=== PATIENT | male | born 1945 | race Caucasian/White ===

== ENCOUNTER → 2016-12-24 | Outpatient (CLI) | payer MEDICARE, OTHER ==
[2016-12-24 12:42] LABS: Basophils # (auto) 0 uL; Basophils % (auto) 0.6 % (0.0-2.0); Eosinophils # (auto) 0.2 uL; Eosinophils % (auto) 2.4 % (0.0-7.0); Hematocrit 49.4 % (41.0-53.0); Hemoglobin 16.3 g/dL (13.5-17.5); Lymphocytes # (auto) 2.3 uL; Mean Corpuscular Hemoglobin 30.7 pg (28.0-32.0); Mean Corpuscular Hgb Conc. 32.9 g/dL (32.0-36.0); Mean Corpuscular Volume 93.2 fL (80.0-100.0); Mean Platelet Volume 8.9 fL (7.4-10.4); Monocytes # (auto) 0.6 uL; Neutrophils # (auto) 4.9 uL; Platelet Count (auto) 303 10^3/uL (140-450); Red Cell Distribution Width 13.7 % (11.6-16.0)
[2016-12-24 14:15] LABS: Albumin 3.9 g/dL (3.4-5.0); BUN/Creatinine Ratio 18.8; Bilirubin, Direct 0.2 mg/dL (0-0.2); Bilirubin, Total 0.6 mg/dL (0.2-1.0); Potassium 4.1 mmol/L (3.5-5.1); Total Protein 7.8 g/dL (6.4-8.2)
== END | disposition home or self-care (01) ==
LOC: LAB 09:06
PROVIDERS: ATTEND Internal Medicine Cardiovascular Disease
DX: I10 Essential (primary) hypertension (principal); E78.00 Pure hypercholesterolemia, unspecified; K74.1 Hepatic sclerosis; E11.9 Type 2 diabetes mellitus without complications; R97.20 Elevated prostate specific antigen [PSA]; R53.81 Other malaise; E03.9 Hypothyroidism, unspecified; D64.9 Anemia, unspecified
CPT/HCPCS: 36415; 80048; 80061; 80076; 83036; 84153; 84403; 84443; 85025

== ENCOUNTER → 2017-02-01 | Outpatient (CLI) | payer MEDICARE, OTHER | END | disposition home or self-care (01) | LOC: HDHVI->DVH 11:23 | PROVIDERS: ATTEND Internal Medicine Cardiovascular Disease | DX: J44.9 Chronic obstructive pulmonary disease, unspecified (principal) | CPT/HCPCS: 93880 ==

== ENCOUNTER → 2017-02-24 | Outpatient (CLI) | payer MEDICARE, OTHER | END | disposition home or self-care (01) | LOC: Rad HDHVI 13:37 | PROVIDERS: ATTEND Internal Medicine Cardiovascular Disease | DX: Z86.79 Personal history of other diseases of the circulatory system (principal); F17.210 Nicotine dependence, cigarettes, uncomplicated | CPT/HCPCS: 78452; 93017; 96374; A9500 ==

== ENCOUNTER → 2017-08-29 | Outpatient (CLI) | payer MEDICARE, OTHER | END | disposition home or self-care (01) | LOC: LAB 11:10 | DX: Z11.3 Encounter for screening for infections with a predominantly sexual mode of transmission (principal) | CPT/HCPCS: 86592 ==

== ENCOUNTER → 2018-03-15 | Outpatient (CLI) | payer MEDICARE, OTHER ==
[~2018-03-15] VITALS: Ht 177.8 cm; Wt 59.0 kg
[2018-03-15 12:38] LABS: Basophils # (auto) 0.1 uL; Basophils % (auto) 0.8 % (0.0-2.0); Eosinophils # (auto) 0.2 uL; Eosinophils % (auto) 2.4 % (0.0-7.0); Hematocrit 48.4 % (41.0-53.0); Hemoglobin 16.3 g/dL (13.5-17.5); Lymphocytes # (auto) 2.5 uL; Mean Corpuscular Hemoglobin 31.3 pg (28.0-32.0); Mean Corpuscular Hgb Conc. 33.7 g/dL (32.0-36.0); Mean Corpuscular Volume 92.9 fL (80.0-100.0); Monocytes # (auto) 0.8 uL; Monocytes % (auto) 8.9 % (0.0-12.0); Neutrophils # (auto) 5.7 uL; Neutrophils % (auto) 60.9 % (37.0-80.0); Nucleated Red Blood Cells % 0.1 %; Platelet Count (auto) 235 10^3/uL (140-450); Red Blood Cells 5.21 10^6/uL (4.5-5.90); Red Cell Distribution Width 14.6 % (11.8-14.3); White Blood Cell 9.4 10^3/uL (4.4-10.8)
[2018-03-15 13:00] LABS: BUN/Creatinine Ratio 18.3; Free T4 (Free Thyroxine) 1.18 ng/dL (0.89-1.76); Potassium 4.2 mmol/L (3.5-5.1); Prostate Specific Antigen 1.83 ng/mL (0.0-4.0)
[2018-03-15 13:01] LABS: Albumin 3.9 g/dL (3.4-5.0); Bilirubin, Total 0.3 mg/dL (0.2-1.0); Calcium 9.2 mg/dL (8.5-10.1); Total Protein 7.3 g/dL (6.4-8.2)
[2018-03-15 17:30] LABS: Urine Blood Negative /uL (Negative); Urine Specific Gravity 1.023 (1.001-1.035)
== END | disposition home or self-care (01) ==
LOC: Rad HDHVI 10:08
PROVIDERS: ATTEND Internal Medicine Cardiovascular Disease
DX: Z00.01 Encounter for general adult medical examination with abnormal findings (principal); M65.341 Trigger finger, right ring finger; M25.531 Pain in right wrist; E03.9 Hypothyroidism, unspecified; E55.9 Vitamin D deficiency, unspecified; E11.9 Type 2 diabetes mellitus without complications; C61 Malignant neoplasm of prostate; E29.1 Testicular hypofunction; D51.9 Vitamin B12 deficiency anemia, unspecified; N39.0 Urinary tract infection, site not specified
CPT/HCPCS: 36415; 78452; 80053; 80061; 81003; 82306; 82607; 83036; 84153; 84403; 84439; 84443; 85025; 93017; 96374; A9500

== ENCOUNTER → 2018-07-05 | Outpatient (CLI) | payer MEDICARE, OTHER ==
[~2018-07-05] MED LIST: IOHEXOL 350 MG/ML 100ML IJ ONE
[2018-07-05 11:30] VITALS: BP 138/72
[2018-07-05 12:25] VITALS: BP 132/85
== END | disposition home or self-care (01) ==
LOC: Rad HDHVI 11:27
PROVIDERS: ATTEND Internal Medicine Cardiovascular Disease
DX: J43.9 Emphysema, unspecified (principal); J98.11 Atelectasis; I70.8 Atherosclerosis of other arteries; E11.9 Type 2 diabetes mellitus without complications
CPT/HCPCS: 71275; 82565; G0463; Q9967

== ENCOUNTER 2018-11-09 17:34 | Inpatient (IN) | payer MEDICARE, OTHER ==
[~2018-11-09] VITALS: Ht 172.7 cm; Wt 66.0 kg
[2018-11-09 19:10] LABS: Alanine Aminotransferase 26 U/L (16-61); Albumin 3.8 g/dL (3.4-5.0); Anion Gap 6 (5-15); Aspartate Aminotransferase 18 U/L (15-37); BUN/Creatinine Ratio 15.2; Blood Urea Nitrogen 15 mg/dL (7-18); Calcium 9.3 mg/dL (8.5-10.1); Carbon Dioxide 28 mmol/L (21-32); Chloride 105 mmol/L (98-107); GFR African American > 60 mL/min; GFR Non-African American > 60 mL/min; Glucose 89 mg/dL (74-106); Potassium 3.7 mmol/L (3.5-5.1); Sodium 139 mmol/L (136-145)
[2018-11-09 19:15] LABS: Alkaline Phosphatase 76 U/L (45-117); Bilirubin, Total 0.4 mg/dL (0.2-1.0)
[2018-11-09 19:18] LABS: Basophils # (auto) 0 uL; Basophils % (auto) 0.4 % (0.0-2.0); Eosinophils # (auto) 0.4 uL; Eosinophils % (auto) 3.6 % (0.0-7.0); Hematocrit 47.7 % (41.0-53.0); Hemoglobin 16.3 g/dL (13.5-17.5); Lymphocytes # (auto) 3.2 uL; Lymphocytes % (auto) 30.3 % (10.0-50.0); Mean Corpuscular Hemoglobin 31.6 pg (28.0-32.0); Mean Corpuscular Hgb Conc. 34.1 g/dL (32.0-36.0); Mean Corpuscular Volume 92.5 fL (80.0-100.0); Monocytes % (auto) 9.4 % (0.0-12.0); Neutrophils # (auto) 5.9 uL; Neutrophils % (auto) 56.3 % (37.0-80.0); Nucleated Red Blood Cells % 0.2 %; Platelet Count (auto) 269 10^3/uL (140-450); Red Blood Cells 5.15 10^6/uL (4.5-5.90); Red Cell Distribution Width 13.3 % (11.8-14.3); White Blood Cell 10.5 10^3/uL (4.4-10.8)
[2018-11-09] MEDS ORDERED: NITROGLYCERIN 0.4 MG SL TAB SL PRN (21:45)
[2018-11-09] MEDS ORDERED: MORPHINE SULFATE 4 MG/ML SYR/VIAL IV PRN (21:45)
[2018-11-09] MEDS ORDERED: HCTZ25T PO (21:57)
[2018-11-09] MEDS ORDERED: PRAS10TA6 PO (21:57)
[2018-11-09] MEDS ORDERED: ASCO500C49 PO (21:57)
[2018-11-09] MEDS ORDERED: FLUT1SPR5 (21:57)
[2018-11-09] MEDS ORDERED: IBUP-781 PO (21:57)
[2018-11-09] MEDS ORDERED: COEN400C8 PO (21:57)
[2018-11-09] MEDS ORDERED: CHOL200021 PO (21:57)
[2018-11-09] MEDS ORDERED: CALC667C PO (21:57)
[2018-11-09] MEDS ORDERED: CETI1TAB36 PO (21:57)
[2018-11-09 21:59] VITALS: BP 138/99
[2018-11-09] MEDS: ALBUTEROL SULF 2.5 MG/0.5ML(0.5%) NEB SOLN NEB SCH (22:00)
[2018-11-09] MEDS: SODIUM CHLORIDE 0.9% 1,000 ML IV SCH (22:30)
[2018-11-09 23:15] VITALS: BP 113/74
--- NOTE | 2018-11-09 23:15 | NUR ---
Telemetry admit from ER PAMELA PARKER admitted to Telemetry unit after SBAR received. Patient oriented to Wanda rueda RN, unit, room, bed, and unit policies regarding patient care and visiting hours. Patient now on continuous telemetry monitoring, tele box #30 and telemetry reading on arrival to unit is SINUS RHYTHM. Patient weighed by bedscale and encouraged to call if they need something. All questions and concerns addressed, patient verbalized understanding.
--- NOTE | 2018-11-10 00:15 | NUR ---
PERSONAL BELONGINGS PT STATES HE HAS A POCKET KNIFE IN HIS POSSESSION WILL PAGE SECURITY TO TAKE KNIFE INTO SAFE KEEPING
--- NOTE | 2018-11-10 01:13 | NUR ---
POCKET KNIFE "SKIP" FROM SECURITY PICKED UP PATIENT POCKET KNIFE PT EDUCATED THAT IT WILL BE RETURNED UPON DISCHARGE
[2018-11-10 01:32] LABS: Urine Bacteria FEW /hpf (None Seen); Urine Blood Negative /uL (Negative); Urine Specific Gravity 1.014 (1.001-1.035); Urine WBC 2 /hpf (0 - 3)
--- NOTE | 2018-11-10 01:34 | NUR ---
Respiratory note: AT BEDSIDE TO ASSESS PT. POX 94% ON RA. HR 98, BS ARE DIMINISHED CLEAR T/O. TX NOT INDICATED AT THIS TIME.
[2018-11-10 05:00] VITALS: BP 98/63
[2018-11-10] MEDS: ALBUTEROL SULF 2.5 MG/0.5ML(0.5%) NEB SOLN NEB SCH ×2 (06:00→14:10)
--- NOTE | 2018-11-10 07:19 | NUR ---
CLOSING NOTE REPORT ENDORSED TO DAY SHIFT RN PT IS SLEEPING. NO S/S OF DISTRESS CALL LIGHT WITHIN REACH
[2018-11-10 09:00] VITALS: BP 100/66
[2018-11-10] MEDS: SODIUM CHLORIDE 0.9% 1,000 ML IV SCH ×2 (09:58→18:39)
--- NOTE | 2018-11-10 10:20 | NUR ---
Respiratory note: PRN MED NEB TX NOT INDICATED AT THIS TIME, PATIENT IS RESTING COMFORTABLE IN BED WITH NO SS OF SOB/ RESP DISTRESS. SPO2 95% @ RA, HR 78, RR 16, B/S CLEAR WHITNEY T/O. WILL ENDORSE CARE TO NIGHT RT.
[2018-11-10] MEDS: cefTRIAXone 1GM/50ML D5W 50 ML IV SCH (11:55)
[2018-11-10 13:00] VITALS: BP 93/61
[2018-11-10 17:14] VITALS: BP 108/67
--- NOTE | 2018-11-10 19:20 | NUR ---
OPENING NOTE REPORT RECEIVED FROM DAY SHIFT RN. PATIENT RESTING COMFORTABLY IN BED. PT DENIES ANY PAIN OR DISTRESS AT THIS TIME. POC DISCUSSED FOR TONIGHT, ALL QUESTIONS ANSWERED. WILL MONITOR Q1H PRN THROUGHOUT SHIFT, CALL LIGHT WITHIN REACH.
[2018-11-10 21:30] VITALS: BP 106/65
--- NOTE | 2018-11-10 22:58 | NUR ---
Respiratory note: ASSESSED PT FOR PRN MED NEB AT THIS TIME, PT SLEEPING AT THIS TIME, NO RESP DISTRESS NOTED, NO TX INDICATED, PULSE OX 91% ON RA, HR 74, RR 20, BILATERAL BS DIMINISHED.
[2018-11-11] MEDS: SODIUM CHLORIDE 0.9% 1,000 ML IV SCH ×2 (04:02→14:48)
[2018-11-11 04:54] VITALS: BP 105/62
--- NOTE | 2018-11-11 07:27 | NUR ---
closing note report endorsed to day shift rn pt is sleeping. visible rise and fall of chest noted call light within reach
[2018-11-11 08:43] VITALS: BP 112/71
--- NOTE | 2018-11-11 09:24 | NUR ---
RT NOTE: PRN BREATHING TX. NOT INDICATED AT THIS TIME. NO S/S OF RESPIRATORY DISTRESS NOTED. PT. HR 82, RR 16, POX 95% ON R/A. PT. AWARE TO NOTIFY RN IF BREATHING TX. IS NEEDED.
[2018-11-11] MEDS ORDERED: GASTROGRAFIN 30 ML SOL ONE (12:19)
[2018-11-11 12:48] VITALS: BP 111/76
[2018-11-11] MEDS ORDERED: IOHEXOL 300 MG/ML 100ML BOTTLE IJ ONE (15:09)
[2018-11-11] MEDS: cefTRIAXone 1GM/50ML D5W 50 ML IV SCH (16:30)
[2018-11-11 17:18] VITALS: BP 122/73
--- NOTE | 2018-11-11 19:38 | NUR ---
Opening Shift Note Assumed care of patient, awake and alert. No S/S of distress/SOB or pain. Instructed on POC and to call for assist PRN, will continue to monitor for changes Q1hr and PRN.
[2018-11-11 22:00] VITALS: BP 116/70
--- NOTE | 2018-11-11 22:28 | NUR ---
Respiratory note: ASSESSED PT FOR PRN MED NEB AT THIS TIME, PT DENIES SOB AT THIS TIME, NO RESP DISTRESS NOTED, NO TX INDICATED. PULSE OX 92% ON RA, HR 76, RR 20, BILATERAL BS CLEAR
[2018-11-12] MEDS: SODIUM CHLORIDE 0.9% 1,000 ML IV SCH ×3 (00:40→22:35)
[2018-11-12 05:00] VITALS: BP 110/71
[2018-11-12 08:48] VITALS: BP 117/69
[2018-11-12] MEDS: cefTRIAXone 1GM/50ML D5W 50 ML IV SCH (09:38)
[2018-11-12 12:58] VITALS: BP 121/74
--- NOTE | 2018-11-12 14:10 | NUR ---
Respiratory note: PRN MEDNEB CHECK PT IN NO RESPIRATORY DISTRESS. SPO2 96% ON RA HR 62 RR 16 B/S CLEAR BILATERALLY. PT AWARE TO CALL RN AND HAVE THEM PAGE RT IF THEY BECOME SOB.
[2018-11-12 17:28] VITALS: BP 131/69
--- NOTE | 2018-11-12 19:00 | NUR ---
Patient care endorsed endorsed care to Apol rn
--- NOTE | 2018-11-12 20:05 | NUR ---
Respiratory note: ASSESSMENT FOR PRN MED NEB TX. HR 81, SPO2 95% ON ROOM AIR, RR 19, BS CLEAR. PT PRESENTING NO RESPIRATORY DISTRESS AT THIS TIME. WILL CONTINUE TO MONITOR.
[2018-11-12 20:31] VITALS: BP 131/69
[2018-11-12 22:02] VITALS: BP 124/80
[2018-11-13 05:19] VITALS: BP 105/64
[2018-11-13] MEDS: SODIUM CHLORIDE 0.9% 1,000 ML IV SCH ×2 (05:49→16:30)
[2018-11-13 07:50] VITALS: BP 116/67
[2018-11-13] MEDS: cefTRIAXone 1GM/50ML D5W 50 ML IV SCH (09:43)
--- NOTE | 2018-11-13 09:50 | NUR ---
Respiratory note: PT ASSESSED FOR PRN MN TX. HR 69, RR 14, POX 96% ON RA. BREATH SOUNDS CLEAR DIMINISHED. NO RESPIRATORY DISTRESS NOTED. PRN NOT INDICATED, NO TX GIVEN AT THIS TIME.
[2018-11-13 11:38] VITALS: BP 126/71
--- NOTE | 2018-11-13 15:01 | NUR ---
NUTRITION ASSESSMENT NOTES Please refer to link notes of nutrition screen form filed under the intervention section of the plan of care for further details. Est. Needs: 1650 kcal to 2000 kcal (25-30 kcal/kgBW), 66 gms to 79 gms pro (1.0-1.2 gms/kgBW). Will continue to monitor pertinent labs and reassess nutrient needs prn Thank you. Addendum: 11/13/18 at [address] Amended: Links added.
[2018-11-13 16:16] VITALS: BP 126/60
--- NOTE | 2018-11-13 17:23 | NUR ---
Spoke to MD MD Morrison aware of patients status. New orders received. Will d/c as ordered.
--- NOTE | 2018-11-13 19:10 | NUR ---
Discharge instructions given as ordered. Encourage to follow up with PMD as instructed. All questions and concerns addressed. Patient verbalized understanding. Medication reconciliation form completed and copy given to patient. IV removed with catheter intact, pressure dressing applied. Telemetry unit returned to [facility]. Patient awaiting pocket knife to be deliver to bedside by security staff. No s/s of distress or sob noted. Pt denies pain. Patient states he has his car down in ER. Pt awaiting knife with all other personal belongings. I informed oncoming sonny Lobo.
--- NOTE | 2018-11-13 19:38 | NUR ---
Jaspreet Song with security delivered knife to bedside.
--- NOTE | 2018-11-13 19:53 | NUR ---
Patient discharged via wheelchair assisted by TOPOGRAPHICAL ENGINEER, patient leaving via private car. Patient left in stable condition. No distress noted. All belongings accounted for.
== END 2018-11-13 19:45 | disposition home or self-care (01) | DRG 641 ==
LOC: ER 17:39 → TELE-WESTW 22:25
PROVIDERS: ADMIT Internal Medicine Cardiovascular Disease; ATTEND Internal Medicine Cardiovascular Disease
DX: E86.9 Volume depletion, unspecified (principal); R64 Cachexia; E46 Unspecified protein-calorie malnutrition; R53.1 Weakness; I10 Essential (primary) hypertension; J32.0 Chronic maxillary sinusitis; D72.829 Elevated white blood cell count, unspecified; F17.210 Nicotine dependence, cigarettes, uncomplicated; G83.9 Paralytic syndrome, unspecified; I25.10 Atherosclerotic heart disease of native coronary artery without angina pectoris; M19.90 Unspecified osteoarthritis, unspecified site; Z96.651 Presence of right artificial knee joint; J44.9 Chronic obstructive pulmonary disease, unspecified; Z88.1 Allergy status to other antibiotic agents; Z88.8 Allergy status to other drugs, medicaments and biological substances; Z68.22 Body mass index [BMI] 22.0-22.9, adult
CPT/HCPCS: 36415; 70450; 71046; 74177; 80053; 81001; 84484; 85025; 87040; 93005; 96374; G0378; J0696

== ENCOUNTER → 2019-03-20 | Outpatient (CLI) | payer MEDICARE, OTHER ==
[~2019-03-20] MED LIST changes: +ASCO500C49 PO; +CALC667C PO; +CETI1TAB36 PO; +CHOL200021 PO; +COEN400C8 PO; +FLUT1SPR5; +HCTZ25T PO; +IBUP-781 PO; -IOHEXOL 350 MG/ML 100ML IJ ONE; +PRAS10TA6 PO
== END | disposition home or self-care (01) ==
LOC: Rad HDHVI 10:59
PROVIDERS: ATTEND Internal Medicine Cardiovascular Disease
DX: I08.1 Rheumatic disorders of both mitral and tricuspid valves (principal); J44.9 Chronic obstructive pulmonary disease, unspecified; I25.10 Atherosclerotic heart disease of native coronary artery without angina pectoris
CPT/HCPCS: 93306

== ENCOUNTER → 2019-04-25 | Outpatient (CLI) | payer MEDICARE, OTHER ==
[~2019-04-25] VITALS: Ht 177.8 cm; Wt 63.5 kg
[~2019-04-25] MED LIST changes: +ADENOSINE 53 MG in GIVE UN-DILUTED 0 ML IV ONE; +ADENOSINE 90 MG/30 ML INJ IV ONE
[2019-04-25 15:47] LABS: Basophils # (auto) 0.1 uL; Basophils % (auto) 0.6 % (0.0-2.0); Eosinophils # (auto) 0.2 uL; Eosinophils % (auto) 2.1 % (0.0-7.0); Hematocrit 45.9 % (41.0-53.0); Hemoglobin 15.3 g/dL (13.5-17.5); Lymphocytes # (auto) 2.2 uL; Lymphocytes % (auto) 20.4 % (10.0-50.0); Mean Corpuscular Hemoglobin 30.9 pg (28.0-32.0); Mean Corpuscular Hgb Conc. 33.4 g/dL (32.0-36.0); Mean Corpuscular Volume 92.6 fL (80.0-100.0); Monocytes # (auto) 0.9 uL; Monocytes % (auto) 8.2 % (0.0-12.0); Neutrophils # (auto) 7.4 uL; Neutrophils % (auto) 68.7 % (37.0-80.0); Platelet Count (auto) 237 10^3/uL (140-450); Red Blood Cells 4.96 10^6/uL (4.5-5.90); Red Cell Distribution Width 14.2 % (11.8-14.3); White Blood Cell 10.7 10^3/uL (4.4-10.8)
[2019-04-25 15:51] LABS: Urine Blood Negative /uL (Negative); Urine Specific Gravity 1.008 (1.001-1.035)
[2019-04-25 15:54] LABS: Potassium 4.1 mmol/L (3.5-5.1)
[2019-04-25 16:02] LABS: Albumin 3.7 g/dL (3.4-5.0); BUN/Creatinine Ratio 14.7; Bilirubin, Total 0.8 mg/dL (0.2-1.0); Calcium 9.3 mg/dL (8.5-10.1); Total Protein 7.8 g/dL (6.4-8.2)
[2019-04-25 16:04] LABS: Free T4 (Free Thyroxine) 1.06 ng/dL (0.89-1.76)
[2019-04-25 16:05] LABS: Prostate Specific Antigen 1.3 ng/mL (0.0-4.0)
== END | disposition home or self-care (01) ==
LOC: Rad HDHVI 09:39
PROVIDERS: ATTEND Internal Medicine Cardiovascular Disease
DX: C61 Malignant neoplasm of prostate (principal); E03.9 Hypothyroidism, unspecified; E55.9 Vitamin D deficiency, unspecified; N39.0 Urinary tract infection, site not specified; D51.9 Vitamin B12 deficiency anemia, unspecified; J44.9 Chronic obstructive pulmonary disease, unspecified; I25.10 Atherosclerotic heart disease of native coronary artery without angina pectoris; E78.5 Hyperlipidemia, unspecified; R00.2 Palpitations; E78.00 Pure hypercholesterolemia, unspecified; Z79.899 Other long term (current) drug therapy
CPT/HCPCS: 36415; 78452; 80053; 80061; 81003; 82306; 82607; 83036; 84153; 84403; 84439; 84443; 85025; 93005; 96374; 96375; A9500; J0153

== ENCOUNTER → 2020-01-14 | Outpatient (CLI) | payer MEDICARE, OTHER ==
[~2020-01-14] MED LIST changes: -ADENOSINE 53 MG in GIVE UN-DILUTED 0 ML IV ONE; -ADENOSINE 90 MG/30 ML INJ IV ONE
== END | disposition home or self-care (01) ==
LOC: Rad HDHVI 14:01
PROVIDERS: ATTEND Internal Medicine Cardiovascular Disease
DX: I50.43 Acute on chronic combined systolic (congestive) and diastolic (congestive) heart failure (principal); I25.10 Atherosclerotic heart disease of native coronary artery without angina pectoris; I25.5 Ischemic cardiomyopathy
CPT/HCPCS: 93306

== ENCOUNTER → 2020-09-03 | Outpatient (CLI) | payer MEDICARE, OTHER ==
[2020-09-03 12:04] LABS: Basophils # (auto) 0.1 10 ^3/uL (0-0.2); Basophils % (auto) 0.8 % (0.0-2.0); Eosinophils # (auto) 0.2 10 ^3/uL (0-0.8); Eosinophils % (auto) 2.4 % (0.0-7.0); Hematocrit 44.9 % (41.0-53.0); Lymphocytes % (auto) 25.2 % (10.0-50.0); Mean Corpuscular Hemoglobin 31.1 pg (28.0-32.0); Mean Corpuscular Hgb Conc. 33.4 g/dL (32.0-36.0); Mean Corpuscular Volume 93.1 fL (80.0-100.0); Monocytes # (auto) 0.8 10 ^3/uL (0-1.3); Monocytes % (auto) 10.2 % (0.0-12.0); Neutrophils % (auto) 61.4 % (37.0-80.0); Nucleated Red Blood Cells % 0.1 %; Platelet Count (auto) 238 10^3/uL (140-450); Red Blood Cells 4.82 10^6/uL (4.5-5.90); Red Cell Distribution Width 13.5 % (11.8-14.3); White Blood Cell 8.1 10^3/uL (4.4-10.8)
[2020-09-03 12:10] LABS: Urine Blood Negative /uL (Negative); Urine Specific Gravity 1.007 (1.001-1.035)
[2020-09-03 12:26] LABS: Free T4 (Free Thyroxine) 1.04 ng/dL (0.89-1.76)
[2020-09-03 12:27] LABS: Prostate Specific Antigen 1.02 ng/mL (0.0-4.0)
[2020-09-03 12:30] LABS: Albumin 3.5 g/dL (3.4-5.0); BUN/Creatinine Ratio 13.8; Calcium 8.8 mg/dL (8.5-10.1); Potassium 3.5 mmol/L (3.5-5.1); Total Protein 7.1 g/dL (6.4-8.2)
[2020-09-03 12:34] LABS: Bilirubin, Total 0.6 mg/dL (0.2-1.0)
== END | disposition home or self-care (01) ==
LOC: LAB 10:13
PROVIDERS: ATTEND Internal Medicine Cardiovascular Disease
DX: C61 Malignant neoplasm of prostate (principal); D51.3 Other dietary vitamin B12 deficiency anemia; I10 Essential (primary) hypertension; E11.9 Type 2 diabetes mellitus without complications; E55.9 Vitamin D deficiency, unspecified; D64.9 Anemia, unspecified; R00.2 Palpitations; R53.1 Weakness; R30.0 Dysuria
CPT/HCPCS: 36415; 80053; 80061; 81003; 82306; 82607; 83036; 84153; 84403; 84439; 84443; 85025

== ENCOUNTER → 2021-01-30 | Outpatient (CLI) | payer MEDICARE, OTHER ==
[~2021-01-30] MED LIST changes: -HCTZ25T PO; +HYDR25TA5 PO; -IBUP-781 PO; +IBUP400T23 PO
== END | disposition home or self-care (01) ==
LOC: Rad HDHVI 11:56
PROVIDERS: ATTEND Internal Medicine Cardiovascular Disease
DX: M43.12 Spondylolisthesis, cervical region (principal); M25.78 Osteophyte, vertebrae; M48.02 Spinal stenosis, cervical region; M89.38 Hypertrophy of bone, other site; J43.9 Emphysema, unspecified; M48.50XA Collapsed vertebra, not elsewhere classified, site unspecified, initial encounter for fracture
CPT/HCPCS: 72125

== ENCOUNTER → 2021-02-25 | Outpatient (CLI) | payer MEDICARE, OTHER | END | disposition home or self-care (01) | LOC: Rad HDHVI 13:06 | PROVIDERS: ATTEND Internal Medicine Cardiovascular Disease | DX: S52.571A Other intraarticular fracture of lower end of right radius, initial encounter for closed fracture (principal); S52.611A Displaced fracture of right ulna styloid process, initial encounter for closed fracture; M25.831 Other specified joint disorders, right wrist; X58.XXXA Exposure to other specified factors, initial encounter; Y93.89 Activity, other specified; Y92.89 Other specified places as the place of occurrence of the external cause; Y99.8 Other external cause status | CPT/HCPCS: 73110 ==

== ENCOUNTER → 2021-06-03 | Outpatient (CLI) | payer MEDICARE, OTHER | END | disposition home or self-care (01) | LOC: Rad HDHVI 11:56 | PROVIDERS: ATTEND Internal Medicine Cardiovascular Disease | DX: M19.031 Primary osteoarthritis, right wrist (principal); M11.231 Other chondrocalcinosis, right wrist; M79.89 Other specified soft tissue disorders; I70.0 Atherosclerosis of aorta; R06.02 Shortness of breath; M25.531 Pain in right wrist | CPT/HCPCS: 71046; 73110 ==

== ENCOUNTER → 2021-12-22 | Outpatient (CLI) | payer MEDICARE, OTHER ==
[~2021-12-22] MED LIST changes: +PRAS10TA18 PO; -PRAS10TA6 PO
[2021-12-22 10:19] VITALS: BP 130/77
[2021-12-22 10:30] VITALS: BP 122/71
[2021-12-22 11:48] LABS: Basophils # (auto) 0.1 10 ^3/uL (0-0.2); Basophils % (auto) 0.8 % (0.0-2.0); Eosinophils # (auto) 0.1 10 ^3/uL (0-0.8); Eosinophils % (auto) 1.5 % (0.0-7.0); Hematocrit 46.3 % (41.0-53.0); Hemoglobin 15.5 g/dL (13.5-17.5); Lymphocytes % (auto) 23.1 % (10.0-50.0); Mean Corpuscular Hemoglobin 30.7 pg (28.0-32.0); Mean Corpuscular Hgb Conc. 33.5 g/dL (32.0-36.0); Mean Corpuscular Volume 91.5 fL (80.0-100.0); Monocytes # (auto) 0.7 10 ^3/uL (0-1.3); Neutrophils # (auto) 5.8 10 ^3/uL (1.6-8.6); Neutrophils % (auto) 66.6 % (37.0-80.0); Nucleated Red Blood Cells % 0.1 %; Red Blood Cells 5.07 10^6/uL (4.5-5.90); Red Cell Distribution Width 13.9 % (11.8-14.3); White Blood Cell 8.8 10^3/uL (4.4-10.8)
[2021-12-22 12:09] LABS: INR 1.02 (0.9-1.15); Partial Thromboplastin Time 29.1 sec (23.6-33.0)
[2021-12-22 12:30] LABS: Calcium 8.8 mg/dL (8.5-10.1); Potassium 3.2 mmol/L (3.5-5.1)
[2021-12-22 12:33] LABS: BUN/Creatinine Ratio 12.4
== END | disposition home or self-care (01) ==
LOC: Rad HDHVI 09:57
PROVIDERS: ATTEND Internal Medicine Cardiovascular Disease
DX: Z01.812 Encounter for preprocedural laboratory examination (principal); I11.0 Hypertensive heart disease with heart failure; I50.9 Heart failure, unspecified; R06.02 Shortness of breath
CPT/HCPCS: 36415; 71046; 80048; 85025; 85610; 85730; 93005; G0463

== ENCOUNTER 2021-12-24 08:33 | Day surgery (SDC) | payer MEDICARE, OTHER ==
[~2021-12-24] VITALS: Ht 177.8 cm; Wt 57.2 kg
[2021-12-24] MEDS ORDERED: LIDOCAINE 2%HCL (LOCAL ANESTH.) INJ 20ML MDV ONE (11:40)
[2021-12-24] MEDS ORDERED: IOHEXOL 350 MG/ML 100ML IJ ONE ×2 (11:40→11:44)
[2021-12-24] MEDS ORDERED: IODIXANOL 320MG/ML 100ML BTL IV ONE (11:40)
[2021-12-24] MEDS ORDERED: MIDAZOLAM HCL 2MG/2ML 2ml VIAL (1mg/ml) ONE (11:47)
[2021-12-24] MEDS ORDERED: fentaNYL CITRATE 100 MCG/2 ML VL ONE (11:47)
[2021-12-24] MEDS ORDERED: SODIUM CHL 0.9% 0 ML ONE (11:47)
[2021-12-24] MEDS ORDERED: ANGIOMAX 250 MG VIAL IV ONE (11:47)
== END 2021-12-24 15:25 | disposition home or self-care (01) ==
LOC: CATH 08:33
PROVIDERS: ATTEND Internal Medicine Cardiovascular Disease
DX: I73.9 Peripheral vascular disease, unspecified (principal); I11.0 Hypertensive heart disease with heart failure; I50.20 Unspecified systolic (congestive) heart failure; E78.5 Hyperlipidemia, unspecified; I25.2 Old myocardial infarction; F17.200 Nicotine dependence, unspecified, uncomplicated; J43.9 Emphysema, unspecified; Z87.01 Personal history of pneumonia (recurrent); Z83.3 Family history of diabetes mellitus; Z20.822 Contact with and (suspected) exposure to COVID-19
CPT/HCPCS: 75716; 93460; C1760; C1894; J1644; J2250; J3010; Q9967; U0003; 99152

== ENCOUNTER → 2022-04-14 | Outpatient (CLI) | payer MEDICARE, OTHER | END | disposition home or self-care (01) | LOC: LAB 11:05 | PROVIDERS: ATTEND Internal Medicine Cardiovascular Disease | DX: R94.4 Abnormal results of kidney function studies (principal) | CPT/HCPCS: 36415; 82565; 84520 ==

== ENCOUNTER → 2022-04-16 | Outpatient (CLI) | payer MEDICARE, OTHER ==
[~2022-04-16] MED LIST changes: +IOHEXOL 350 MG/ML 100ML IJ ONE
[2022-04-16 11:35] VITALS: BP 97/54
[2022-04-16 11:58] VITALS: BP 108/55
== END | disposition home or self-care (01) ==
LOC: Rad HDHVI 11:28
PROVIDERS: ATTEND Internal Medicine Cardiovascular Disease
DX: K76.0 Fatty (change of) liver, not elsewhere classified (principal); N28.1 Cyst of kidney, acquired; J98.11 Atelectasis; F17.290 Nicotine dependence, other tobacco product, uncomplicated
CPT/HCPCS: 71260; G0463; Q9967

== ENCOUNTER → 2022-04-23 | Outpatient (CLI) | payer MEDICARE, OTHER ==
[~2022-04-23] MED LIST changes: -IOHEXOL 350 MG/ML 100ML IJ ONE
== END | disposition home or self-care (01) ==
LOC: Rad HDHVI 10:06
PROVIDERS: ATTEND Internal Medicine Cardiovascular Disease
DX: E78.5 Hyperlipidemia, unspecified (principal); R06.02 Shortness of breath
CPT/HCPCS: 93306

== ENCOUNTER → 2022-08-06 | Outpatient (CLI) | payer MEDICARE, OTHER | END | disposition home or self-care (01) | LOC: Rad HDHVI 11:50 | PROVIDERS: ATTEND Internal Medicine Cardiovascular Disease | DX: M19.011 Primary osteoarthritis, right shoulder (principal); M25.511 Pain in right shoulder | CPT/HCPCS: 73200 ==

== ENCOUNTER → 2023-03-16 | Outpatient (CLI) | payer MEDICARE, OTHER ==
[~2023-03-16] MED LIST changes: +IBUP1TAB4 PO; -IBUP400T23 PO; -PRAS10TA18 PO; +PRAS10TA19 PO
== END | disposition home or self-care (01) ==
LOC: Rad HDHVI 11:03
PROVIDERS: ATTEND Internal Medicine Cardiovascular Disease
DX: M19.031 Primary osteoarthritis, right wrist (principal); M25.531 Pain in right wrist
CPT/HCPCS: 73110

== ENCOUNTER → 2023-03-23 | Outpatient (CLI) | payer MEDICARE, OTHER | END | disposition home or self-care (01) | LOC: Rad HDHVI 13:00 | PROVIDERS: ATTEND Internal Medicine Cardiovascular Disease | DX: R06.02 Shortness of breath (principal); I10 Essential (primary) hypertension | CPT/HCPCS: 93306 ==

== ENCOUNTER → 2024-02-03 | Outpatient (CLI) | payer MEDICARE, OTHER ==
[~2024-02-03] MED LIST changes: +IOHEXOL 350 MG/ML 100ML IJ ONE; +READI-CAT 2 (BARIUM SULF)(VANILLA SMOOTHIE) 450ML ONE
[2024-02-03 11:10] VITALS: BP 110/60; PULSE 61; RESP 20; O2SAT 96
[2024-02-03 12:05] VITALS: BP 118/67; PULSE 63; RESP 20; O2SAT 92
== END | disposition home or self-care (01) ==
LOC: Rad HDHVI 11:07
PROVIDERS: ATTEND Internal Medicine Cardiovascular Disease
DX: M43.8X7 Other specified deforming dorsopathies, lumbosacral region (principal); R63.4 Abnormal weight loss; M51.37 Other intervertebral disc degeneration, lumbosacral region; I70.90 Unspecified atherosclerosis; M47.817 Spondylosis without myelopathy or radiculopathy, lumbosacral region
CPT/HCPCS: 71260; 74177; G0463; Q9967

== ENCOUNTER → 2024-05-11 | Outpatient (CLI) | payer MEDICARE, OTHER ==
[~2024-05-11] MED LIST changes: -READI-CAT 2 (BARIUM SULF)(VANILLA SMOOTHIE) 450ML ONE
[2024-05-11 12:35] VITALS: BP 112/62; PULSE 66; RESP 16; O2SAT 97
[2024-05-11 12:46] VITALS: BP 122/64; PULSE 59; RESP 16; O2SAT 97
== END | disposition home or self-care (01) ==
LOC: Rad HDHVI 12:21
PROVIDERS: ATTEND Internal Medicine Cardiovascular Disease
DX: J43.9 Emphysema, unspecified (principal); R06.02 Shortness of breath; J44.9 Chronic obstructive pulmonary disease, unspecified; R64 Cachexia; Z79.899 Other long term (current) drug therapy
CPT/HCPCS: 71260; G0463; Q9967

== ENCOUNTER → 2024-06-12 | Outpatient (CLI) | payer MEDICARE, OTHER ==
[~2024-06-12] MED LIST changes: -IOHEXOL 350 MG/ML 100ML IJ ONE
== END | disposition home or self-care (01) ==
LOC: Rad HDHVI 12:51
PROVIDERS: ATTEND Internal Medicine Cardiovascular Disease
DX: I08.0 Rheumatic disorders of both mitral and aortic valves (principal); R07.89 Other chest pain; R06.02 Shortness of breath
CPT/HCPCS: 93306

== ENCOUNTER → 2024-07-11 | Outpatient (CLI) | payer MEDICARE, OTHER ==
[~2024-07-11] VITALS: Ht 177.8 cm; Wt 56.7 kg
[~2024-07-11] MED LIST changes: +ADENOSINE 48 MG in GIVE UN-DILUTED 0 ML IV ONE; +DIPYRIDAMOLE (5MG/ML) 10 ML VIAL IV ONE
== END | disposition home or self-care (01) ==
LOC: Rad HDHVI 13:27
PROVIDERS: ATTEND Internal Medicine Cardiovascular Disease
DX: I11.0 Hypertensive heart disease with heart failure (principal); I50.20 Unspecified systolic (congestive) heart failure; I42.0 Dilated cardiomyopathy; J43.9 Emphysema, unspecified; E78.00 Pure hypercholesterolemia, unspecified; I25.5 Ischemic cardiomyopathy; I42.1 Obstructive hypertrophic cardiomyopathy
CPT/HCPCS: 78452; 93017; 96374; A9500; J0153

== ENCOUNTER 2024-10-06 20:54 | Inpatient (IN) | payer MEDICARE, OTHER, MEDICAID ==
[~2024-10-06] VITALS: Ht 177.8 cm; Wt 58.2 kg
[~2024-10-06 20:54] MED LIST changes: -ADENOSINE 48 MG in GIVE UN-DILUTED 0 ML IV ONE; -DIPYRIDAMOLE (5MG/ML) 10 ML VIAL IV ONE
--- NOTE | 2024-10-06 21:30 | ED.PDOC ---
SOB-HPI HPI Comments 78-year-old male came to ER due to shortness of breath. Patient does have history of COPD, emphysema, states that he has been having cough and shortness of breath since yesterday. Denies any fever or acute chest pains. Worsening of shortness of breath with wheezing prompted patient to come to the ER. Patient is saturating 91% on room air. Chief Complaint: Shortness of breath Time Seen by MD: 21:29 Primary Care Provider: MI De Jesus notes: Nurses Notes Information Source: Patient Mode of Arrival: Ambulatory Severity: Moderate Timing: Hours Duration: Since onset Context: At Rest, With Light Exertion PE Risk Factors: None History of: COPD Prehospital treatment: None Modifying Factors: Nothing Associated Signs and Symptoms: Wheeze, Cough Quality: Tightness If cough with SOB: Non-Productive Past Medical History PAST MEDICAL HISTORY: COPD Surgical History: Denies all surgeries Family History Family History: Reviewed,noncontributory to illness Social History Smoker: Less Than 1 Pack/Day Alcohol: Denies ETOH Use Drugs: Denies Drug Use Lives In: Home Constitutional: denies: chills, diaphoresis, fatigue, fever, malaise, sweats, weakness, others EENTM: denies: blurred vision, double vision, ear bleeding, ear discharge, ear drainage, ear pain, ear ringing, eye pain, eye redness, hearing loss, mouth pain, mouth swelling, nasal discharge, nose bleeding, nose congestion, nose pain, photophobia, tearing, throat pain, throat swelling, voice changes, others Respiratory: reports: cough, SOB at rest, shortness of breath; denies: hemoptysis, orthopnea, SOB with excertion, stridor, wheezing, others Cardiovascular: denies: chest pain, dizzy spells, diaphoresis, Dyspnea on exertion, edema, irregular heart beat, left arm pain, lightheadedness, palpitations, PND, syncope, others Gastrointestinal: denies: abdomen distended, abdominal pain, blood streaked bowels, constipated, diarrhea, dysphagia, difficulty swallowing, hematemesis, melena, nausea, poor appetite, poor fluid intake, rectal bleeding, rectal pain, vomiting, others Genitourinary: denies: burning, dysuria, flank pain, frequency, hematuria, incontinence, penile discharge, penile sore, pain, testicle pain, testicle swelling, urgency, others Neurological: denies: dizziness, fainting, headache, left sided numbness, left sided weakness, numbness, paresthesia, pre-existing deficit, right sided numbness, right sided weakness, seizure, speech problems, tingling, tremors, weakness, others Musculoskeletal: denies: back pain, gout, joint pain, joint swelling, muscle pain, muscle stiffness, neck pain, others Integumetry: denies: bruises, change in color, change in hair/nails, dryness, laceration, lesions, lumps, rash, wounds, others Allergic/Immunocompromised: denies: Difficulty Healing, Frequent Infections, Hives, Itching, others Hematologic/Lymphatic: denies: anemia, blood clots, easy bleeding, easy bruising, swollen glands, others Endocrine: denies: excessive hunger, excessive sweating, excessive thirst, excessive urination, flushing, intolerance to cold, intolerance to heat, unexplained weight gain, unexplained weight loss, others Psychiatric: denies: anxiety, bipolar disorder, depression, hopeless, panic disorder, schizophrenia, sleepless, suicidal, others Physical Exam General Appearance: No Apparent Distress, Normal HEENT: Normal ENT Inspection, Pharynx Normal, TMs Normal Neck: Full Range of Motion, Non-Tender, Normal, Normal Inspection Respiratory: Chest Non-Tender, Lungs Clear, No Accessory Muscle Use, No Respiratory Distress, Normal Breath Sounds Cardiovascular: No Edema, No JVD, No Murmur, No Gallop, Normal Peripheral Pulses, Regular Rate/Rhythm Breast Exam: Deferred Gastrointestinal: No Organomegaly, Non Tender, No Pulsatile Mass, Normal Bowel Sounds, Soft Genitalia: Deferred Pelvic: Deferred Rectal: Deferred Extremities: No calf tenderness, Normal capillary refill, Normal inspection, Normal range of motion, Non-tender, No pedal edema Musculoskeletal : Apperance: Normal Neurologic: Alert, gas operation manager II-XII nml as Tested, No Motor Deficits, Normal Affect, Normal Mood, No Sensory Deficits Cerebellar Function: Normal Reflexes: Normal Skin: Dry, Normal Color, Warm Lymphatic: No Adenopathy Was a procedure done? Was a procedure done?: No Differential Dx Differential Diagnosis: Asthma, Bronchitis, COPD, Hyperventilation, Myocardial infarction, Pneumonia, Respiratory Distress X-Ray, Labs, Meds, VS Vital Signs Date Time Temp Pulse Resp B/P (MAP) Pulse Ox O2 Delivery O2 Flow Rate FiO2 10/06/24 21:52 20 94 Room Air* 0 21 10/06/24 21:31 96 10/06/24 21:28 97.7 99 18 136/68 (90) 91 10/06/24 21:21 18 91 Room Air* 0 21 Lab Test 10/06/24 21:38 Range/Units White Blood Count 9.1 4.4-10.8 10^3/uL Red Blood Count 5.32 4.5-5.90 10^6/uL Hemoglobin 16.5 13.5-17.5 g/dL Hematocrit 49.0 41.0-53.0 % Mean Corpuscular Volume 92.1 80.0-100.0 fL Mean Corpuscular Hemoglobin 31.1 28.0-32.0 pg Mean Corpuscular Hemoglobin Concent 33.7 32.0-36.0 g/dL Red Cell Distribution Width 13.7 11.8-14.3 % Platelet Count 234 140-450 10^3/uL Mean Platelet Volume 8.3 6.9-10.8 fL Neutrophils (%) (Auto) 54.7 37.0-80.0 % Lymphocytes (%) (Auto) 31.2 10.0-50.0 % Monocytes (%) (Auto) 10.8 0.0-12.0 % Eosinophils (%) (Auto) 2.7 0.0-7.0 % Basophils (%) (Auto) 0.6 0.0-2.0 % Neutrophils # (Auto) 5.0 1.6-8.6 10 ^3/uL Lymphocytes # (Auto) 2.8 0.4-5.4 10 ^3/uL Monocytes # (Auto) 1.0 0-1.3 10 ^3/uL Eosinophils # (Auto) 0.2 0-0.8 10 ^3/uL Basophils # (Auto) 0.1 0-0.2 10 ^3/uL Nucleated Red Blood Cells 0.0 % Sodium Level 142 136-145 mmol/L Potassium Level 3.6 3.5-5.1 mmol/L Chloride Level 106 98-107 mmol/L Carbon Dioxide Level 28 20-31 mmol/L Anion Gap 8 5-15 Blood Urea Nitrogen 27 H 9-23 mg/dL Creatinine 1.13 0.700-1.30 mg/dL Glomerular Filtration Rate Calc 66 >90 mL/min BUN/Creatinine Ratio 23.9 H 10.0-20.0 Serum Glucose 132 H 74-106 mg/dL Calcium Level 9.8 8.7-10.4 mg/dL Total Bilirubin 0.6 0.2-1.0 mg/dL Aspartate Amino Transferase (AST) 21 13-40 U/L Alanine Aminotransferase (ALT) 21 7-40 U/L Alkaline Phosphatase 63 46-116 U/L Troponin I High Sensitivity 59 *H </=54 ng/L B-Type Natriuretic Peptide 107.81 0-100 pg/mL Total Protein 6.9 5.7-8.2 g/dL Albumin 4.3 3.2-4.8 g/dL Current Medications Medications (Trade) Dose Ordered Sig/Gloria Route Start Time Stop Time Status Last Admin Albuterol (Ventolin Medneb) 5 mg ONCE ONCE N 10/06/24 21:30 10/06/24 21:31 DC 10/06/24 21:52 Ipratropium Wadley (Atrovent Medneb) 0.5 mg ONCE ONCE N 10/06/24 21:30 10/06/24 21:31 DC 10/06/24 21:52 Prednisone 40 mg ONCE ONCE PO 10/06/24 21:30 10/06/24 21:31 DC 10/06/24 21:53 Time of 1ST Reevaluation: 21:28 Reevaluation 1ST: Unchanged Patient Education/Counseling: Diagnosis, Treatment Family Education/Counseling: No Family Present Departure 1 Departure Time of Disposition: 23:03 Impression: Primary Impression: Respiratory failure with hypoxia Additional Impressions: COPD exacerbation Intermediate coronary syndrome Disposition: ADMITTED INPATIENT Admit to: Tele Condition: Guarded Critical Care Note Critical Care Time?: Yes (35 min-critical care time only) Critical care comment: Low oxygen saturation Total critical care time: Approximately 36 minutes Due to a high probability of clinically significant, life threatening deterioration, the patient required my highest level of preparedness to intervene emergently and I personally spent this critical care time directly and personally managing the patient. This critical care time included obtaining a history; examining the patient; pulse oximetry; ordering and review of studies; arranging urgent treatment with development of a management plan; evaluation of patient's response to treatment; frequent reassessment; and, discussions with other providers. This critical care time was performed to assess and manage the high probability of imminent, life-threatening deterioration that could result in multi-organ failure. It was exclusive of separately billable procedures and treating other patients. Stability Stability form required: No Heart Score Heart Score: Heart Score Response (Comments) Value History Slightly Suspicious 0 EKG Normal 0 Age >65 2 Risk Factors >3 or Hx ASHD 2 Troponin Normal limit 0 Total 4 I personally scribed for BOSTON BUNN MD ([email or web address]) on 10/06/24 at 21:30. Electronically submitted by Mac Erickson ([email or web address]). BOSTON BUNN MD Oct 06, 2024 21:30
[2024-10-06] MEDS: ALBUTEROL SULF 2.5 MG/0.5ML(0.5%) NEB SOLN HHN ONE (21:52)
[2024-10-06] MEDS: IPRATROPIUM BROM 0.5 MG/2.5ML INH SOL HHN ONE (21:52)
[2024-10-06] MEDS: predniSONE 20 MG TAB PO ONE (21:53)
[2024-10-06 21:54] LABS: Basophils # (auto) 0.1 10 ^3/uL (0-0.2); Basophils % (auto) 0.6 % (0.0-2.0); Eosinophils # (auto) 0.2 10 ^3/uL (0-0.8); Eosinophils % (auto) 2.7 % (0.0-7.0); Hemoglobin 16.5 g/dL (13.5-17.5); Lymphocytes # (auto) 2.8 10 ^3/uL (0.4-5.4); Lymphocytes % (auto) 31.2 % (10.0-50.0); Mean Corpuscular Hemoglobin 31.1 pg (28.0-32.0); Mean Corpuscular Hgb Conc. 33.7 g/dL (32.0-36.0); Mean Corpuscular Volume 92.1 fL (80.0-100.0); Monocytes % (auto) 10.8 % (0.0-12.0); Neutrophils % (auto) 54.7 % (37.0-80.0); Platelet Count (auto) 234 10^3/uL (140-450); Red Blood Cells 5.32 10^6/uL (4.5-5.90); Red Cell Distribution Width 13.7 % (11.8-14.3); White Blood Cell 9.1 10^3/uL (4.4-10.8)
--- NOTE | 2024-10-06 21:57 | DVH ---
CHEST RADIOGRAPH Indication: SOB Technique: Single frontal view of the chest was obtained COMPARISON: None FINDINGS: Lines and Tubes: None Lungs: Clear Pleura: No effusion. No pneumothorax. Cardiomediastinal contours: Unremarkable Bones: Unremarkable IMPRESSION: 1. No acute disease.
[2024-10-06 22:13] LABS: Alanine Aminotransferase 21 U/L (7-40); Albumin 4.3 g/dL (3.2-4.8); Alkaline Phosphatase 63 U/L (46-116); Anion Gap 8 (5-15); Aspartate Aminotransferase 21 U/L (13-40); BUN/Creatinine Ratio 23.9 (10.0-20.0); Bilirubin, Total 0.6 mg/dL (0.2-1.0); Calcium 9.8 mg/dL (8.7-10.4); Carbon Dioxide 28 mmol/L (20-31); Chloride 106 mmol/L (98-107); Potassium 3.6 mmol/L (3.5-5.1); Sodium 142 mmol/L (136-145); Total Protein 6.9 g/dL (5.7-8.2)
[2024-10-06 22:14] LABS: Blood Urea Nitrogen 27 mg/dL (9-23); Glucose 132 mg/dL (74-106)
[2024-10-07] VITALS (8 sets, daily range): BP systolic 130; BP diastolic 77; PULSE 70–99; RESP 15–25; TEMP 97.6; O2SAT 90–98
[2024-10-07] MEDS: ASPirin-EC 81 mg tab PO ONE (01:25)
[2024-10-07] MEDS ORDERED: MORPHINE SULFATE INJ 2 MG/ml SYRG IV PRN (03:15)
[2024-10-07] MEDS ORDERED: DOCUSATE SOD 100 MG CAP PO PRN (03:15)
[2024-10-07] MEDS ORDERED: ONDANSETRON HCL 4 MG/2 ML VIAL IV PRN (03:15)
[2024-10-07] MEDS ORDERED: NITROGLYCERIN 0.4 MG SL TAB SL PRN (03:15)
[2024-10-07] MEDS ORDERED: HYDROcodone-ACET 5/325MG TAB PO PRN (03:15)
[2024-10-07] MEDS ORDERED: ACETAMINOPHEN 325 MG TAB PO PRN (03:15)
--- NOTE | 2024-10-07 03:24 | DVHHP2 ---
History of Present Illness Reason for Visit: Acute respiratory failure with hypoxia History of Present Illness The patient is a 78-year-old male with past medical history of COPD who presented to [facility] ED with complaint of shortness of breaths. Patient reports symptoms progressively get worse with cough, hypoxia, SOB at rest, wheezing, getting worse that prompted this visit. Patient was seen and evaluated in the ED, laboratory data shows WBC 9.1, platelets 234, sodium 142, potassium 3.6, BUN 27, creatinine 1.13, glucose 132, troponin 56, BNP 107.81, blood pressure 113/65, heart rate 78, temperature 98.1 F, O2 saturation 90% on oxygen. Chest x-ray show no acute cardiopulmonary disease. Please see medication orders section in the computer. On my assessment, patient denies chest pain, no headache, no dizziness, no diaphoresis, currently on oxygen, no nausea, no vomiting, no fever, no chills. Patient was admitted for further evaluation and medical management. Past Medical History COPD Past Surgical History Denies all surgeries Family History Reviewed, noncontributory to the management of this case. Past Social History Patient lives at home, smokes cigarettes less than 1 pack per day, denies alcohol or illicit drugs abuse. Review of Systems Constitutional: Yes: Weakness; No: Fever, Chills, Sweats, Malaise, Other Eyes: No: Pain, Vision change, Conjunctivae inflammation, Eyelid inflammation, Other, Redness ENT: No: Ear pain, Ear discharge, Nose pain, Nose discharge, Nose congestion, Mouth pain, Mouth swelling, Throat pain, Throat swelling, Other Respiratory: Cough, Shortness of breath, SOB with excertion, Wheezing; No: Dry, Hemoptysis, Pleuritic Pain, Sputum, Wheezing, Other Cardiovascular: No: Chest Pain, Palpitations, Orthopnea, Paroxysmal Noc. Dyspnea, Edema, Lt Headedness, Other Gastrointestinal: No: Nausea, Vomiting, Abdominal Pain, Diarrhea, Constipation, Melena, Hematochezia, Other Genitourinary: No Dysuria, No Frequency, No Incontinence, No Hematuria, No Retention, No Other Musculoskeletal: No: other, neck pain, shoulder pain, arm pain, back pain, hand pain, leg pain, foot pain Skin: No: Rash, Lesions, Jaundice, Bruising, Other Neurological: No: Weakness, Numbness, Incoordination, Change in speech, Confusion, Seizures, Other Allergies: Coded Allergies: Amoxicillin (Verified Allergy, Unknown, 12/22/21) Clavulanic Acid (Verified Allergy, Unknown, 12/22/21) Exam Vital Signs Vital Signs Date Time Temp Pulse Resp B/P (MAP) Pulse Ox O2 Delivery O2 Flow Rate FiO2 10/07/24 01:34 79 18 90 Room Air* 0 21 10/07/24 01:33 98.1 113/65 (81) 98.1 General Appearance: Alert, Oriented X3, Cooperative, No acute distress HEENT: Atraumatic, PERRLA, EOMI, Mucous membr. moist/pink Respiratory: Normal air movement, Other (Wheezing) Cardiovascular: Regular rate, Normal S1, Normal S2, No murmurs Abdominal: Normal bowel sounds, Soft, No tenderness, No hepatospenomegaly, No masses Extremities: No clubbing, No cyanosis, No edema, Normal pulses, No tenderness/swelling Skin: No rashes, No breakdown, No significant lesion Neuro: Normal speech, Normal tone, Sensation intact, Cranial nerves 3-12 NL, Reflexes 2+, Other (Generalized weakness) Psych/Mental Status: Mental status NL, Mood NL Labs/Xrays Labs Test 10/07/24 01:30 10/06/24 21:38 Range/Units Troponin I High Sensitivity 56 *H </=54 ng/L White Blood Count 9.1 4.4-10.8 10^3/uL Red Blood Count 5.32 4.5-5.90 10^6/uL Hemoglobin 16.5 13.5-17.5 g/dL Hematocrit 49.0 41.0-53.0 % Mean Corpuscular Volume 92.1 80.0-100.0 fL Mean Corpuscular Hemoglobin 31.1 28.0-32.0 pg Mean Corpuscular Hemoglobin Concent 33.7 32.0-36.0 g/dL Red Cell Distribution Width 13.7 11.8-14.3 % Platelet Count 234 140-450 10^3/uL Mean Platelet Volume 8.3 6.9-10.8 fL Neutrophils (%) (Auto) 54.7 37.0-80.0 % Lymphocytes (%) (Auto) 31.2 10.0-50.0 % Monocytes (%) (Auto) 10.8 0.0-12.0 % Eosinophils (%) (Auto) 2.7 0.0-7.0 % Basophils (%) (Auto) 0.6 0.0-2.0 % Neutrophils # (Auto) 5.0 1.6-8.6 10 ^3/uL Lymphocytes # (Auto) 2.8 0.4-5.4 10 ^3/uL Monocytes # (Auto) 1.0 0-1.3 10 ^3/uL Eosinophils # (Auto) 0.2 0-0.8 10 ^3/uL Basophils # (Auto) 0.1 0-0.2 10 ^3/uL Nucleated Red Blood Cells 0.0 % Sodium Level 142 136-145 mmol/L Potassium Level 3.6 3.5-5.1 mmol/L Chloride Level 106 98-107 mmol/L Carbon Dioxide Level 28 20-31 mmol/L Anion Gap 8 5-15 Blood Urea Nitrogen 27 H 9-23 mg/dL Creatinine 1.13 0.700-1.30 mg/dL Glomerular Filtration Rate Calc 66 >90 mL/min BUN/Creatinine Ratio 23.9 H 10.0-20.0 Serum Glucose 132 H 74-106 mg/dL Calcium Level 9.8 8.7-10.4 mg/dL Total Bilirubin 0.6 0.2-1.0 mg/dL Aspartate Amino Transferase (AST) 21 13-40 U/L Alanine Aminotransferase (ALT) 21 7-40 U/L Alkaline Phosphatase 63 46-116 U/L B-Type Natriuretic Peptide 107.81 0-100 pg/mL Total Protein 6.9 5.7-8.2 g/dL Albumin 4.3 3.2-4.8 g/dL PATIENT: PAMELA PARKER JRACCT: [id number] UNIT: [id number] : 1945 LOC: ER ROOM / BED: / AGE / SEX: 78 / M ADM STATUS: REG ER SERVICE 26 ORDERING PHYSICIAN: BOSTON BUNN MD PROCEDURE(s): CXRP - CHEST PORTABLE REASON: SOB ORDER NUMBER(s): [id number], ACCESSION NUMBER(s): [id number] CHEST RADIOGRAPH Indication: SOB Technique: Single frontal view of the chest was obtained COMPARISON: None FINDINGS: Lines and Tubes: None Lungs: Clear Pleura: No effusion. No pneumothorax. Cardiomediastinal contours: Unremarkable Bones: Unremarkable IMPRESSION: 1. No acute disease. Assessment/Plan Assessment/Plan COPD with acute exacerbation Elevated troponin Acute respiratory failure with hypoxia Generalized weakness Plan 1. Admit to telemetry unit 2. Breathing treatment 3. Pain control management 4. Management of fluids and electrolytes 5. Consultation for pulmonology 6. Diagnostic tests chest x-ray 7. DVT prophylaxis-on aspirin 8. Repeat labs CBC, CMP in a.m. 9. Continue with current medical management 10. Treatment plan discussed with patient and RN. Patient verbalized understanding. Plan discussed with: Patient, Other (RN) My Orders Orders - JOSIANE PRESLEY DNP Procedure Category Date Status Time Complete Blood Count LAB 10/07/24 Transmitted 04:00 Comprehensive LAB 10/07/24 Transmitted Metabolic Panel 04:00 Aspirin Tablet PHA 10/07/24 Transmitted 10:00 Albuterol Medneb PHA 10/07/24 Transmitted (Ventolin Medneb) 03:15 Ipratropium Medneb PHA 10/07/24 Transmitted (Atrovent Medneb) 03:15 Famotidine Injection PHA 10/07/24 Transmitted (Pepcid Injection) 10:00 Methylprednisolone PHA 10/07/24 Transmitted Sod Succ (Solu Medrol 10:00 Admit ADMIT 10/07/24 Transmitted 03:04 Allergies CHANTAL 10/07/24 Transmitted 03:04 Code Status CODE 10/07/24 Transmitted 03:04 Sodium Chloride Lock PHA 10/07/24 Transmitted (Saline Lock Ns) 06:00 Oxygen Per Hour RT 10/07/24 Transmitted 03:04 Hydrocodone-Acet PHA 10/07/24 Transmitted 5/325mg Tab (Bylas 03:15 Ondansetron Hcl PHA 10/07/24 Transmitted (Zofran) 03:15 Docusate Sodium PHA 10/07/24 Transmitted Capsule (Colace 03:15 Fall Risk Precautions CHANTAL 10/07/[address] 03:04 Complete Blood Count LAB 10/08/24 Verified 04:00 Comprehensive LAB 10/08/24 Verified Metabolic Panel 04:00 Cardiac DIET 10/07/24 Transmitted Diet-2gna,Lofat,Lochol Breakfast Condition: Serious CHANTAL 10/07/24 Transmitted 03:04 Acetaminophen Tablet PHA 10/07/24 Transmitted (Tylenol Tablet) 03:15 Sequential CHANTAL 10/07/24 Transmitted Compression Device Nitroglycerin PHA 10/07/24 Transmitted Sublingual (Ntrostat 03:15 Morphine Sulfate PHA 10/07/24 Transmitted Injection 03:15 Notify Md Of Changes [facility] 10/07/24 Transmitted From Base 03:04 Psych Rn For [facility] 10/07/24 Transmitted 24 Hours 03:04 Emergency Dysrhythmia [facility] 10/07/24 Transmitted Protocol 03:04 Rhythm Strips Once [facility] 10/07/24 Transmitted Every Shift 03:04 Oxygen By Nasal RT 10/07/24 Transmitted Cannula 03:04 *Consult CONS 10/07/24 Transmitted / 03:04 Problem List: (1) COPD with acute exacerbation (2) Elevated troponin (3) Respiratory failure with hypoxia (4) Generalized weakness Date of Service: Oct 07, 2024 Billing Provider: JOSIANE PRESLEY DNP Common Visit Codes: [id number] INP/OBS CARE (HIGH) JOSIANE PRESLEY DNP Oct 07, 2024 03:24
[2024-10-07] MEDS: SODIUM CHLOR 0.9% PF (SALINE LOCK) 10ML VIAL/SYR IV SCH (06:09)
[2024-10-07 06:39] LABS: Basophils # (auto) 0 10 ^3/uL (0-0.2); Basophils % (auto) 0.2 % (0.0-2.0); Eosinophils # (auto) 0 10 ^3/uL (0-0.8); Eosinophils % (auto) 0.1 % (0.0-7.0); Hematocrit 44.8 % (41.0-53.0); Hemoglobin 15.6 g/dL (13.5-17.5); Lymphocytes % (auto) 15.1 % (10.0-50.0); Mean Corpuscular Hemoglobin 31.7 pg (28.0-32.0); Mean Corpuscular Hgb Conc. 34.9 g/dL (32.0-36.0); Mean Corpuscular Volume 90.9 fL (80.0-100.0); Monocytes # (auto) 0.1 10 ^3/uL (0-1.3); Monocytes % (auto) 2.3 % (0.0-12.0); Neutrophils # (auto) 5.3 10 ^3/uL (1.6-8.6); Neutrophils % (auto) 82.3 % (37.0-80.0); Nucleated Red Blood Cells % 0.1 %; Platelet Count (auto) 206 10^3/uL (140-450); Red Blood Cells 4.92 10^6/uL (4.5-5.90); Red Cell Distribution Width 13.1 % (11.8-14.3); White Blood Cell 6.4 10^3/uL (4.4-10.8)
[2024-10-07 06:44] LABS: Alanine Aminotransferase 14 U/L (7-40); Albumin 3.9 g/dL (3.2-4.8); Alkaline Phosphatase 53 U/L (46-116); Anion Gap 7 (5-15); Aspartate Aminotransferase 17 U/L (13-40); BUN/Creatinine Ratio 21.2 (10.0-20.0); Bilirubin, Total 0.8 mg/dL (0.2-1.0); Blood Urea Nitrogen 21 mg/dL (9-23); Calcium 9.5 mg/dL (8.7-10.4); Carbon Dioxide 27 mmol/L (20-31); Chloride 105 mmol/L (98-107); Sodium 139 mmol/L (136-145); Total Protein 6.4 g/dL (5.7-8.2)
[2024-10-07 07:04] LABS: Glucose 153 mg/dL (74-106); Potassium 3.4 mmol/L (3.5-5.1)
[2024-10-07 10:45] LABS: INR 1.08 (0.9-1.15); Prothrombin Time 11.4 sec (9.3-11.8)
[2024-10-07] MEDS: methylPREDNISolone SOD SUCC 40 MG/ML VL IV SCH ×2 (11:32→22:55)
[2024-10-07] MEDS: FAMOTIDINE (10MG/ML) 2ML VL IV SCH (11:32)
[2024-10-07] MEDS: POTASSIUM EFFERVESENT TAB 25 MEQ PO ONE (11:32)
[2024-10-07] MEDS: ASPirin 81 mg TAB PO SCH (11:32)
--- NOTE | 2024-10-07 11:49 | DVHPNRES ---
Progress Note Date Seen: Oct 07, 2024 Resident Creating Document: NICOLE FINNEY RESIDENT Medical Necessity Reason Pt with a Central, PICC or Fol: No Subjective Review of Systems The patient is an 78-year-old male with a past medical history of chronic obstructive pulmonary disease (COPD), heart failure, and a significant smoking history who presented to the Emergency Department with complaints of progressively worsening shortness of breath and cough. Symptoms began worsening on Tuesday and are most pronounced with physical activity. The patient denies swelling in the lower extremities, chest pain, dizziness, or fever. He is currently on room air and receiving breathing treatments with reported improvement. He is tolerating food without difficulty. A chest X-ray demonstrated hyperinflation of the lungs, consistent with COPD. Echocardiogram results are still pending. Laboratory data were notable for stable kidney function and elevated BNP, correlating with the patients history of heart failure. The patient has a long-standing smoking history, reporting half a pack per day for the past 60 years. At present, he remains stable without acute symptoms. Past Medical History: Chronic obstructive pulmonary disease (COPD) Heart failure History of smoking (60 pack-years) Past Surgical History: No significant surgical history reported. Family History: Non-contributory to the management of this case. Social History: Patient lives at home. Smokes half a pack of cigarettes daily for the last 60 years. Denies alcohol or illicit drug use. Patient reports: Feels better Changes from previous H/P or p: Changes Objective vital signs Vital Sign Date Time Temp Pulse Resp B/P (MAP) Pulse Ox O2 Delivery O2 Flow Rate FiO2 10/07/24 10:57 86 10/07/24 06:49 97 Nasal Cannula* 3 32 10/07/24 06:49 18 10/07/24 05:08 91/47 (62) 10/07/24 01:33 98.1 98.1 medications Current Medications Medications Dose Ordered Sig/Gloria Route Start Time Stop Time Status Last Admin Dose Admin Aspirin 81 mg DAILY PO 10/07/24 10:00 10/07/24 11:32 81 MG Albuterol 2.5 mg Q4HPRN PRN NEB 10/07/24 03:15 Ipratropium [place] 0.5 mg Q4HPRN PRN NEB 10/07/24 03:15 Famotidine 20 mg DAILY IV 10/07/24 10:00 10/07/24 11:32 20 MG Methylprednisolone Sodium Succinate 40 mg DAILY IV 10/07/24 10:00 10/07/24 11:32 40 MG Sodium Chloride 10 ml Q8HR IV 10/07/24 06:00 10/07/24 06:09 10 ML Acetaminophen/ Hydrocodone Bitart 1 tab Q4HP PRN PO 10/07/24 03:15 Ondansetron HCl 4 mg Q4HP PRN IV 10/07/24 03:15 Docusate Sodium 100 mg BIDPRN PRN PO 10/07/24 03:15 Acetaminophen 650 mg Q6HP PRN PO 10/07/24 03:15 Nitroglycerin 0.4 mg Q5MINP PRN SL 10/07/24 03:15 Morphine Sulfate 2 mg Q30M PRN IV 10/07/24 03:15 Examination Examination General Appearance: Alert, Oriented X3, Cooperative, No acute distress currently on room air Respiratory: Clear to auscultation, no wheezing, Normal air movement Cardiovascular: Regular rate, Normal S1, Normal S2 Abdominal: Normal bowel sounds Extremities: No cyanosis, No edema, Normal pulses, No tenderness/swelling Skin: No rashes, No breakdown Neuro: Normal gait, Normal speech, Strength at 5/5 X4 ext, Normal tone, Sensation intact, Cranial nerves 3-12 NL, Reflexes 2+ Psych/Mental Status: Mental status NL, Mood NL laboratory and microbiology Laboratory Tests 10/07/24 06:04 Test 10/07/24 06:04 Range/Units Serum Glucose 153 H 74-106 mg/dL Problem List/Assessment/Plan Problem List/Assessment/Plan #Acute hypoxemic respiratory failure likely due to COPD exacerbation #Heart failure reduced ejection fraction 35%( taken on May) -med neb -currently on room air -methylprednisolone 40 mg IV -COVID-19 and influenza test still pending -pulmonology consult pending #Elevated troponin likely due to NSTEMI type 2 -treat underlying conditions #Generalized weakness likely due to electrolyte imbalances #Hypokalemia Potassium effervescent p.o. 25 mEq #History of essential hypertension -monitor Case discussed with Dr. Balderrama Goals of care discussed with the patient for 29 minutes Code status: Full code Plan discussed with: Patient, Spouse My Orders My Orders Orders - NICOLE FINNEY RESIDENT Procedure Category Date Status Time Urinalysis LAB 10/07/24 Uncollected 09:43 Echo 2d Mode Cardiac US 10/07/24 Logged DOP 09:43 Vitamin B12 LAB 10/07/24 In Process 09:43 Folate (Folic Acid) LAB 10/07/24 In Process 09:43 Covid19 Antigen Danika LAB 10/07/24 Logged Rapid Influenza A&B LAB 10/07/24 Logged 09:48 Drug Screen LAB 10/07/24 Logged 09:48 Date of Service: Oct 07, 2024 Billing Provider: SHAWNA BALDERRAMA MD Common Visit Codes: [id number] INP/OBS CARE(HIGH) Secondary Visit Codes: [id number] CARE PLAN 30 MINUTES NICOLE FINNEY RESIDENT Oct 07, 2024 11:49 SHAWNA BALDERRAMA MD Oct 09, 2024 20:38
[2024-10-07 20:05] LABS: COVID19 ANTIGEN SOFIA FIA NEGATIVE (NEGATIVE); Rapid Influenza A Negative (Negative); Rapid Influenza B Negative (Negative)
[2024-10-07] MEDS ORDERED: CARV3.1240 PO (23:27)
--- NOTE | 2024-10-07 23:37 | DVHINCON2 ---
Date of service: Oct 07, 2024 Referring Physician Josr Bliss DNP Reason for Consultation Acute hypoxic respiratory failure, COPD exacerbation History of Present Illness An 78-year-old man with past medical history of COPD who presented to ED on 10/06/24 with complaint of shortness of breath. Patient reported symptoms progressively got worse with cough, hypoxia, SOB at rest, wheezing, prompting this visit. Workup in ED notable for WBC 9.1, platelets 234, sodium 142, potassium 3.6, BUN 27, creatinine 1.13, glucose 132, troponin 56, BNP 107.81. Vitals were BP 113/65, heart rate 78, temperature 98.1 F, O2 saturation 90% on oxygen. Chest x-ray showed no acute cardiopulmonary disease. Patient was admitted for further care and pulmonary consultation is requested for evaluation and management of acute hypoxic respiratory failure and COPD exacerbation, Review of Systems: 14-point review of systems negative unless otherwise noted above. Past Medical History: COPD Past Surgical History: Denies. Medications: Reviewed. Allergies: Amoxicillin Clavulanic acid Family History: Diabetes mellitus. Social History: Current smoker; smokes cigarettes less than 1 pack per day, No alcohol or illicit drug use. Family History: Diabetes mellitus MATERNAL GRANDMOTHER, Onset:Unknown Allergies: Coded Allergies: Amoxicillin (Verified Allergy, Unknown, 12/22/21) Clavulanic Acid (Verified Allergy, Unknown, 12/22/21) Home Meds Reported Medications Carvedilol (Carvedilol) 3.125 Mg Tab, 1 TAB PO BID 10/07/24 Prasugrel Hydrochloride (Effient) 10 Mg Tab, 10 MG PO for BLOOD THINNER, TAB TAKE EVERY OTHER DAY. 11/09/18 Hctz (Hydrochlorothiazide) 25 Mg Tab, 25 MG PO DAILY for EDEMA, TAB 11/09/18 Current Medications Current Medications Medications (Trade) Dose Ordered Sig/Gloria Route PRN Reason Start Time Stop Time Status Last Admin Aspirin 81 mg DAILY PO 10/07/24 10:00 10/07/24 11:32 Albuterol (Ventolin Medneb) 2.5 mg Q4HPRN PRN NEB SHORTNESS OF BREATH 10/07/24 03:15 Ipratropium [place] (Atrovent Medneb) 0.5 mg Q4HPRN PRN NEB SHORTNESS OF BREATH 10/07/24 03:15 Famotidine (Pepcid Injection) 20 mg DAILY IV 10/07/24 10:00 10/07/24 11:32 Methylprednisolone Sodium Succinate (Solu Medrol) 40 mg DAILY IV 10/07/24 10:00 10/07/24 14:18 DC 10/07/24 11:32 Sodium Chloride (Saline Lock Ns) 10 ml Q8HR IV 10/07/24 06:00 10/07/24 22:55 Acetaminophen/ Hydrocodone Bitart ([place] 5/325MG Tab) 1 tab Q4HP PRN PO MODERATE PAIN (4-6 PAIN SCALE) 10/07/24 03:15 Ondansetron HCl (Zofran) 4 mg Q4HP PRN IV NAUSEA / VOMITING 10/07/24 03:15 Docusate Sodium (Colace Capsule) 100 mg BIDPRN PRN PO FOR CONSTIPATION 10/07/24 03:15 Acetaminophen (Tylenol Tablet) 650 mg Q6HP PRN PO PAIN SCALE 1-3 OR TEMP>100.4 10/07/24 03:15 Nitroglycerin (Ntrostat Sublingual) 0.4 mg Q5MINP PRN SL FOR CHEST PAIN 10/07/24 03:15 Morphine Sulfate 2 mg Q30M PRN IV FOR CHEST PAIN 10/07/24 03:15 Methylprednisolone Sodium Succinate (Solu Medrol) 40 mg BID IV 10/07/24 22:00 10/07/24 22:55 Vital Signs Vital Signs Date Time Temp Pulse Resp B/P (MAP) Pulse Ox O2 Delivery O2 Flow Rate FiO2 10/07/24 22:00 97.6 99 18 130/77 (94) 91 97.6 10/07/24 19:30 Nasal Cannula* 2 28 Physical Exam Gen.: Patient lying in bed in no apparent distress. Breathing on room air. Head: Normocephalic, atraumatic. Eyes: EOMI/PERRLA. Ears: Normal hearing. Normal anatomy. Neck/trachea: Trachea midline, supple. Nose: Normal external anatomy. Mouth: Moist mucous membranes. Chest: Decreased air entry bilaterally. No wheezing or rhonchi. Cardiovascular: Positive S1, positive S2. Regular rate and rhythm. Abdomen: Positive bowel sounds in all 4 quadrants. Soft, non-tender, non- distended. : Deferred. Rectal: Deferred. Skin: Warm, dry. Intact. Extremities: 2+ radial pulses bilaterally. No lower extremity edema. Neuro: Awake, alert, oriented x3. No gross motor or sensory deficits. Cranial nerves II through XII intact. Gait not assessed. Labs/Diagnostic Data Labs Test 10/07/24 19:05 10/07/24 06:04 10/07/24 01:30 10/06/24 21:38 Range/Units Influenza Type A Antigen Negative Negative Influenza Type B Antigen Negative Negative SARS-CoV-2 Antigen (Rapid) Negative NEGATIVE White Blood Count 6.4 # 4.4-10.8 10^3/uL Red Blood Count 4.92 4.5-5.90 10^6/uL Hemoglobin 15.6 13.5-17.5 g/dL Hematocrit 44.8 41.0-53.0 % Mean Corpuscular Volume 90.9 80.0-100.0 fL Mean Corpuscular Hemoglobin 31.7 28.0-32.0 pg Mean Corpuscular Hemoglobin Concent 34.9 32.0-36.0 g/dL Red Cell Distribution Width 13.1 11.8-14.3 % Platelet Count 206 140-450 10^3/uL Mean Platelet Volume 8.4 6.9-10.8 fL Neutrophils (%) (Auto) 82.3 H 37.0-80.0 % Lymphocytes (%) (Auto) 15.1 10.0-50.0 % Monocytes (%) (Auto) 2.3 0.0-12.0 % Eosinophils (%) (Auto) 0.1 0.0-7.0 % Basophils (%) (Auto) 0.2 0.0-2.0 % Neutrophils # (Auto) 5.3 1.6-8.6 10 ^3/uL Lymphocytes # (Auto) 1.0 0.4-5.4 10 ^3/uL Monocytes # (Auto) 0.1 0-1.3 10 ^3/uL Eosinophils # (Auto) 0 0-0.8 10 ^3/uL Basophils # (Auto) 0 0-0.2 10 ^3/uL Nucleated Red Blood Cells 0.1 % Prothrombin Time 11.4 9.3-11.8 sec Prothrombin Time INR 1.08 0.9-1.15 Sodium Level 139 136-145 mmol/L Potassium Level 3.4 L 3.5-5.1 mmol/L Chloride Level 105 98-107 mmol/L Carbon Dioxide Level 27 20-31 mmol/L Anion Gap 7 5-15 Blood Urea Nitrogen 21 9-23 mg/dL Creatinine 0.99 0.700-1.30 mg/dL Glomerular Filtration Rate Calc 77 >90 mL/min BUN/Creatinine Ratio 21.2 H 10.0-20.0 Serum Glucose 153 H 74-106 mg/dL Calcium Level 9.5 8.7-10.4 mg/dL Magnesium Level 1.8 1.6-2.6 mg/dL Total Bilirubin 0.8 0.2-1.0 mg/dL Aspartate Amino Transferase (AST) 17 13-40 U/L Alanine Aminotransferase (ALT) 14 7-40 U/L Alkaline Phosphatase 53 46-116 U/L Total Protein 6.4 5.7-8.2 g/dL Albumin 3.9 3.2-4.8 g/dL Thyroid Stimulating Hormone (TSH) 0.75 0.55-4.78 uIU/mL Troponin I High Sensitivity 56 *H </=54 ng/L B-Type Natriuretic Peptide 107.81 0-100 pg/mL Assessment Impression: Acute hypoxic respiratory failure COPD exacerbation Elevated troponin Hypokalemia Nicotine dependence Cough Plan: Supplemental oxygen PRN Titrate to keep O2 sats above 92%. Continue bronchodilators. Steroids Continue antibiotics Monitor renal function. Monitor electrolytes. Supplement as necessary. Potassium supplementation Monitor ins and outs. GI prophylaxis - Pepcid DVT prophylaxis. Prognosis: Poor given patient's multiple co-morbidities. Rest of plan per hospitalist and other consultants. Thank you Josr Bliss DNP, for allowing me to participate in this patient's care. Further recommendations will depend on the patient's clinical course. Please do not hesitate to contact me if you have any questions or concerns. This medical document was created using an electronic medical record system with [employer] dictation system. Although these documentations are being carefully reviewed, there may still be some phonetic and typographical changes. The errors are purely typographical, due to imperfection on the software program, and do not reflect any compromise in the patient's medical care. Plan discussed with: Patient, Other (RN Jena/JEAN Bliss/) ZENAIDA VOGEL MD Oct 07, 2024 23:37
[2024-10-08] VITALS (13 sets, daily range): BP systolic 96–129; BP diastolic 47–72; PULSE 56–97; RESP 16–19; TEMP 97.1–98.5; O2SAT 88–100
[2024-10-08 04:27] LABS: Urine Bacteria None Seen /hpf (None Seen); Urine WBC None Seen /hpf (0 - 3)
[2024-10-08 04:40] LABS: Urine Blood Negative /uL (Negative); Urine Clarity Clear (Clear); Urine Color Yellow (Yellow); Urine Protein, UAD Negative (Negative); Urine Specific Gravity 1.031 (1.001-1.035); Urine Squamous Epithelial Cell None Seen /hpf (<5); Urine Urobilinogen Normal (Negative)
[2024-10-08 05:19] LABS: Amphetamine Screen, Urine Neg (NEGATIVE); Barbiturate Scree,Urine Neg (NEGATIVE); Benzodiazephine Screen, Urine Neg (NEGATIVE); Cannabinoid Screen, Urine Neg (NEGATIVE); Cocaine Screen, Urine Neg (NEGATIVE); Opiate Scree,Urine Neg (NEGATIVE); Phencyclidine Screen, Urine Neg (NEGATIVE)
[2024-10-08 06:53] LABS: Basophils # (auto) 0 10 ^3/uL (0-0.2); Basophils % (auto) 0.1 % (0.0-2.0); Eosinophils # (auto) 0 10 ^3/uL (0-0.8); Hematocrit 44.8 % (41.0-53.0); Hemoglobin 15.1 g/dL (13.5-17.5); Lymphocytes # (auto) 1.1 10 ^3/uL (0.4-5.4); Lymphocytes % (auto) 9.3 % (10.0-50.0); Mean Corpuscular Hemoglobin 30.9 pg (28.0-32.0); Mean Corpuscular Hgb Conc. 33.6 g/dL (32.0-36.0); Mean Corpuscular Volume 91.8 fL (80.0-100.0); Monocytes # (auto) 0.4 10 ^3/uL (0-1.3); Monocytes % (auto) 3.3 % (0.0-12.0); Neutrophils # (auto) 10.8 10 ^3/uL (1.6-8.6); Neutrophils % (auto) 87.3 % (37.0-80.0); Nucleated Red Blood Cells % 0.1 %; Platelet Count (auto) 214 10^3/uL (140-450); Red Blood Cells 4.88 10^6/uL (4.5-5.90); Red Cell Distribution Width 13.5 % (11.8-14.3); White Blood Cell 12.4 10^3/uL (4.4-10.8)
[2024-10-08 07:08] LABS: Alanine Aminotransferase 13 U/L (7-40); Albumin 3.8 g/dL (3.2-4.8); Alkaline Phosphatase 48 U/L (46-116); Anion Gap 8 (5-15); Aspartate Aminotransferase 13 U/L (13-40); BUN/Creatinine Ratio 22.8 (10.0-20.0); Calcium 9.9 mg/dL (8.7-10.4); Carbon Dioxide 29 mmol/L (20-31); Chloride 104 mmol/L (98-107); Potassium 4.3 mmol/L (3.5-5.1); Sodium 141 mmol/L (136-145)
[2024-10-08 07:09] LABS: Bilirubin, Total 0.6 mg/dL (0.2-1.0); Total Protein 6.3 g/dL (5.7-8.2)
[2024-10-08 07:13] LABS: Blood Urea Nitrogen 26 mg/dL (9-23); Glucose 164 mg/dL (74-106)
[2024-10-08 10:29] LABS: Folate (Folic Acid) 20.33 ng/mL (>5.38)
[2024-10-08] MEDS: ALBUTEROL SULF 2.5 MG/0.5ML(0.5%) NEB SOLN NEB PRN (11:44)
[2024-10-08] MEDS: IPRATROPIUM BROM 0.5 MG/2.5ML INH SOL NEB PRN (11:44)
--- NOTE | 2024-10-08 13:25 | DVHPN2 ---
Progress Note - Dictate Date Seen: Oct 08, 2024 Medical Necessity Reason Pt with a Central, PICC or Fol: No Subjective PT WITH PROGRESSIVE SX SOB NEGRETE HYPOXIA ENDSTAGE COPD TOBACCO USE CACHEXIA [facility] ON 2021 1. Left main calcified, no flow restrictive lesion. Left anterior descending artery, mild intimal irregularity without any flow restrictive lesion. 2. Circumflex, mild intimal irregularity without any flow restrictive lesion. 3. Right coronary artery, mild intimal irregularity without any flow restrictive lesion. 4. Left ventricular function shows global hypokinesis with an estimated EF around 30-35% with an LVEDD EF of 10 mmHg with no gradient across the aortic valve with aortic valve pressure of 110. 5. Left and right iliac angiography shows moderate diffuse disease with heavy calcification while there was no flow restrictive lesion noted. At this time, conservative medical management should be implemented for the lower extremity, aggressive risk modification and again encouraged the patient to discontinue smoking. At this time, no catheter-based or surgical intervention is warranted for both coronary or peripheral anatomy. HFrEF CHRONIC CXR EMPHYSEMA vital signs Vital Sign Date Time Temp Pulse Resp B/P (MAP) Pulse Ox O2 Delivery O2 Flow Rate FiO2 10/08/24 12:50 97.6 62 17 129/65 (86) 94 97.6 10/08/24 11:44 Room Air* 0 21 Total Intake and Output 10/07/24 10/07/24 10/08/24 15:00 23:00 07:00 Intake Total 300 ml 130 ml Output Total 600 ml Balance -300 ml 130 ml medications Current Medications Medications Dose Ordered Sig/Gloria Route Start Time Stop Time Status Last Admin Dose Admin Aspirin 81 mg DAILY PO 10/07/24 10:00 10/08/24 10:48 81 MG Albuterol 2.5 mg Q4HPRN PRN NEB 10/07/24 03:15 10/08/24 11:44 2.5 MG Ipratropium [place] 0.5 mg Q4HPRN PRN NEB 10/07/24 03:15 10/08/24 11:44 0.5 MG Famotidine 20 mg DAILY IV 10/07/24 10:00 10/08/24 10:48 20 MG Sodium Chloride 10 ml Q8HR IV 10/07/24 06:00 10/08/24 05:31 10 ML Acetaminophen/ Hydrocodone Bitart 1 tab Q4HP PRN PO 10/07/24 03:15 Ondansetron HCl 4 mg Q4HP PRN IV 10/07/24 03:15 Docusate Sodium 100 mg BIDPRN PRN PO 10/07/24 03:15 Acetaminophen 650 mg Q6HP PRN PO 10/07/24 03:15 Nitroglycerin 0.4 mg Q5MINP PRN SL 10/07/24 03:15 Morphine Sulfate 2 mg Q30M PRN IV 10/07/24 03:15 Methylprednisolone Sodium Succinate 40 mg BID IV 10/07/24 22:00 10/08/24 10:48 40 MG laboratory and microbiology Laboratory Tests 10/08/24 05:35 Test 10/08/24 05:35 Range/Units Serum Glucose 164 H 74-106 mg/dL Problem List PROGRESSIVE SX SOB NEGRETE HYPOXIA ENDSTAGE COPD TOBACCO USE CACHEXIA [facility] ON 2021 1. Left main calcified, no flow restrictive lesion. Left anterior descending artery, mild intimal irregularity without any flow restrictive lesion. 2. Circumflex, mild intimal irregularity without any flow restrictive lesion. 3. Right coronary artery, mild intimal irregularity without any flow restrictive lesion. 4. Left ventricular function shows global hypokinesis with an estimated EF around 30-35% with an LVEDD EF of 10 mmHg with no gradient across the aortic valve with aortic valve pressure of 110. 5. Left and right iliac angiography shows moderate diffuse disease with heavy calcification while there was no flow restrictive lesion noted. At this time, conservative medical management should be implemented for the lower extremity, aggressive risk modification and again encouraged the patient to discontinue smoking. At this time, no catheter-based or surgical intervention is warranted for both coronary or peripheral anatomy. HFrEF CHRONIC CXR EMPHYSEMA Assessment/Plan NO EVIDENCE FOR HF ACUTE EXACERBATION OF COPD ABX INHALER Plan discussed with: Patient Critical Care Time(min): 34 MI ORTEGA MD Oct 08, 2024 13:25
--- NOTE | 2024-10-08 15:25 | ECG ---
[facility] Test Date: 2024-10-06 Test Time: 21:31:06 Pat Name: PAMELA PARKER Department: ER Room: 0215T A Gender: M Customer Support Engineer: DONNA : 1945 Requested By: BOSTON BUNN Order Number: [id number] Reading MD: Micah Sin Measurements Intervals [place] Rate: 96 P: 79 MT: 156 QRS: 83 QRSD: 87 T: 6 QT: 349 QTc: 441 Interpretive Statements Sinus rhythm Multiform ventricular premature complexes Right atrial enlargement Borderline right axis deviation Minimal ST depression, inferior leads Electronically Signed On 10-09-2024 13:05:25 PST by Micah Sin Please click the below link to view image of tracing.
--- NOTE | 2024-10-08 23:01 | DVHPN2 ---
Progress Note - Dictate Date Seen: Oct 08, 2024 Medical Necessity Reason Pt with a Central, PICC or Fol: No Subjective Patient seen and examined at bedside. Remains on supplemental oxygen Overnight events reviewed. vital signs Vital Sign Date Time Temp Pulse Resp B/P (MAP) Pulse Ox O2 Delivery O2 Flow Rate FiO2 10/08/24 20:09 70 16 100 10/08/24 20:00 Nasal Cannula* 2 28 10/08/24 17:24 97.1 126/55 (78) 97.1 Total Intake and Output 10/07/24 10/07/24 10/08/24 15:00 23:00 07:00 Intake Total 300 ml 130 ml Output Total 600 ml Balance -300 ml 130 ml medications Current Medications Medications Dose Ordered Sig/Gloria Route Start Time Stop Time Status Last Admin Dose Admin Aspirin 81 mg DAILY PO 10/07/24 10:00 10/08/24 10:48 81 MG Albuterol 2.5 mg Q4HPRN PRN NEB 10/07/24 03:15 10/08/24 19:40 2.5 MG Ipratropium [place] 0.5 mg Q4HPRN PRN NEB 10/07/24 03:15 10/08/24 19:40 0.5 MG Famotidine 20 mg DAILY IV 10/07/24 10:00 10/08/24 10:48 20 MG Sodium Chloride 10 ml Q8HR IV 10/07/24 06:00 10/08/24 21:20 10 ML Acetaminophen/ Hydrocodone Bitart 1 tab Q4HP PRN PO 10/07/24 03:15 Ondansetron HCl 4 mg Q4HP PRN IV 10/07/24 03:15 Docusate Sodium 100 mg BIDPRN PRN PO 10/07/24 03:15 Acetaminophen 650 mg Q6HP PRN PO 10/07/24 03:15 Nitroglycerin 0.4 mg Q5MINP PRN SL 10/07/24 03:15 Morphine Sulfate 2 mg Q30M PRN IV 10/07/24 03:15 Methylprednisolone Sodium Succinate 40 mg BID IV 10/07/24 22:00 10/08/24 21:20 40 MG Ceftriaxone Sodium 50 ml @ 100 mls/hr DAILY@09 IV 10/09/24 09:00 objective Gen.: Patient lying in bed in no apparent distress. On supplemental oxygen. Head: Normocephalic, atraumatic. Eyes: EOMI/PERRLA. Ears: Normal hearing. Normal anatomy. Neck/trachea: Trachea midline, supple. Nose: Normal external anatomy. Mouth: Moist mucous membranes. Chest: Decreased air entry bilaterally. No wheezing or rhonchi. Cardiovascular: Positive S1, positive S2. Regular rate and rhythm. Abdomen: Positive bowel sounds in all 4 quadrants. Soft, non-tender, non- distended. : Deferred. Rectal: Deferred. Skin: Warm, dry. Intact. Extremities: 2+ radial pulses bilaterally. No lower extremity edema. Neuro: Awake, alert, oriented x3. No gross motor or sensory deficits. Cranial nerves II through XII intact. Gait not assessed. laboratory and microbiology Laboratory Tests 10/08/24 05:35 Test 10/08/24 05:35 Range/Units Serum Glucose 164 H 74-106 mg/dL Assessment/Plan Impression: Acute hypoxic respiratory failure COPD exacerbation Elevated troponin Hypokalemia Nicotine dependence Cough Events: Remains on supplemental oxygen, 2 LPM NC Taper O2 as tolerated Continue bronchodilators Continue steroids Continue antibiotics Labs and imaging reviewed. Rest of plan as noted below. Plan: Supplemental oxygen Titrate to keep O2 sats above 92%. Continue bronchodilators. Steroids Continue antibiotics Monitor renal function. Monitor electrolytes. Supplement as necessary. Potassium supplementation Monitor ins and outs. GI prophylaxis - Pepcid DVT prophylaxis. Prognosis: Poor given patient's multiple co-morbidities. Rest of plan per hospitalist and other consultants. Thank you Josr Bliss DNP, for allowing me to participate in this patient's care. Further recommendations will depend on the patient's clinical course. Please do not hesitate to contact me if you have any questions or concerns. This medical document was created using an electronic medical record system with [employer] dictation system. Although these documentations are being carefully reviewed, there may still be some phonetic and typographical changes. The errors are purely typographical, due to imperfection on the software program, and do not reflect any compromise in the patient's medical care. Plan discussed with: Patient, Other (CHRISTIANNE Haider) ZENAIDA VOGEL MD Oct 08, 2024 23:01
[2024-10-09] VITALS (14 sets, daily range): BP systolic 93–105; BP diastolic 43–65; PULSE 58–84; RESP 16–68; TEMP 97.6–98.9; O2SAT 96–100
[2024-10-09] MEDS: cefTRIAXone 1GM/50ML D5W 50 ML IV SCH (09:32)
--- NOTE | 2024-10-09 10:48 | ECG ---
[facility] Test Date: 2024-10-07 Test Time: 00:35:45 Pat Name: PAMELA PARKER Department: ER Room: 0215T A Gender: M Call Worker Person: JEAN : 1945 Requested By: BOSTON BUNN Order Number: [id number] Reading MD: Micah Sin Measurements Intervals [place] Rate: 78 P: 78 OR: 161 QRS: 78 QRSD: 85 T: 41 QT: 409 QTc: 466 Interpretive Statements Sinus rhythm Multiform ventricular premature complexes Right atrial enlargement Borderline T wave abnormalities Electronically Signed On 10-09-2024 13:05:43 PST by Micah Sin Please click the below link to view image of tracing.
--- NOTE | 2024-10-09 12:06 | CONS ---
Pharmacy Clinical Information: CQM HF. Patient has intermittent low BP, should be taken into consideration when starting EBBB (takes carvedilol at home), ACEI/ARB/ARNI, MRA, and SGLT2 as these medication can cause hypotension. Once BP is stable, please consider adding ACEI/ARB/ARNI, MRA, and SGLT2 and restarting BB. Additionally, patient has COPD which might be exacerbated by beta blockers, possibly less so with cardioselective beta blockers versus nonselective beta-blockers (carvedilol); please consider close monitoring of patient signs and symptoms of bronchospasms. WALE HANDY PHARMACIST Oct 09, 2024 12:06
--- NOTE | 2024-10-09 14:45 | ECG ---
[facility] Test Date: 2024-10-06 Test Time: 22:59:33 Pat Name: PAMELA PARKER Department: ER Room: 0215T A Gender: M Zanjero: JEAN : 1945 Requested By: BOSTON BUNN Order Number: [id number] Reading MD: Micah Sin Measurements Intervals [place] Rate: 82 P: 79 [place]: 157 QRS: 83 QRSD: 85 T: 45 QT: 391 QTc: 457 Interpretive Statements Sinus rhythm Right atrial enlargement Borderline right axis deviation Electronically Signed On 10-11-2024 14:14:37 PST by Micah Sin Please click the below link to view image of tracing.
[2024-10-09 16:21] LABS: Base Excess 0.2 mmol/L (-2.0-3.0)
--- NOTE | 2024-10-09 21:22 | DVHPN2 ---
Progress Note - Dictate Date Seen: Oct 09, 2024 Medical Necessity Reason Pt with a Central, PICC or Fol: No Subjective Patient seen and examined at bedside. Remains on supplemental oxygen Overnight events reviewed. vital signs Vital Sign Date Time Temp Pulse Resp B/P (MAP) Pulse Ox O2 Delivery O2 Flow Rate FiO2 10/09/24 21:15 64 16 100/54 98 2.0 28 10/09/24 20:00 Nasal Cannula* 10/09/24 17:05 97.9 97.9 Total Intake and Output 10/08/24 10/08/24 10/09/24 15:00 23:00 07:00 Intake Total 900 ml 550 ml Balance 900 ml 550 ml medications Current Medications Medications Dose Ordered Sig/Gloria Route Start Time Stop Time Status Last Admin Dose Admin Aspirin 81 mg DAILY PO 10/07/24 10:00 10/09/24 09:32 81 MG Albuterol 2.5 mg Q4HPRN PRN NEB 10/07/24 03:15 10/09/24 09:02 2.5 MG Ipratropium [place] 0.5 mg Q4HPRN PRN NEB 10/07/24 03:15 10/09/24 09:02 0.5 MG Famotidine 20 mg DAILY IV 10/07/24 10:00 10/09/24 09:32 20 MG Sodium Chloride 10 ml Q8HR IV 10/07/24 06:00 10/09/24 21:16 10 ML Acetaminophen/ Hydrocodone Bitart 1 tab Q4HP PRN PO 10/07/24 03:15 Ondansetron HCl 4 mg Q4HP PRN IV 10/07/24 03:15 Docusate Sodium 100 mg BIDPRN PRN PO 10/07/24 03:15 Acetaminophen 650 mg Q6HP PRN PO 10/07/24 03:15 Nitroglycerin 0.4 mg Q5MINP PRN SL 10/07/24 03:15 Morphine Sulfate 2 mg Q30M PRN IV 10/07/24 03:15 Methylprednisolone Sodium Succinate 40 mg BID IV 10/07/24 22:00 10/09/24 21:16 40 MG Ceftriaxone Sodium 50 ml @ 100 mls/hr DAILY@09 IV 10/09/24 09:00 10/09/24 09:32 100 MLS/HR objective Gen.: Patient lying in bed in no apparent distress. On supplemental oxygen. Head: Normocephalic, atraumatic. Eyes: EOMI/PERRLA. Ears: Normal hearing. Normal anatomy. Neck/trachea: Trachea midline, supple. Nose: Normal external anatomy. Mouth: Moist mucous membranes. Chest: Decreased air entry bilaterally. No wheezing or rhonchi. Cardiovascular: Positive S1, positive S2. Regular rate and rhythm. Abdomen: Positive bowel sounds in all 4 quadrants. Soft, non-tender, non- distended. : Deferred. Rectal: Deferred. Skin: Warm, dry. Intact. Extremities: 2+ radial pulses bilaterally. No lower extremity edema. Neuro: Awake, alert, oriented x3. No gross motor or sensory deficits. Cranial nerves II through XII intact. Gait not assessed. laboratory and microbiology Laboratory Tests 10/08/24 05:35 Test 10/08/24 05:35 Range/Units Serum Glucose 164 H 74-106 mg/dL Assessment/Plan Impression: Acute hypoxic respiratory failure COPD exacerbation Elevated troponin Hypokalemia Nicotine dependence Cough Events: Remains on supplemental oxygen, 2 LPM NC Taper O2 as tolerated Continue bronchodilators Continue steroids Continue antibiotics Smoking cessation discussed with pt. Assess and arrange for home O2 if necessary. Labs and imaging reviewed. Rest of plan as noted below. Plan: Supplemental oxygen Titrate to keep O2 sats above 92%. Continue bronchodilators. Steroids Continue antibiotics Monitor renal function. Monitor electrolytes. Supplement as necessary. Potassium supplementation Monitor ins and outs. GI prophylaxis - Pepcid DVT prophylaxis. Prognosis: Poor given patient's multiple co-morbidities. Rest of plan per hospitalist and other consultants. Thank you Josr Bliss DNP, for allowing me to participate in this patient's care. Further recommendations will depend on the patient's clinical course. Please do not hesitate to contact me if you have any questions or concerns. This medical document was created using an electronic medical record system with [employer] dictation system. Although these documentations are being carefully reviewed, there may still be some phonetic and typographical changes. The errors are purely typographical, due to imperfection on the software program, and do not reflect any compromise in the patient's medical care. Plan discussed with: Patient, Other (ZENAIDA Lafleur MD Oct 09, 2024 21:22
[2024-10-10] VITALS (12 sets, daily range): BP systolic 99–126; BP diastolic 43–66; PULSE 58–83; RESP 7–18; TEMP 97.7–98.3; O2SAT 59–100
--- NOTE | 2024-10-10 22:31 | DVHPN2 ---
Progress Note - Dictate Date Seen: Oct 10, 2024 Medical Necessity Reason Pt with a Central, PICC or Fol: No Subjective Patient seen and examined at bedside. Remains on supplemental oxygen Overnight events reviewed. vital signs Vital Sign Date Time Temp Pulse Resp B/P (MAP) Pulse Ox O2 Delivery O2 Flow Rate FiO2 10/10/24 20:49 59 18 59 10/10/24 20:41 Nasal Cannula* 2 28 10/10/24 13:00 98.2 109/63 (78) 98.2 Total Intake and Output 10/09/24 10/09/24 10/10/24 15:00 23:00 07:00 Intake Total 50 ml 700 ml 550 ml Balance 50 ml 700 ml 550 ml medications Current Medications Medications Dose Ordered Sig/Gloria Route Start Time Stop Time Status Last Admin Dose Admin Aspirin 81 mg DAILY PO 10/07/24 10:00 10/10/24 10:22 81 MG Albuterol 2.5 mg Q4HPRN PRN NEB 10/07/24 03:15 10/10/24 20:41 2.5 MG Ipratropium [place] 0.5 mg Q4HPRN PRN NEB 10/07/24 03:15 10/10/24 20:41 0.5 MG Famotidine 20 mg DAILY IV 10/07/24 10:00 10/10/24 10:21 20 MG Sodium Chloride 10 ml Q8HR IV 10/07/24 06:00 10/10/24 22:02 10 ML Acetaminophen/ Hydrocodone Bitart 1 tab Q4HP PRN PO 10/07/24 03:15 Ondansetron HCl 4 mg Q4HP PRN IV 10/07/24 03:15 Docusate Sodium 100 mg BIDPRN PRN PO 10/07/24 03:15 Acetaminophen 650 mg Q6HP PRN PO 10/07/24 03:15 Nitroglycerin 0.4 mg Q5MINP PRN SL 10/07/24 03:15 Morphine Sulfate 2 mg Q30M PRN IV 10/07/24 03:15 Methylprednisolone Sodium Succinate 40 mg BID IV 10/07/24 22:00 10/10/24 22:02 40 MG Ceftriaxone Sodium 50 ml @ 100 mls/hr DAILY@09 IV 10/09/24 09:00 10/10/24 10:22 100 MLS/HR objective Gen.: Patient lying in bed in no apparent distress. On supplemental oxygen. Head: Normocephalic, atraumatic. Eyes: EOMI/PERRLA. Ears: Normal hearing. Normal anatomy. Neck/trachea: Trachea midline, supple. Nose: Normal external anatomy. Mouth: Moist mucous membranes. Chest: Decreased air entry bilaterally. No wheezing or rhonchi. Cardiovascular: Positive S1, positive S2. Regular rate and rhythm. Abdomen: Positive bowel sounds in all 4 quadrants. Soft, non-tender, non- distended. : Deferred. Rectal: Deferred. Skin: Warm, dry. Intact. Extremities: 2+ radial pulses bilaterally. No lower extremity edema. Neuro: Awake, alert, oriented x3. No gross motor or sensory deficits. Cranial nerves II through XII intact. Gait not assessed. laboratory and microbiology Laboratory Tests 10/08/24 05:35 Test 10/08/24 05:35 Range/Units Serum Glucose 164 H 74-106 mg/dL Assessment/Plan Impression: Acute hypoxic respiratory failure COPD exacerbation Elevated troponin Hypokalemia Nicotine dependence Cough Events: Remains on supplemental oxygen, 2 LPM NC Taper O2 as tolerated ABG reviewed, compensated. Continue bronchodilators Continue steroids Continue antibiotics Incentive spirometry GI prophylaxis w/ Pepcid. Assess and arrange for home O2 if necessary. Disposition per hospitalist. Labs and imaging reviewed. Rest of plan as noted below. Plan: Supplemental oxygen Titrate to keep O2 sats above 92%. Continue bronchodilators. Steroids Continue antibiotics Monitor renal function. Monitor electrolytes. Supplement as necessary. Potassium supplementation Monitor ins and outs. Smoking cessation discussed with pt. GI prophylaxis - Pepcid DVT prophylaxis. Prognosis: Poor given patient's multiple co-morbidities. Rest of plan per hospitalist and other consultants. Thank you Josr Bliss DNP, for allowing me to participate in this patient's care. Further recommendations will depend on the patient's clinical course. Please do not hesitate to contact me if you have any questions or concerns. This medical document was created using an electronic medical record system with [employer] system. Although these documentations are being carefully reviewed, there may still be some phonetic and typographical changes. The errors are purely typographical, due to imperfection on the software program, and do not reflect any compromise in the patient's medical care. Dietary Evaluation Review Recommendations by RD: Increase Calorie Intake Comments: monitor PO intake, meet his needs at 75% minimum Expected Outcomes/Goals: gradual weight gain. Plan discussed with: Patient, Other (CHRISTIANNE Banks) ZENAIDA VOGEL MD Oct 10, 2024 22:31
[2024-10-11] VITALS (12 sets, daily range): BP systolic 95–117; BP diastolic 42–65; PULSE 57–114; RESP 16–20; TEMP 97.7–98.2; O2SAT 91–99
--- NOTE | 2024-10-11 11:08 | DVHPN2 ---
Progress Note - Dictate Date Seen: Oct 09, 2024 Medical Necessity Reason Pt with a Central, PICC or Fol: No Subjective PT WITH PROGRESSIVE SX SOB NEGRETE HYPOXIA ENDSTAGE COPD TOBACCO USE CACHEXIA [facility] ON 2021 1. Left main calcified, no flow restrictive lesion. Left anterior descending artery, mild intimal irregularity without any flow restrictive lesion. 2. Circumflex, mild intimal irregularity without any flow restrictive lesion. 3. Right coronary artery, mild intimal irregularity without any flow restrictive lesion. 4. Left ventricular function shows global hypokinesis with an estimated EF around 30-35% with an LVEDD EF of 10 mmHg with no gradient across the aortic valve with aortic valve pressure of 110. 5. Left and right iliac angiography shows moderate diffuse disease with heavy calcification while there was no flow restrictive lesion noted. At this time, conservative medical management should be implemented for the lower extremity, aggressive risk modification and again encouraged the patient to discontinue smoking. At this time, no catheter-based or surgical intervention is warranted for both coronary or peripheral anatomy. HFrEF CHRONIC CXR EMPHYSEMA vital signs Vital Sign Date Time Temp Pulse Resp B/P (MAP) Pulse Ox O2 Delivery O2 Flow Rate FiO2 10/11/24 10:47 99 Nasal Cannula* 1 10/11/24 09:00 97.8 57 20 117/60 (79) 97.8 Total Intake and Output 10/10/24 10/10/24 10/11/24 15:00 23:00 07:00 Intake Total 50 ml 550 ml 550 ml Balance 50 ml 550 ml 550 ml medications Current Medications Medications Dose Ordered Sig/Gloria Route Start Time Stop Time Status Last Admin Dose Admin Aspirin 81 mg DAILY PO 10/07/24 10:00 10/11/24 09:43 81 MG Albuterol 2.5 mg Q4HPRN PRN NEB 10/07/24 03:15 10/10/24 20:41 2.5 MG Ipratropium [place] 0.5 mg Q4HPRN PRN NEB 10/07/24 03:15 10/10/24 20:41 0.5 MG Famotidine 20 mg DAILY IV 10/07/24 10:00 10/11/24 09:42 20 MG Sodium Chloride 10 ml Q8HR IV 10/07/24 06:00 10/11/24 05:26 10 ML Acetaminophen/ Hydrocodone Bitart 1 tab Q4HP PRN PO 10/07/24 03:15 Ondansetron HCl 4 mg Q4HP PRN IV 10/07/24 03:15 Docusate Sodium 100 mg BIDPRN PRN PO 10/07/24 03:15 Acetaminophen 650 mg Q6HP PRN PO 10/07/24 03:15 Nitroglycerin 0.4 mg Q5MINP PRN SL 10/07/24 03:15 Morphine Sulfate 2 mg Q30M PRN IV 10/07/24 03:15 Methylprednisolone Sodium Succinate 40 mg BID IV 10/07/24 22:00 10/11/24 09:43 40 MG Ceftriaxone Sodium 50 ml @ 100 mls/hr DAILY@09 IV 10/09/24 09:00 10/11/24 09:42 100 MLS/HR laboratory and microbiology Laboratory Tests 10/08/24 05:35 Test 10/08/24 05:35 Range/Units Serum Glucose 164 H 74-106 mg/dL Problem List PROGRESSIVE SX SOB NEGRETE HYPOXIA ENDSTAGE COPD TOBACCO USE CACHEXIA [facility] ON 2021 1. Left main calcified, no flow restrictive lesion. Left anterior descending artery, mild intimal irregularity without any flow restrictive lesion. 2. Circumflex, mild intimal irregularity without any flow restrictive lesion. 3. Right coronary artery, mild intimal irregularity without any flow restrictive lesion. 4. Left ventricular function shows global hypokinesis with an estimated EF around 30-35% with an LVEDD EF of 10 mmHg with no gradient across the aortic valve with aortic valve pressure of 110. 5. Left and right iliac angiography shows moderate diffuse disease with heavy calcification while there was no flow restrictive lesion noted. At this time, conservative medical management should be implemented for the lower extremity, aggressive risk modification and again encouraged the patient to discontinue smoking. At this time, no catheter-based or surgical intervention is warranted for both coronary or peripheral anatomy. HFrEF CHRONIC CXR EMPHYSEMA Assessment/Plan NO EVIDENCE FOR HF ACUTE EXACERBATION OF COPD ABX INHALER HYPOXIA WITH AMBULATION Dietary Evaluation Review Recommendations by RD: Increase Calorie Intake Comments: monitor PO intake, meet his needs at 75% minimum Expected Outcomes/Goals: gradual weight gain. Plan discussed with: Patient, Spouse Critical Care Time(min): 35 MI ORTEGA MD Oct 11, 2024 11:08
--- NOTE | 2024-10-11 11:11 | DVHPN2 ---
Progress Note - Dictate Date Seen: Oct 10, 2024 Medical Necessity Reason Pt with a Central, PICC or Fol: No Subjective PT WITH PROGRESSIVE SX SOB NEGRETE HYPOXIA ENDSTAGE COPD TOBACCO USE CACHEXIA [facility] ON 2021 1. Left main calcified, no flow restrictive lesion. Left anterior descending artery, mild intimal irregularity without any flow restrictive lesion. 2. Circumflex, mild intimal irregularity without any flow restrictive lesion. 3. Right coronary artery, mild intimal irregularity without any flow restrictive lesion. 4. Left ventricular function shows global hypokinesis with an estimated EF around 30-35% with an LVEDD EF of 10 mmHg with no gradient across the aortic valve with aortic valve pressure of 110. 5. Left and right iliac angiography shows moderate diffuse disease with heavy calcification while there was no flow restrictive lesion noted. At this time, conservative medical management should be implemented for the lower extremity, aggressive risk modification and again encouraged the patient to discontinue smoking. At this time, no catheter-based or surgical intervention is warranted for both coronary or peripheral anatomy. HFrEF CHRONIC CXR EMPHYSEMA vital signs Vital Sign Date Time Temp Pulse Resp B/P (MAP) Pulse Ox O2 Delivery O2 Flow Rate FiO2 10/11/24 10:47 99 Nasal Cannula* 1 10/11/24 09:00 97.8 57 20 117/60 (79) 97.8 Total Intake and Output 10/10/24 10/10/24 10/11/24 15:00 23:00 07:00 Intake Total 50 ml 550 ml 550 ml Balance 50 ml 550 ml 550 ml medications Current Medications Medications Dose Ordered Sig/Gloria Route Start Time Stop Time Status Last Admin Dose Admin Aspirin 81 mg DAILY PO 10/07/24 10:00 10/11/24 09:43 81 MG Albuterol 2.5 mg Q4HPRN PRN NEB 10/07/24 03:15 10/10/24 20:41 2.5 MG Ipratropium [place] 0.5 mg Q4HPRN PRN NEB 10/07/24 03:15 10/10/24 20:41 0.5 MG Famotidine 20 mg DAILY IV 10/07/24 10:00 10/11/24 09:42 20 MG Sodium Chloride 10 ml Q8HR IV 10/07/24 06:00 10/11/24 05:26 10 ML Acetaminophen/ Hydrocodone Bitart 1 tab Q4HP PRN PO 10/07/24 03:15 Ondansetron HCl 4 mg Q4HP PRN IV 10/07/24 03:15 Docusate Sodium 100 mg BIDPRN PRN PO 10/07/24 03:15 Acetaminophen 650 mg Q6HP PRN PO 10/07/24 03:15 Nitroglycerin 0.4 mg Q5MINP PRN SL 10/07/24 03:15 Morphine Sulfate 2 mg Q30M PRN IV 10/07/24 03:15 Methylprednisolone Sodium Succinate 40 mg BID IV 10/07/24 22:00 10/11/24 09:43 40 MG Ceftriaxone Sodium 50 ml @ 100 mls/hr DAILY@09 IV 10/09/24 09:00 10/11/24 09:42 100 MLS/HR laboratory and microbiology Laboratory Tests 10/08/24 05:35 Test 10/08/24 05:35 Range/Units Serum Glucose 164 H 74-106 mg/dL Problem List PROGRESSIVE SX SOB NEGRETE HYPOXIA ENDSTAGE COPD TOBACCO USE CACHEXIA [facility] ON 2021 1. Left main calcified, no flow restrictive lesion. Left anterior descending artery, mild intimal irregularity without any flow restrictive lesion. 2. Circumflex, mild intimal irregularity without any flow restrictive lesion. 3. Right coronary artery, mild intimal irregularity without any flow restrictive lesion. 4. Left ventricular function shows global hypokinesis with an estimated EF around 30-35% with an LVEDD EF of 10 mmHg with no gradient across the aortic valve with aortic valve pressure of 110. 5. Left and right iliac angiography shows moderate diffuse disease with heavy calcification while there was no flow restrictive lesion noted. At this time, conservative medical management should be implemented for the lower extremity, aggressive risk modification and again encouraged the patient to discontinue smoking. At this time, no catheter-based or surgical intervention is warranted for both coronary or peripheral anatomy. HFrEF CHRONIC CXR EMPHYSEMA Assessment/Plan NO EVIDENCE FOR HF ACUTE EXACERBATION OF COPD ABX INHALER HYPOXIA WITH AMBULATION CHECK O2 SAT ON AMBULATION ARRANGE FOR HOME O2 CBC CHEST X RAY Dietary Evaluation Review Recommendations by RD: Increase Calorie Intake Comments: monitor PO intake, meet his needs at 75% minimum Expected Outcomes/Goals: gradual weight gain. Plan discussed with: Patient Critical Care Time(min): 35 MI ORTEGA MD Oct 11, 2024 11:10
[2024-10-11 12:28] LABS: Basophils # (auto) 0 10 ^3/uL (0-0.2); Eosinophils # (auto) 0 10 ^3/uL (0-0.8); Hematocrit 44.6 % (41.0-53.0); Hemoglobin 14.7 g/dL (13.5-17.5); Lymphocytes # (auto) 0.8 10 ^3/uL (0.4-5.4); Lymphocytes % (auto) 6.9 % (10.0-50.0); Mean Corpuscular Hemoglobin 30.6 pg (28.0-32.0); Mean Corpuscular Hgb Conc. 32.8 g/dL (32.0-36.0); Mean Corpuscular Volume 93.1 fL (80.0-100.0); Monocytes # (auto) 0.6 10 ^3/uL (0-1.3); Monocytes % (auto) 4.7 % (0.0-12.0); Neutrophils # (auto) 10.6 10 ^3/uL (1.6-8.6); Neutrophils % (auto) 88.4 % (37.0-80.0); Platelet Count (auto) 204 10^3/uL (140-450); Red Blood Cells 4.79 10^6/uL (4.5-5.90); Red Cell Distribution Width 13.5 % (11.8-14.3)
--- NOTE | 2024-10-11 15:11 | DVH ---
CHEST RADIOGRAPH Indication: COPD Technique: Single frontal view of the chest was obtained COMPARISON: XY CHEST PORTABLE on DOS: 10/06/24 FINDINGS: Lines and Tubes: None Lungs: Clear Pleura: No effusion. No pneumothorax. Cardiomediastinal contours: Unremarkable Bones: Unremarkable IMPRESSION: 1. No acute disease.
--- NOTE | 2024-10-11 21:17 | DVHPN2 ---
Progress Note - Dictate Date Seen: Oct 11, 2024 Medical Necessity Reason Pt with a Central, PICC or Fol: No Subjective Patient seen and examined at bedside. Remains on supplemental oxygen Overnight events reviewed. vital signs Vital Sign Date Time Temp Pulse Resp B/P (MAP) Pulse Ox O2 Delivery O2 Flow Rate FiO2 10/11/24 19:18 70 16 97 10/11/24 19:12 Nasal Cannula 1.0 10/11/24 19:12 24 10/11/24 17:31 98.1 101/46 (64) 98.1 Total Intake and Output 10/10/24 10/10/24 10/11/24 15:00 23:00 07:00 Intake Total 50 ml 550 ml 550 ml Balance 50 ml 550 ml 550 ml medications Current Medications Medications Dose Ordered Sig/Gloria Route Start Time Stop Time Status Last Admin Dose Admin Aspirin 81 mg DAILY PO 10/07/24 10:00 10/11/24 09:43 81 MG Albuterol 2.5 mg Q4HPRN PRN NEB 10/07/24 03:15 10/11/24 19:12 2.5 MG Ipratropium [place] 0.5 mg Q4HPRN PRN NEB 10/07/24 03:15 10/11/24 19:12 0.5 MG Famotidine 20 mg DAILY IV 10/07/24 10:00 10/11/24 09:42 20 MG Sodium Chloride 10 ml Q8HR IV 10/07/24 06:00 10/11/24 20:58 10 ML Acetaminophen/ Hydrocodone Bitart 1 tab Q4HP PRN PO 10/07/24 03:15 Ondansetron HCl 4 mg Q4HP PRN IV 10/07/24 03:15 Docusate Sodium 100 mg BIDPRN PRN PO 10/07/24 03:15 Acetaminophen 650 mg Q6HP PRN PO 10/07/24 03:15 Nitroglycerin 0.4 mg Q5MINP PRN SL 10/07/24 03:15 Morphine Sulfate 2 mg Q30M PRN IV 10/07/24 03:15 Methylprednisolone Sodium Succinate 40 mg BID IV 10/07/24 22:00 10/11/24 21:01 40 MG Ceftriaxone Sodium 50 ml @ 100 mls/hr DAILY@09 IV 10/09/24 09:00 10/11/24 09:42 100 MLS/HR objective Gen.: Patient lying in bed in no apparent distress. On supplemental oxygen. Head: Normocephalic, atraumatic. Eyes: EOMI/PERRLA. Ears: Normal hearing. Normal anatomy. Neck/trachea: Trachea midline, supple. Nose: Normal external anatomy. Mouth: Moist mucous membranes. Chest: Decreased air entry bilaterally. No wheezing or rhonchi. Cardiovascular: Positive S1, positive S2. Regular rate and rhythm. Abdomen: Positive bowel sounds in all 4 quadrants. Soft, non-tender, non- distended. : Deferred. Rectal: Deferred. Skin: Warm, dry. Intact. Extremities: 2+ radial pulses bilaterally. No lower extremity edema. Neuro: Awake, alert, oriented x3. No gross motor or sensory deficits. Cranial nerves II through XII intact. Gait not assessed. laboratory and microbiology Laboratory Tests 10/11/24 11:54 10/08/24 05:35 Test 10/08/24 05:35 Range/Units Serum Glucose 164 H 74-106 mg/dL Assessment/Plan Impression: Acute hypoxic respiratory failure COPD exacerbation Elevated troponin Hypokalemia Nicotine dependence Cough Events: Remains on supplemental oxygen, 2 LPM NC Taper O2 as tolerated Continue bronchodilators Continue steroids Continue antibiotics Incentive spirometry GI prophylaxis w/ Pepcid. Assess and arrange for home O2 if necessary. Disposition per hospitalist. Labs and imaging reviewed. Rest of plan as noted below. Plan: Supplemental oxygen Titrate to keep O2 sats above 92%. Continue bronchodilators. Steroids Continue antibiotics Monitor renal function. Monitor electrolytes. Supplement as necessary. Potassium supplementation Monitor ins and outs. Smoking cessation discussed with pt. GI prophylaxis - Pepcid DVT prophylaxis. Prognosis: Poor given patient's multiple co-morbidities. Rest of plan per hospitalist and other consultants. Thank you Josr Bliss DNP, for allowing me to participate in this patient's care. Further recommendations will depend on the patient's clinical course. Please do not hesitate to contact me if you have any questions or concerns. This medical document was created using an electronic medical record system with [employer] system. Although these documentations are being carefully reviewed, there may still be some phonetic and typographical changes. The errors are purely typographical, due to imperfection on the software program, and do not reflect any compromise in the patient's medical care. Dietary Evaluation Review Recommendations by RD: Increase Calorie Intake Comments: monitor PO intake, meet his needs at 75% minimum Expected Outcomes/Goals: gradual weight gain. Plan discussed with: Patient, Other (RN Summer) ZENAIAD VOGEL MD Oct 11, 2024 21:17
[2024-10-12] VITALS (10 sets, daily range): BP systolic 105–126; BP diastolic 49–72; PULSE 53–73; RESP 16–20; TEMP 36.6; O2SAT 90–100
[2024-10-12 13:00] LABS: Base Excess 1.4 mmol/L (-2.0-3.0)
--- NOTE | 2024-10-12 13:01 | DVHPN2 ---
Progress Note - Dictate Date Seen: Oct 10, 2024 Medical Necessity Reason Pt with a Central, PICC or Fol: No Subjective PT WITH PROGRESSIVE SX SOB NEGRETE HYPOXIA ENDSTAGE COPD TOBACCO USE CACHEXIA [facility] ON 2021 1. Left main calcified, no flow restrictive lesion. Left anterior descending artery, mild intimal irregularity without any flow restrictive lesion. 2. Circumflex, mild intimal irregularity without any flow restrictive lesion. 3. Right coronary artery, mild intimal irregularity without any flow restrictive lesion. 4. Left ventricular function shows global hypokinesis with an estimated EF around 30-35% with an LVEDD EF of 10 mmHg with no gradient across the aortic valve with aortic valve pressure of 110. 5. Left and right iliac angiography shows moderate diffuse disease with heavy calcification while there was no flow restrictive lesion noted. At this time, conservative medical management should be implemented for the lower extremity, aggressive risk modification and again encouraged the patient to discontinue smoking. At this time, no catheter-based or surgical intervention is warranted for both coronary or peripheral anatomy. HFrEF CHRONIC CXR EMPHYSEMA vital signs Vital Sign Date Time Temp Pulse Resp B/P (MAP) Pulse Ox O2 Delivery O2 Flow Rate FiO2 10/12/24 09:47 64 16 100 10/12/24 09:41 Nasal Cannula* 1 24 10/12/24 09:20 98.4 114/58 (76) 98.4 Total Intake and Output 10/11/24 10/11/24 10/12/24 15:00 23:00 07:00 Intake Total 50 ml 680 ml 400 ml Output Total 700 ml Balance 50 ml -20 ml 400 ml medications Current Medications Medications Dose Ordered Sig/Gloria Route Start Time Stop Time Status Last Admin Dose Admin Aspirin 81 mg DAILY PO 10/07/24 10:00 10/12/24 09:09 81 MG Albuterol 2.5 mg Q4HPRN PRN NEB 10/07/24 03:15 10/12/24 09:41 2.5 MG Ipratropium [place] 0.5 mg Q4HPRN PRN NEB 10/07/24 03:15 10/12/24 09:41 0.5 MG Famotidine 20 mg DAILY IV 10/07/24 10:00 10/11/24 09:42 20 MG Sodium Chloride 10 ml Q8HR IV 10/07/24 06:00 10/12/24 05:41 10 ML Acetaminophen/ Hydrocodone Bitart 1 tab Q4HP PRN PO 10/07/24 03:15 Ondansetron HCl 4 mg Q4HP PRN IV 10/07/24 03:15 Docusate Sodium 100 mg BIDPRN PRN PO 10/07/24 03:15 Acetaminophen 650 mg Q6HP PRN PO 10/07/24 03:15 Nitroglycerin 0.4 mg Q5MINP PRN SL 10/07/24 03:15 Morphine Sulfate 2 mg Q30M PRN IV 10/07/24 03:15 Methylprednisolone Sodium Succinate 40 mg BID IV 10/07/24 22:00 10/12/24 09:09 40 MG Ceftriaxone Sodium 50 ml @ 100 mls/hr DAILY@09 IV 10/09/24 09:00 10/12/24 09:08 100 MLS/HR laboratory and microbiology Laboratory Tests 10/11/24 11:54 10/08/24 05:35 Test 10/08/24 05:35 Range/Units Serum Glucose 164 H 74-106 mg/dL Problem List PROGRESSIVE SX SOB NEGRETE HYPOXIA ENDSTAGE COPD TOBACCO USE CACHEXIA [facility] ON 2021 1. Left main calcified, no flow restrictive lesion. Left anterior descending artery, mild intimal irregularity without any flow restrictive lesion. 2. Circumflex, mild intimal irregularity without any flow restrictive lesion. 3. Right coronary artery, mild intimal irregularity without any flow restrictive lesion. 4. Left ventricular function shows global hypokinesis with an estimated EF around 30-35% with an LVEDD EF of 10 mmHg with no gradient across the aortic valve with aortic valve pressure of 110. 5. Left and right iliac angiography shows moderate diffuse disease with heavy calcification while there was no flow restrictive lesion noted. At this time, conservative medical management should be implemented for the lower extremity, aggressive risk modification and again encouraged the patient to discontinue smoking. At this time, no catheter-based or surgical intervention is warranted for both coronary or peripheral anatomy. HFrEF CHRONIC CXR EMPHYSEMA Assessment/Plan NO EVIDENCE FOR HF ACUTE EXACERBATION OF COPD ABX INHALER HYPOXIA WITH AMBULATION CHECK O2 SAT ON AMBULATION ARRANGE FOR HOME O2 CBC CHEST X RAY Dietary Evaluation Review Recommendations by RD: Increase Calorie Intake Comments: monitor PO intake, meet his needs at 75% minimum Expected Outcomes/Goals: gradual weight gain. Plan discussed with: Patient MI ORTEGA MD Oct 12, 2024 13:01
--- NOTE | 2024-10-12 13:06 | DVHDS2 ---
Discharge Summary Date of Admission Oct 07, 2024 at 03:04 Date of Discharge: Oct 12, 2024 Admitting Diagnosis RESP FAILURE Labs/Diagnostic Data: Laboratory Results Test 10/12/24 12:41 10/11/24 11:54 10/09/24 16:15 10/08/24 05:35 Blood Gas Specimen Type Arterial Blood Gas Sample Site Right radial Blood Gas Patient Temperature 37.0 Arterial Blood Date Drawn [id number] Arterial Blood pH 7.452 (7.350-7.450) Arterial Blood Partial Pressure CO2 36.7 mmHg (35.0-48.0) Arterial Blood Partial Pressure O2 58.2 mmHg (83.0-108.0) Arterial Blood HCO3 25.0 mmol/L (21.0-28.0) Arterial Blood Oxygen Saturation 90.5 % (94.0-98.0) Arterial Blood Base Excess 1.4 mmol/L (-2.0-3.0) Arterial Blood Oxyhemoglobin 89.4 % (94.0-98.0) Arterial Blood Carboxyhemoglobin 1.0 % (0.5-1.5) Arterial Blood Methemoglobin 0.2 % (0.0-1.5) Mao Test Yes Blood Gas Total Hemoglobin 15.70 g/dL (13.5-17.5) Blood Gas Modality Room air FiO2 % 21.0 White Blood Count 12.0 10^3/uL (4.4-10.8) Red Blood Count 4.79 10^6/uL (4.5-5.90) Hemoglobin 14.7 g/dL (13.5-17.5) Hematocrit 44.6 % (41.0-53.0) Mean Corpuscular Volume 93.1 fL (80.0-100.0) Mean Corpuscular Hemoglobin 30.6 pg (28.0-32.0) Mean Corpuscular Hemoglobin Concent 32.8 g/dL (32.0-36.0) Red Cell Distribution Width 13.5 % (11.8-14.3) Platelet Count 204 10^3/uL (140-450) Mean Platelet Volume 9.3 fL (6.9-10.8) Neutrophils (%) (Auto) 88.4 % (37.0-80.0) Lymphocytes (%) (Auto) 6.9 % (10.0-50.0) Monocytes (%) (Auto) 4.7 % (0.0-12.0) Eosinophils (%) (Auto) 0.0 % (0.0-7.0) Basophils (%) (Auto) 0.0 % (0.0-2.0) Neutrophils # (Auto) 10.6 10 ^3/uL (1.6-8.6) Lymphocytes # (Auto) 0.8 10 ^3/uL (0.4-5.4) Monocytes # (Auto) 0.6 10 ^3/uL (0-1.3) Eosinophils # (Auto) 0 10 ^3/uL (0-0.8) Basophils # (Auto) 0 10 ^3/uL (0-0.2) Nucleated Red Blood Cells 0.0 % Blood Gas Liter Flow 3.00 Sodium Level 141 mmol/L (136-145) Potassium Level 4.3 mmol/L (3.5-5.1) Chloride Level 104 mmol/L (98-107) Carbon Dioxide Level 29 mmol/L (20-31) Anion Gap 8 (5-15) Blood Urea Nitrogen 26 mg/dL (9-23) Creatinine 1.14 mg/dL (0.700-1.30) Glomerular Filtration Rate Calc 65 mL/min (>90) BUN/Creatinine Ratio 22.8 (10.0-20.0) Serum Glucose 164 mg/dL (74-106) Calcium Level 9.9 mg/dL (8.7-10.4) Total Bilirubin 0.6 mg/dL (0.2-1.0) Aspartate Amino Transferase (AST) 13 U/L (13-40) Alanine Aminotransferase (ALT) 13 U/L (7-40) Alkaline Phosphatase 48 U/L (46-116) Total Protein 6.3 g/dL (5.7-8.2) Albumin 3.8 g/dL (3.2-4.8) Test 10/08/24 04:27 10/07/24 19:05 10/07/24 06:04 10/07/24 01:30 Urine Color Yellow (Yellow) Urine Clarity Clear (Clear) Urine pH 6.0 (5.0-9.0) Urine Specific [place] 1.031 (1.001-1.035) Urine Protein Negative (Negative) Urine Ketones Trace (Negative) Urine Blood Negative /uL (Negative) Urine Nitrite Negative (Negative) Urine Bilirubin Negative (Negative) Urine Urobilinogen Normal mg/dL (Negative) Urine Leukocyte Esterase Negative /uL (Negative) Urine RBC None seen /hpf (0 - 3) Urine WBC None seen /hpf (0 - 3) Urine Squamous Epithelial Cells None seen /hpf (<5) Urine Bacteria None seen /hpf (None Seen) Urine Glucose Normal mg/dL (Normal) Urine Opiates Screen Neg (NEGATIVE) Urine Fentanyl Screen Neg (NEGATIVE) Urine Barbiturates Screen Neg (NEGATIVE) Urine Phencyclidine Screen Neg (NEGATIVE) Urine Amphetamines Screen Neg (NEGATIVE) Urine Benzodiazepines Screen Neg (NEGATIVE) Urine Cocaine Screen Neg (NEGATIVE) Urine Cannabinoids Screen Neg (NEGATIVE) Influenza Type A Antigen Negative (Negative) Influenza Type B Antigen Negative (Negative) SARS-CoV-2 Antigen (Rapid) Negative (NEGATIVE) Prothrombin Time 11.4 sec (9.3-11.8) Prothrombin Time INR 1.08 (0.9-1.15) Magnesium Level 1.8 mg/dL (1.6-2.6) Vitamin B12 Level 210 pg/mL (211-911) Vitamin D 25-Hydroxy 107.7 ng/mL (30.0-100) Folic Acid 20.33 ng/mL (>5.38) Thyroid Stimulating Hormone (TSH) 0.75 uIU/mL (0.55-4.78) Troponin I High Sensitivity 56 ng/L (</=54) Test 10/06/24 21:38 B-Type Natriuretic Peptide 107.81 pg/mL (0-100) Other Laboratory Tests 10/11/24 11:54 10/08/24 05:35 Brief Hx & Hospital Course: PROGRESSIVE SX SOB NEGRETE HYPOXIA ENDSTAGE COPD TOBACCO USE CACHEXIA [facility] ON 2021 1. Left main calcified, no flow restrictive lesion. Left anterior descending artery, mild intimal irregularity without any flow restrictive lesion. 2. Circumflex, mild intimal irregularity without any flow restrictive lesion. 3. Right coronary artery, mild intimal irregularity without any flow restrictive lesion. 4. Left ventricular function shows global hypokinesis with an estimated EF around 30-35% with an LVEDD EF of 10 mmHg with no gradient across the aortic valve with aortic valve pressure of 110. 5. Left and right iliac angiography shows moderate diffuse disease with heavy calcification while there was no flow restrictive lesion noted. At this time, conservative medical management should be implemented for the lower extremity, aggressive risk modification and again encouraged the patient to discontinue smoking. At this time, no catheter-based or surgical intervention is warranted for both coronary or peripheral anatomy. HFrEF CHRONIC CXR EMPHYSEMA Assessment/Plan NO EVIDENCE FOR HF ACUTE EXACERBATION OF COPD ABX INHALER HYPOXIA WITH AMBULATION CHECK O2 SAT ON AMBULATION ARRANGE FOR HOME O2 CBC CHEST X RAY O2 TITRATED TO 1 L DC HOME ON 1 LITER O2 Consults/Reason for consult PULMONARY Condition at Discharge: Poor Final Diagnosis/Problems List PROGRESSIVE SX SOB NEGRETE HYPOXIA ENDSTAGE COPD TOBACCO USE CACHEXIA [facility] ON 2021 1. Left main calcified, no flow restrictive lesion. Left anterior descending artery, mild intimal irregularity without any flow restrictive lesion. 2. Circumflex, mild intimal irregularity without any flow restrictive lesion. 3. Right coronary artery, mild intimal irregularity without any flow restrictive lesion. 4. Left ventricular function shows global hypokinesis with an estimated EF around 30-35% with an LVEDD EF of 10 mmHg with no gradient across the aortic valve with aortic valve pressure of 110. 5. Left and right iliac angiography shows moderate diffuse disease with heavy calcification while there was no flow restrictive lesion noted. At this time, conservative medical management should be implemented for the lower extremity, aggressive risk modification and again encouraged the patient to discontinue smoking. At this time, no catheter-based or surgical intervention is warranted for both coronary or peripheral anatomy. HFrEF CHRONIC CXR EMPHYSEMA Discharge Disposition: Home Discharge Instruct/Medications Diet: Cardiac 2g Na,low cholest Activity: Light activity Follow Up/Referral: 2 WEEKS Medications: PREDNISONE 20 MG PO QD X7 HOME O2 2/L MIN RESUME HOME MEDS MED NEB ATROVENT 0.5 mg HHN Q8 TRELEGY 220/67.2 i PUFF QD Discharge Statement: "Patient was advised to return to the ER or call 911 if any headaches, dizziness, shortness of breath, chest pain, abdominal pain, bleeding, fevers, or worsening of medical condition. Patient was counseled about treatment plan, medications, possible side effects, patientverbalized understanding. All questions were answered to the best of my ability. This discharge took greater then 30 minutes in planning, reviewing documentation, counseling the patient, and discussing with other team members." ASSESSMENT ASSESSMENT Assessment MI ORTEGA MD Oct 12, 2024 13:06
--- NOTE | 2024-10-12 20:31 | DVHPN2 ---
Progress Note - Dictate Date Seen: Oct 12, 2024 Medical Necessity Reason Pt with a Central, PICC or Fol: No Subjective Patient seen and examined at bedside. Remains on supplemental oxygen Overnight events reviewed. vital signs Vital Sign Date Time Temp Pulse Resp B/P (MAP) Pulse Ox O2 Delivery O2 Flow Rate FiO2 10/12/24 19:38 36.6 67 18 96 10/12/24 17:00 112/60 (77) 10/12/24 09:41 Nasal Cannula* 1 24 Total Intake and Output 10/11/24 10/11/24 10/12/24 15:00 23:00 07:00 Intake Total 50 ml 680 ml 400 ml Output Total 700 ml Balance 50 ml -20 ml 400 ml medications Current Medications Medications Dose Ordered Sig/Gloria Route Start Time Stop Time Status Last Admin Dose Admin Aspirin 81 mg DAILY PO 10/07/24 10:00 10/12/24 09:09 81 MG Albuterol 2.5 mg Q4HPRN PRN NEB 10/07/24 03:15 10/12/24 09:41 2.5 MG Ipratropium [place] 0.5 mg Q4HPRN PRN NEB 10/07/24 03:15 10/12/24 09:41 0.5 MG Famotidine 20 mg DAILY IV 10/07/24 10:00 10/12/24 14:05 20 MG Sodium Chloride 10 ml Q8HR IV 10/07/24 06:00 10/12/24 13:09 10 ML Acetaminophen/ Hydrocodone Bitart 1 tab Q4HP PRN PO 10/07/24 03:15 Ondansetron HCl 4 mg Q4HP PRN IV 10/07/24 03:15 Docusate Sodium 100 mg BIDPRN PRN PO 10/07/24 03:15 Acetaminophen 650 mg Q6HP PRN PO 10/07/24 03:15 Nitroglycerin 0.4 mg Q5MINP PRN SL 10/07/24 03:15 Morphine Sulfate 2 mg Q30M PRN IV 10/07/24 03:15 Methylprednisolone Sodium Succinate 40 mg BID IV 10/07/24 22:00 10/12/24 09:09 40 MG Ceftriaxone Sodium 50 ml @ 100 mls/hr DAILY@09 IV 10/09/24 09:00 10/12/24 09:08 100 MLS/HR objective Gen.: Patient lying in bed in no apparent distress. On supplemental oxygen. Head: Normocephalic, atraumatic. Eyes: EOMI/PERRLA. Ears: Normal hearing. Normal anatomy. Neck/trachea: Trachea midline, supple. Nose: Normal external anatomy. Mouth: Moist mucous membranes. Chest: Decreased air entry bilaterally. No wheezing or rhonchi. Cardiovascular: Positive S1, positive S2. Regular rate and rhythm. Abdomen: Positive bowel sounds in all 4 quadrants. Soft, non-tender, non- distended. : Deferred. Rectal: Deferred. Skin: Warm, dry. Intact. Extremities: 2+ radial pulses bilaterally. No lower extremity edema. Neuro: Awake, alert, oriented x3. No gross motor or sensory deficits. Cranial nerves II through XII intact. Gait not assessed. laboratory and microbiology Laboratory Tests 10/11/24 11:54 10/08/24 05:35 Test 10/08/24 05:35 Range/Units Serum Glucose 164 H 74-106 mg/dL Assessment/Plan Impression: Acute hypoxic respiratory failure COPD exacerbation Elevated troponin Hypokalemia Nicotine dependence Cough Events: Remains on supplemental oxygen, tapered from 2 LPM to 1 LPM NC Taper O2 as tolerated Continue bronchodilators Continue steroids Continue antibiotics Incentive spirometry Obtain ABG on room air. GI prophylaxis w/ Pepcid. Assess and arrange for home O2 if necessary. Disposition per hospitalist. Labs and imaging reviewed. Rest of plan as noted below. Plan: Supplemental oxygen Titrate to keep O2 sats above 92%. Continue bronchodilators. Steroids Continue antibiotics Monitor renal function. Monitor electrolytes. Supplement as necessary. Potassium supplementation Monitor ins and outs. Smoking cessation discussed with pt. GI prophylaxis - Pepcid DVT prophylaxis. Prognosis: Poor given patient's multiple co-morbidities. Rest of plan per hospitalist and other consultants. Thank you Josr Bliss DNP, for allowing me to participate in this patient's care. Further recommendations will depend on the patient's clinical course. Please do not hesitate to contact me if you have any questions or concerns. This medical document was created using an electronic medical record system with [employer] system. Although these documentations are being carefully reviewed, there may still be some phonetic and typographical changes. The errors are purely typographical, due to imperfection on the software program, and do not reflect any compromise in the patient's medical care. Dietary Evaluation Review Recommendations by RD: Increase Calorie Intake Comments: monitor PO intake, meet his needs at 75% minimum Expected Outcomes/Goals: gradual weight gain. Plan discussed with: Patient, Other (CHRISTIANNE Leong) ZENAIDA VOGEL MD Oct 12, 2024 20:31
--- NOTE | 2024-10-15 16:41 | DVHSR ---
APPROVED REPORT EXAM: Two-dimensional and M-mode echocardiogram with Doppler and color Doppler. Blood Pressure: 102/65 mmHg INDICATION Cardiac delineation RISK FACTORS Height: 5'10", Weight: 124 DIMENSIONS LVDd4.7 (3.8-5.7cm)LA (2D)3.9 (1.9-4.0cm)Aortic Root3.2 (2.0-3.7cm) LVDs3.8 (2.5-4.0cm)LA (MM) (1.9-4.0cm)Aortic Cusp Exc1.4 (1.5-2.0cm) EF (%) 40.0 (55-70%)Rt. Atrium3.7 (1.9-4.0cm)Asc. Aorta3.2 cm IVSd0.9 (0.7-1.1cm)RV (D) (1.8-2.4cm) PWd0.6 (0.7-1.1cm) Mitral Valve MitralMitral Stenosis E wave0.61m/sMV Mean GR.mmHg A wave0.86m/sMV Peak GR.mmHg E/A ratio0.72D MVAcm2 DECEL [id number] 1/2 [place] Aortic Valve Aortic ValveAortic Stenosis V10.63m/[place] Mean GR.2mmHg V20.95m/[place] Peak GR.4mmHg LVOT Diameter2.1 (1.8-2.4cm)Doppler AVA2.30cm2 Tricuspid Valve TR Velocity2.80m/s [id number] Other Information Quality : Technically LimitedRhythm : Technically limited study due to body habitus. Conclusion EF <40%
== END 2024-10-12 21:05 | disposition home or self-care (01) | DRG 190 ==
LOC: ER 20:54 → TELE 10-07 03:04 → TELE-CENTR 10-07 21:30
PROVIDERS: ADMIT Internal Medicine Geriatric Medicine; ATTEND Internal Medicine Cardiovascular Disease
DX: J44.1 Chronic obstructive pulmonary disease with (acute) exacerbation (principal); J96.01 Acute respiratory failure with hypoxia; R64 Cachexia; I20.0 Unstable angina; I50.22 Chronic systolic (congestive) heart failure; Z68.1 Body mass index [BMI] 19.9 or less, adult; E87.6 Hypokalemia; J43.9 Emphysema, unspecified; F17.210 Nicotine dependence, cigarettes, uncomplicated; I11.0 Hypertensive heart disease with heart failure; Z88.0 Allergy status to penicillin; Z83.3 Family history of diabetes mellitus
CPT/HCPCS: 36415; 36600; 71045; 80053; 80307; 81001; 82306; 82607; 82746; 82805; 83735; 83880; 84443; 84484; 85025; 85610; 87426; 87804; 93005; 93306; 94640; 96374; 96375; 99291; G0378; J3490

== ENCOUNTER 2024-10-13 14:47 | Inpatient (IN) | payer MEDICARE, OTHER, MEDICAID ==
[~2024-10-13] VITALS: Ht 177.8 cm; Wt 56.6 kg
[~2024-10-13 14:47] MED LIST changes: -ASCO500C49 PO; -CALC667C PO; +CARV3.1240 PO; -CETI1TAB36 PO; -CHOL200021 PO; -COEN400C8 PO; -FLUT1SPR5; -IBUP1TAB4 PO
[2024-10-13] MEDS: ALBUTEROL SULF 2.5 MG/0.5ML(0.5%) NEB SOLN NEB ONE (16:01)
[2024-10-13] MEDS: IPRATROPIUM BROM 0.5 MG/2.5ML INH SOL NEB ONE (16:01)
--- NOTE | 2024-10-13 16:30 | ED.PDOC ---
SOB-HPI HPI Comments 78M presents from home with acute hypoxia. He was discharged from the hospital yesterday on home oxygen but was only discharged with 1 tank of oxygen that ran out. Patient does not have any resources or does not have any other oxygen at home so he returned to the hospital. Chief Complaint: Shortness of Breath Time Seen by MD: 15:52 Primary Care Provider: MI Reviewed notes: Nurses Notes, Medications, Allergies Information Source: Patient Mode of Arrival: Ambulatory Severity: Mild Timing: Hours Duration: Since onset Context: At Rest PE Risk Factors: None History of: COPD Modifying Factors: Nothing Associated Signs and Symptoms: None Past Medical History PAST MEDICAL HISTORY: COPD Surgical History: Denies all surgeries Family History Family History: Reviewed,noncontributory to illness Social History Smoker: Less Than 1 Pack/Day Alcohol: Denies ETOH Use Drugs: Denies Drug Use Lives In: Home Constitutional: denies: chills, diaphoresis, fatigue, fever, malaise, sweats, weakness, others EENTM: denies: blurred vision, double vision, ear bleeding, ear discharge, ear drainage, ear pain, ear ringing, eye pain, eye redness, hearing loss, mouth pain, mouth swelling, nasal discharge, nose bleeding, nose congestion, nose pain, photophobia, tearing, throat pain, throat swelling, voice changes, others Respiratory: reports: shortness of breath; denies: cough, hemoptysis, orthopnea, SOB at rest, SOB with excertion, stridor, wheezing, others Cardiovascular: denies: chest pain, dizzy spells, diaphoresis, Dyspnea on exertion, edema, irregular heart beat, left arm pain, lightheadedness, palpitations, PND, syncope, others Gastrointestinal: denies: abdomen distended, abdominal pain, blood streaked bowels, constipated, diarrhea, dysphagia, difficulty swallowing, hematemesis, melena, nausea, poor appetite, poor fluid intake, rectal bleeding, rectal pain, vomiting, others Genitourinary: denies: burning, dysuria, flank pain, frequency, hematuria, incontinence, penile discharge, penile sore, pain, testicle pain, testicle swelling, urgency, others Neurological: denies: dizziness, fainting, headache, left sided numbness, left sided weakness, numbness, paresthesia, pre-existing deficit, right sided numbness, right sided weakness, seizure, speech problems, tingling, tremors, weakness, others Musculoskeletal: denies: back pain, gout, joint pain, joint swelling, muscle pain, muscle stiffness, neck pain, others Integumetry: denies: bruises, change in color, change in hair/nails, dryness, laceration, lesions, lumps, rash, wounds, others Allergic/Immunocompromised: denies: Difficulty Healing, Frequent Infections, Hives, Itching, others Hematologic/Lymphatic: denies: anemia, blood clots, easy bleeding, easy bruising, swollen glands, others Endocrine: denies: excessive hunger, excessive sweating, excessive thirst, excessive urination, flushing, intolerance to cold, intolerance to heat, unexplained weight gain, unexplained weight loss, others Psychiatric: denies: anxiety, bipolar disorder, depression, hopeless, panic disorder, schizophrenia, sleepless, suicidal, others All Other Systems: Reviewed and Negative Physical Exam General Appearance: No Apparent Distress, Normal HEENT: Normal ENT Inspection, Pharynx Normal, TMs Normal Neck: Full Range of Motion, Non-Tender, Normal, Normal Inspection Respiratory: Chest Non-Tender, Lungs Clear, No Accessory Muscle Use, No Resp iratory Distress, Normal Breath Sounds Cardiovascular: No Edema, No JVD, No Murmur, No Gallop, Normal Peripheral Pulses, Regular Rate/Rhythm Breast Exam: Deferred Gastrointestinal: No Organomegaly, Non Tender, No Pulsatile Mass, Normal Bowel Sounds, Soft Genitalia: Deferred Pelvic: Deferred Rectal: Deferred Extremities: No calf tenderness, Normal capillary refill, Normal inspection, Normal range of motion, Non-tender, No pedal edema Musculoskeletal : Apperance: Normal Neurologic: Alert, ditch cleaner II-XII nml as Tested, No Motor Deficits, Normal Affect, Normal Mood, No Sensory Deficits Cerebellar Function: NOT DONE Reflexes: NOT DONE Skin: Dry, Normal Color, Warm Lymphatic: No Adenopathy Was a procedure done? Was a procedure done?: No Differential Dx Differential Diagnosis: COPD X-Ray, Labs, Meds, VS Vital Signs Date Time Temp Pulse Resp B/P (MAP) Pulse Ox O2 Delivery O2 Flow Rate FiO2 10/13/24 16:04 24 93 Nasal Cannula* 2 28 10/13/24 15:11 98.4 106 18 118/67 (84) 93 Current Medications Medications (Trade) Dose Ordered Sig/Gloria Route Start Time Stop Time Status Last Admin Albuterol (Ventolin Medneb) 5 mg ONCE ONCE NEB 10/13/24 15:15 10/13/24 15:24 DC 10/13/24 16:01 Ipratropium [place] (Atrovent Medneb) 0.5 mg ONCE ONCE NEB 10/13/24 15:15 10/13/24 15:24 DC 10/13/24 16:01 Time of 1ST Reevaluation: 16:22 Reevaluation 1ST: Unchanged Patient Education/Counseling: Diagnosis, Treatment Family Education/Counseling: No Family Present Departure 1 Departure Time of Disposition: 20:44 (Patient unfortunately did not have oxygen at this time and has no way to get it. We will admit patient for oxygen) Impression: Primary Impression: Acute hypoxic respiratory failure Disposition: ADMITTED INPATIENT Admit to: Med Surg Condition: Serious Critical Care Note Critical Care Time?: No Stability Stability form required: No Heart Score Heart Score: Heart Score Response (Comments) Value History N/A 0 EKG N/A 0 Age N/A 0 Risk Factors N/A 0 Troponin N/A 0 Total 0 I personally scribed for YURIY HERNANDEZ MD ([email or web address]) on 10/13/24 at 16:30. Electronically submitted by Geno Burciaga ([email or web address]). YURIY HERNANDEZ MD Oct 13, 2024 16:30
[2024-10-13] MEDS ORDERED: ONDANSETRON HCL 4 MG/2 ML VIAL IV PRN (21:45)
[2024-10-13] MEDS ORDERED: ACETAMINOPHEN 325 MG TAB PO PRN (21:45)
[2024-10-13] MEDS ORDERED: HYDROcodone-ACET 5/325MG TAB PO PRN (21:45)
[2024-10-13] MEDS ORDERED: DOCUSATE SOD 100 MG CAP PO PRN (21:45)
[2024-10-13] MEDS: methylPREDNISolone SOD SUCC 40 MG/ML VL IV SCH (22:00)
[2024-10-13] MEDS: SODIUM CHLOR 0.9% PF (SALINE LOCK) 10ML VIAL/SYR IV SCH (22:00)
[2024-10-13 22:15] LABS: Basophils # (auto) 0 10 ^3/uL (0-0.2); Basophils % (auto) 0.3 % (0.0-2.0); Eosinophils # (auto) 0.3 10 ^3/uL (0-0.8); Eosinophils % (auto) 1.6 % (0.0-7.0); Hematocrit 52.6 % (41.0-53.0); Hemoglobin 17.5 g/dL (13.5-17.5); Lymphocytes # (auto) 4.2 10 ^3/uL (0.4-5.4); Lymphocytes % (auto) 26.1 % (10.0-50.0); Mean Corpuscular Hemoglobin 30.8 pg (28.0-32.0); Mean Corpuscular Hgb Conc. 33.3 g/dL (32.0-36.0); Mean Corpuscular Volume 92.6 fL (80.0-100.0); Monocytes # (auto) 1.9 10 ^3/uL (0-1.3); Monocytes % (auto) 11.5 % (0.0-12.0); Neutrophils # (auto) 9.7 10 ^3/uL (1.6-8.6); Neutrophils % (auto) 60.5 % (37.0-80.0); Nucleated Red Blood Cells % 0.1 %; Platelet Count (auto) 253 10^3/uL (140-450); Red Blood Cells 5.68 10^6/uL (4.5-5.90); Red Cell Distribution Width 13.5 % (11.8-14.3); White Blood Cell 16.1 10^3/uL (4.4-10.8)
[2024-10-13 22:29] LABS: Alanine Aminotransferase 81 U/L (7-40); Alkaline Phosphatase 51 U/L (46-116); Anion Gap 5 (5-15); Aspartate Aminotransferase 24 U/L (13-40); Blood Urea Nitrogen 30 mg/dL (9-23); Calcium 9.5 mg/dL (8.7-10.4); Carbon Dioxide 31 mmol/L (20-31); Chloride 104 mmol/L (98-107); Glucose 101 mg/dL (74-106); Potassium 4.4 mmol/L (3.5-5.1); Sodium 140 mmol/L (136-145); Total Protein 6.6 g/dL (5.7-8.2)
[2024-10-13 22:56] VITALS: PULSE 79; RESP 16; O2SAT 96
[2024-10-13] MEDS: FAMOTIDINE (10MG/ML) 2ML VL IV SCH (23:05)
[2024-10-13] MEDS: methylPREDNISolone SOD SUCC 125 MG/2 ML VL IV ONE (23:05)
[2024-10-13] MEDS ORDERED: NITROGLYCERIN 0.4 MG SL TAB SL PRN (23:30)
[2024-10-13] MEDS ORDERED: MORPHINE SULFATE INJ 2 MG/ml SYRG IV PRN (23:30)
--- NOTE | 2024-10-13 23:32 | DVHHP2 ---
History of Present Illness Reason for Visit: Acute hypoxic respiratory failure Review of Systems Allergies: Coded Allergies: Amoxicillin (Verified Allergy, Unknown, 12/22/21) Clavulanic Acid (Verified Allergy, Unknown, 12/22/21) Medications Current Medications Medications Dose Ordered Sig/Gloria Route Start Time Stop Time Status Last Admin Dose Admin Albuterol 2.5 mg Q4HPRN PRN NEB 10/13/24 21:45 [address] [place] 0.5 mg Q4HPRN PRN NEB 10/13/24 21:45 Methylprednisolone Sodium Succinate 40 mg BID IV 10/13/24 22:00 Famotidine 20 mg Q12HR IV 10/13/24 22:00 10/13/24 23:05 20 MG Sodium Chloride 10 ml Q8HR IV 10/13/24 22:00 Acetaminophen/ Hydrocodone Bitart 1 tab Q4HP PRN PO 10/13/24 21:45 Ondansetron HCl 4 mg Q4HP PRN IV 10/13/24 21:45 Docusate Sodium 100 mg BIDPRN PRN PO 10/13/24 21:45 Acetaminophen 650 mg Q6HP PRN PO 10/13/24 21:45 Nitroglycerin 0.4 mg Q5MINP PRN SL 10/13/24 23:30 UNV Morphine Sulfate 2 mg Q30M PRN IV 10/13/24 23:30 UNV Exam Vital Signs Vital Signs Date Time Temp Pulse Resp B/P (MAP) Pulse Ox O2 Delivery O2 Flow Rate FiO2 10/13/24 22:56 98.2 79 16 103/70 (81) 96 98.2 10/13/24 22:56 Nasal Cannula* 2 28 Labs/Xrays Labs Test 10/13/24 22:00 Range/Units White Blood Count 16.1 #H 4.4-10.8 10^3/uL Red Blood Count 5.68 4.5-5.90 10^6/uL Hemoglobin 17.5 # 13.5-17.5 g/dL Hematocrit 52.6 # 41.0-53.0 % Mean Corpuscular Volume 92.6 80.0-100.0 fL Mean Corpuscular Hemoglobin 30.8 28.0-32.0 pg Mean Corpuscular Hemoglobin Concent 33.3 32.0-36.0 g/dL Red Cell Distribution Width 13.5 11.8-14.3 % Platelet Count 253 140-450 10^3/uL Mean Platelet Volume 9.1 6.9-10.8 fL Neutrophils (%) (Auto) 60.5 37.0-80.0 % Lymphocytes (%) (Auto) 26.1 10.0-50.0 % Monocytes (%) (Auto) 11.5 0.0-12.0 % Eosinophils (%) (Auto) 1.6 0.0-7.0 % Basophils (%) (Auto) 0.3 0.0-2.0 % Neutrophils # (Auto) 9.7 H 1.6-8.6 10 ^3/uL Lymphocytes # (Auto) 4.2 0.4-5.4 10 ^3/uL Monocytes # (Auto) 1.9 H 0-1.3 10 ^3/uL Eosinophils # (Auto) 0.3 0-0.8 10 ^3/uL Basophils # (Auto) 0 0-0.2 10 ^3/uL Nucleated Red Blood Cells 0.1 % Sodium Level 140 136-145 mmol/L Potassium Level 4.4 3.5-5.1 mmol/L Chloride Level 104 98-107 mmol/L Carbon Dioxide Level 31 20-31 mmol/L Anion Gap 5 5-15 Blood Urea Nitrogen 30 H 9-23 mg/dL Creatinine 1.20 0.700-1.30 mg/dL Glomerular Filtration Rate Calc 61 >90 mL/min BUN/Creatinine Ratio 25.0 H 10.0-20.0 Serum Glucose 101 74-106 mg/dL Hemoglobin A1c 6.4 H <5.7 % A1C Calcium Level 9.5 8.7-10.4 mg/dL Total Bilirubin 1.0 0.2-1.0 mg/dL Aspartate Amino Transferase (AST) 24 13-40 U/L Alanine Aminotransferase (ALT) 81 H 7-40 U/L Alkaline Phosphatase 51 46-116 U/L Total Protein 6.6 5.7-8.2 g/dL Albumin 4.0 3.2-4.8 g/dL Assessment/Plan My Orders Orders - JOSIANE PRESLEY DNP Procedure Category Date Status Time Albuterol Medneb PHA 10/13/24 In Process (Ventolin Medneb) 21:45 Ipratropium Medneb PHA 10/13/24 In Process (Atrovent Medneb) 21:45 Methylprednisolone PHA 10/13/24 In Process Sod Succ (Solu Medrol 22:00 Famotidine Injection PHA 10/13/24 In Process (Pepcid Injection) 22:00 *Consult CONS 10/13/24 Transmitted / 21:36 Allergies CHANTAL 10/13/24 In Process 21:36 Code Status CODE 10/13/24 Transmitted 21:36 Sodium Chloride Lock PHA 10/13/24 In Process (Saline Lock Ns) 22:00 Oxygen Per Hour RT 10/13/24 Transmitted 21:36 Hydrocodone-Acet PHA 10/13/24 In Process 5/325mg Tab ([place]us 21:45 Ondansetron Hcl PHA 10/13/24 In Process (Zofran) 21:45 Docusate Sodium PHA 10/13/24 In Process Capsule (Colace 21:45 Fall Risk Precautions CHANTAL 10/13/[address] 21:36 Complete Blood Count LAB 10/14/24 Verified 04:00 Comprehensive LAB 10/14/24 Verified Metabolic Panel 04:00 Cardiac DIET 10/14/24 Transmitted Diet-2gna,Lofat,Lochol Breakfast Condition: Serious CHANTAL 10/13/24 In Process 21:36 Acetaminophen Tablet PHA 10/13/24 In Process (Tylenol Tablet) 21:45 Sequential CHANTAL 10/13/24 In Process Compression Device Admit ADMIT 10/13/24 Transmitted 23:29 Nitroglycerin PHA 10/13/24 Transmitted Sublingual (Ntrostat 23:30 Morphine Sulfate PHA 10/13/24 Transmitted Injection 23:30 Stat Ekg For Chest CHANTAL 10/13/24 In Process Pain 23:29 Notify Of Changes CHANTAL 10/13/24 In Process From Base 23:29 Yarn Sorter For CHANTAL 10/13/24 In Process 24 Hours 23:29 Emergency Dysrhythmia CHANTAL 10/13/24 In Process Protocol 23:29 Rhythm Strips Once CHANTAL 10/13/24 In Process Every Shift 23:29 Oxygen By Nasal RT 10/13/24 Transmitted Cannula 23:29 Blood Culture JULI 10/13/24 Transmitted 23:29 Cefepime 1 Gm PHA 10/14/24 Verified 10:00 JOSIANE PRESLEY DNP Oct 13, 2024 23:32
[2024-10-14] VITALS (11 sets, daily range): BP systolic 101–112; BP diastolic 54–70; PULSE 57–87; RESP 18–20; TEMP 97.7–98.6; O2SAT 93–100
--- NOTE | 2024-10-14 01:08 | DVHINCON2 ---
Date of service: Oct 13, 2024 Referring Physician Josr Bliss NP Reason for Consultation Shortness of breath History of Present Illness 78-year-old man history of COPD, nicotine dependence who was recently discharged from the hospital he was discharged with one tank of oxygen ran out. He retu rned to the hospital due to hypoxia and shortness of breath. Review of systems: 14 point review of systems is negative unless otherwise noted above. Past medical history: COPD, nicotine dependence, pulmonary cachexia Past surgical history: None mentioned in prior surgeries. Medications: Reviewed Allergies: Amoxicillin, clavulanic acid Family history: No family history of premature CAD. No family history of lung disease. Social history: Smokes one pack per day. No alcohol or illicit drug use. Lives with family. Family History: Diabetes mellitus MATERNAL GRANDMOTHER, Onset:Unknown Allergies: Coded Allergies: Amoxicillin (Verified Allergy, Unknown, 12/22/21) Clavulanic Acid (Verified Allergy, Unknown, 12/22/21) Home Meds Reported Medications Carvedilol (Carvedilol) 3.125 Mg Tab, 1 TAB PO BID 10/07/24 Prasugrel Hydrochloride (Effient) 10 Mg Tab, 10 MG PO for BLOOD THINNER, TAB TAKE EVERY OTHER DAY. 11/09/18 Hctz (Hydrochlorothiazide) 25 Mg Tab, 25 MG PO DAILY for EDEMA, TAB 11/09/18 Current Medications Current Medications Medications (Trade) Dose Ordered Sig/Gloria Route PRN Reason Start Time Stop Time Status Last Admin Albuterol (Ventolin Medneb) 2.5 mg Q4HPRN PRN NEB SHORTNESS OF BREATH 10/13/24 21:45 Ipratropium [place] (Atrovent Medneb) 0.5 mg Q4HPRN PRN NEB SHORTNESS OF BREATH 10/13/24 21:45 Methylprednisolone Sodium Succinate (Solu Medrol) 40 mg BID IV 10/13/24 22:00 Famotidine (Pepcid Injection) 20 mg Q12HR IV 10/13/24 22:00 10/13/24 23:05 Sodium Chloride (Saline Lock Ns) 10 ml Q8HR IV 10/13/24 22:00 Acetaminophen/ Hydrocodone Bitart ([place] 5/325MG Tab) 1 tab Q4HP PRN PO MODERATE PAIN (4-6 PAIN SCALE) 10/13/24 21:45 Ondansetron HCl (Zofran) 4 mg Q4HP PRN IV NAUSEA / VOMITING 10/13/24 21:45 Docusate Sodium (Colace Capsule) 100 mg BIDPRN PRN PO FOR CONSTIPATION 10/13/24 21:45 Acetaminophen (Tylenol Tablet) 650 mg Q6HP PRN PO PAIN SCALE 1-3 OR TEMP>100.4 10/13/24 21:45 Nitroglycerin (Ntrostat Sublingual) 0.4 mg Q5MINP PRN SL FOR CHEST PAIN 10/13/24 23:30 Morphine Sulfate 2 mg Q30M PRN IV FOR CHEST PAIN 10/13/24 23:30 Cefepime HCl 50 ml @ 12.5 mls/hr Q12HR IV 10/14/24 10:00 Vital Signs Vital Signs Date Time Temp Pulse Resp B/P (MAP) Pulse Ox O2 Delivery O2 Flow Rate FiO2 10/13/24 22:56 98.2 79 16 103/70 (81) 96 98.2 10/13/24 22:56 Nasal Cannula* 2 28 Physical Exam Gen.: Patient lying in bed in no apparent distress. On supplemental oxygen. Head: Normocephalic, atraumatic Eyes: EOMI/PERRLA. Ears: Normal hearing. Normal anatomy. Neck/trachea: Trachea midline, supple. Nose: Normal external anatomy. Mouth: Moist mucous membranes. Chest: Decreased air entry bilaterally. No wheezing or rhonchi. Cardio vascular: Positive S1, positive S2. Regular rate and rhythm. Abdomen: Positive bowel sounds in all 4 quadrants. Soft, non-tender, non- distended. : Deferred. Rectal: Deferred Skin: Warm, dry. Extremities: 2+ radial pulses bilaterally. No lower extremity edema. Neuro: Awake, alert, oriented x3. No gross motor or sensory deficits. Cranial nerves II through XII intact. Gait not assessed. Labs/Diagnostic Data Labs Test 10/13/24 22:00 Range/Units White Blood Count 16.1 #H 4.4-10.8 10^3/uL Red Blood Count 5.68 4.5-5.90 10^6/uL Hemoglobin 17.5 # 13.5-17.5 g/dL Hematocrit 52.6 # 41.0-53.0 % Mean Corpuscular Volume 92.6 80.0-100.0 fL Mean Corpuscular Hemoglobin 30.8 28.0-32.0 pg Mean Corpuscular Hemoglobin Concent 33.3 32.0-36.0 g/dL Red Cell Distribution Width 13.5 11.8-14.3 % Platelet Count 253 140-450 10^3/uL Mean Platelet Volume 9.1 6.9-10.8 fL Neutrophils (%) (Auto) 60.5 37.0-80.0 % Lymphocytes (%) (Auto) 26.1 10.0-50.0 % Monocytes (%) (Auto) 11.5 0.0-12.0 % Eosinophils (%) (Auto) 1.6 0.0-7.0 % Basophils (%) (Auto) 0.3 0.0-2.0 % Neutrophils # (Auto) 9.7 H 1.6-8.6 10 ^3/uL Lymphocytes # (Auto) 4.2 0.4-5.4 10 ^3/uL Monocytes # (Auto) 1.9 H 0-1.3 10 ^3/uL Eosinophils # (Auto) 0.3 0-0.8 10 ^3/uL Basophils # (Auto) 0 0-0.2 10 ^3/uL Nucleated Red Blood Cells 0.1 % Sodium Level 140 136-145 mmol/L Potassium Level 4.4 3.5-5.1 mmol/L Chloride Level 104 98-107 mmol/L Carbon Dioxide Level 31 20-31 mmol/L Anion Gap 5 5-15 Blood Urea Nitrogen 30 H 9-23 mg/dL Creatinine 1.20 0.700-1.30 mg/dL Glomerular Filtration Rate Calc 61 >90 mL/min BUN/Creatinine Ratio 25.0 H 10.0-20.0 Serum Glucose 101 74-106 mg/dL Hemoglobin A1c 6.4 H <5.7 % A1C Calcium Level 9.5 8.7-10.4 mg/dL Total Bilirubin 1.0 0.2-1.0 mg/dL Aspartate Amino Transferase (AST) 24 13-40 U/L Alanine Aminotransferase (ALT) 81 H 7-40 U/L Alkaline Phosphatase 51 46-116 U/L Total Protein 6.6 5.7-8.2 g/dL Albumin 4.0 3.2-4.8 g/dL Assessment Impression: Chronic hypoxic respiratory failure Dependence on supplemental oxygen COPD Emphysema Nicotine dependence Pulmonary cachexia BMI 17.7 Plan: Recent chest x-ray from October 11, 2024. No pleural effusion or pneumothorax. No acute opacities. Supplemental oxygen on 2 liters/minute via nasal cannula. Keep O2 saturation above 92%. Bronchodilators PRN IV steroids with Solu-Medrol Start Pulmicort Incentive spirometry On antibiotics due to leukocytosis Monitor WBC count Nutritional support recommended due to pulmonary cachexia GI prophylaxis with Pepcid Prognosis: Poor given multiple comorbidities. Rest of plan per hospitalist and other consultants. Thank you JEAN Bliss for allowing me to participate in this patient's care. Further recommendations will depend on patient's clinical course. Please do not hesitate to contact me if you have any questions or concerns. This medical document was created using an electronic medical record system with [employer] dictation system. Although this document has been carefully reviewed, there may still be some phonetic and typographical errors. These areas are purely typographical due to imperfections of the software programs, and do not reflect any compromise in the patient's medical care. Plan discussed with: Patient, Other (RN, PORT CRANE OPERATOR) ZENAIDA VOGEL MD Oct 14, 2024 01:08
[2024-10-14 06:20] LABS: Basophils # (auto) 0 10 ^3/uL (0-0.2); Basophils % (auto) 0.1 % (0.0-2.0); Eosinophils # (auto) 0 10 ^3/uL (0-0.8); Eosinophils % (auto) 0.1 % (0.0-7.0); Hemoglobin 16.1 g/dL (13.5-17.5); Lymphocytes # (auto) 0.9 10 ^3/uL (0.4-5.4); Lymphocytes % (auto) 7.8 % (10.0-50.0); Mean Corpuscular Hemoglobin 31.4 pg (28.0-32.0); Mean Corpuscular Hgb Conc. 33.5 g/dL (32.0-36.0); Mean Corpuscular Volume 93.7 fL (80.0-100.0); Monocytes # (auto) 0.2 10 ^3/uL (0-1.3); Monocytes % (auto) 1.7 % (0.0-12.0); Neutrophils # (auto) 10.8 10 ^3/uL (1.6-8.6); Neutrophils % (auto) 90.3 % (37.0-80.0); Platelet Count (auto) 217 10^3/uL (140-450); Red Blood Cells 5.13 10^6/uL (4.5-5.90); Red Cell Distribution Width 13.6 % (11.8-14.3); White Blood Cell 11.9 10^3/uL (4.4-10.8)
[2024-10-14 06:28] LABS: Alkaline Phosphatase 47 U/L (46-116); Anion Gap 8 (5-15); BUN/Creatinine Ratio 26.7 (10.0-20.0); Calcium 9.4 mg/dL (8.7-10.4); Carbon Dioxide 28 mmol/L (20-31); Chloride 104 mmol/L (98-107); Potassium 4.8 mmol/L (3.5-5.1); Sodium 140 mmol/L (136-145)
[2024-10-14 06:29] LABS: Albumin 3.7 g/dL (3.2-4.8); Aspartate Aminotransferase 20 U/L (13-40)
[2024-10-14 06:54] LABS: Alanine Aminotransferase 73 U/L (7-40); Blood Urea Nitrogen 32 mg/dL (9-23); Glucose 162 mg/dL (74-106)
[2024-10-14] MEDS: BUDESONIDE (INHALATION) 0.5 MG/2 ML NEB NEB SCH (10:00)
[2024-10-14] MEDS: CEFEPIME 1GM/ 50ML 50 ML IV SCH (12:22)
[2024-10-14 13:19] LABS: Rapid Influenza A Negative (Negative); Rapid Influenza B Negative (Negative)
[2024-10-14 15:38] LABS: Base Excess 2.8 mmol/L (-2.0-3.0)
[2024-10-14 15:48] LABS: COVID19 ANTIGEN SOFIA FIA NEGATIVE (NEGATIVE)
--- NOTE | 2024-10-14 16:25 | DVHHPRES ---
History of Present Illness Resident Creating Document: JASON CARDOSO RESIDENT Reason for Visit: shortness of breath History of Present Illness 78-year-old male patient with past medical history of heart failure with reduced ejection fraction, COPD, hypertension, hyperlipidemia presented with complaint of shortness of breath. Patient was recently discharged on Tuesday for COPD exacerbation. Patient mentioned that he was waiting for his home oxygen arrangement while his oxygen cylinder got finished when he reached home and started having shortness of breath. He denied any chest pain, headache, dizziness, palpitation, orthopnea, nausea, vomiting, diarrhea. He also mentioned that he smoked four cigarettes after going to home because of stress. Past medical history Heart failure with reduced ejection fraction COPD Hypertension Hyperlipidemia Past surgical history Denied Allergic history Denied Social history Patient is active smoker, denied alcohol, marijuana or any other drug intake Family history Denied significant history Medication history Coreg, hydrochlorothiazide, prasugrel Review of system As described in the HPI Review of Systems Allergies: Coded Allergies: Amoxicillin (Verified Allergy, Unknown, 12/22/21) Clavulanic Acid (Verified Allergy, Unknown, 12/22/21) Medications Current Medications Medications Dose Ordered Sig/Gloria Route Start Time Stop Time Status Last Admin Dose Admin Albuterol 2.5 mg Q4HPRN PRN NEB 10/13/24 21:45 Ipratropium [place] 0.5 mg Q4HPRN PRN NEB 10/13/24 21:45 Methylprednisolone Sodium Succinate 40 mg BID IV 10/13/24 22:00 10/14/24 12:22 40 MG Famotidine 20 mg Q12HR IV 10/13/24 22:00 10/14/24 12:22 20 MG Sodium Chloride 10 ml Q8HR IV 10/13/24 22:00 10/14/24 06:16 10 ML Acetaminophen/ Hydrocodone Bitart 1 tab Q4HP PRN PO 10/13/24 21:45 Ondansetron HCl 4 mg Q4HP PRN IV 10/13/24 21:45 Docusate Sodium 100 mg BIDPRN PRN PO 10/13/24 21:45 Acetaminophen 650 mg Q6HP PRN PO 10/13/24 21:45 Nitroglycerin 0.4 mg Q5MINP PRN SL 10/13/24 23:30 Morphine Sulfate 2 mg Q30M PRN IV 10/13/24 23:30 Cefepime HCl 50 ml @ 12.5 mls/hr Q12HR IV 10/14/24 10:00 10/14/24 12:22 12.5 MLS/HR Budesonide 0.5 mg BID NEB 10/14/24 10:00 Exam Vital Signs Vital Signs Date Time Temp Pulse Resp B/P (MAP) Pulse Ox O2 Delivery O2 Flow Rate FiO2 10/14/24 10:00 94 Nasal Cannula 2.0 10/14/24 10:00 28 10/14/24 09:50 97.8 60 18 112/70 (84) 97.8 Exam Examination General Appearance: Alert, Oriented X3, Cooperative, No acute distress HEENT: EOMI Respiratory: Clear to auscultation, Normal air movement Cardiovascular: Regular rate, Normal S1, Normal S2 Abdominal: Normal bowel sounds Extremities: No cyanosis, No edema, Normal pulses, No tenderness/swelling Skin: No rashes, No breakdown Neuro: Normal speech and tone Labs/Xrays Labs Test 10/14/24 15:32 10/14/24 15:00 10/14/24 11:00 10/14/24 05:22 Range/Units Blood Gas Specimen Type Arterial Blood Gas Sample Site Right radial Blood Gas Patient Temperature 37.0 Arterial Blood Date Drawn [id number] Arterial Blood pH 7.467 H 7.350-7.450 Arterial Blood Partial Pressure CO2 37.3 35.0-48.0 mmHg Arterial Blood Partial Pressure O2 64.6 L 83.0-108.0 mmHg Arterial Blood HCO3 26.4 21.0-28.0 mmol/L Arterial Blood Oxygen Saturation 93.1 L 94.0-98.0 % Arterial Blood Base Excess 2.8 -2.0-3.0 mmol/L Arterial Blood Oxyhemoglobin 91.3 L 94.0-98.0 % Arterial Blood Carboxyhemoglobin 1.3 0.5-1.5 % Arterial Blood Methemoglobin 0.6 0.0-1.5 % Mao Test Yes Blood Gas Total Hemoglobin 16.00 13.5-17.5 g/dL Blood Gas Modality Room air FiO2 % 21.0 SARS-CoV-2 Antigen (Rapid) Negative NEGATIVE Influenza Type A Antigen Negative Negative Influenza Type B Antigen Negative Negative White Blood Count 11.9 #H 4.4-10.8 10^3/uL Red Blood Count 5.13 4.5-5.90 10^6/uL Hemoglobin 16.1 13.5-17.5 g/dL Hematocrit 48.0 41.0-53.0 % Mean Corpuscular Volume 93.7 80.0-100.0 fL Mean Corpuscular Hemoglobin 31.4 28.0-32.0 pg Mean Corpuscular Hemoglobin Concent 33.5 32.0-36.0 g/dL Red Cell Distribution Width 13.6 11.8-14.3 % Platelet Count 217 140-450 10^3/uL Mean Platelet Volume 9.1 6.9-10.8 fL Neutrophils (%) (Auto) 90.3 H 37.0-80.0 % Lymphocytes (%) (Auto) 7.8 L 10.0-50.0 % Monocytes (%) (Auto) 1.7 0.0-12.0 % Eosinophils (%) (Auto) 0.1 0.0-7.0 % Basophils (%) (Auto) 0.1 0.0-2.0 % Neutrophils # (Auto) 10.8 H 1.6-8.6 10 ^3/uL Lymphocytes # (Auto) 0.9 0.4-5.4 10 ^3/uL Monocytes # (Auto) 0.2 0-1.3 10 ^3/uL Eosinophils # (Auto) 0 0-0.8 10 ^3/uL Basophils # (Auto) 0 0-0.2 10 ^3/uL Nucleated Red Blood Cells 0.0 % Sodium Level 140 136-145 mmol/L Potassium Level 4.8 3.5-5.1 mmol/L Chloride Level 104 98-107 mmol/L Carbon Dioxide Level 28 20-31 mmol/L Anion Gap 8 5-15 Blood Urea Nitrogen 32 H 9-23 mg/dL Creatinine 1.20 0.700-1.30 mg/dL Glomerular Filtration Rate Calc 61 >90 mL/min BUN/Creatinine Ratio 26.7 H 10.0-20.0 Serum Glucose 162 H 74-106 mg/dL Calcium Level 9.4 8.7-10.4 mg/dL Total Bilirubin 1.0 0.2-1.0 mg/dL Aspartate Amino Transferase (AST) 20 13-40 U/L Alanine Aminotransferase (ALT) 73 H 7-40 U/L Alkaline Phosphatase 47 46-116 U/L Total Protein 6.0 5.7-8.2 g/dL Albumin 3.7 3.2-4.8 g/dL Test 10/13/24 22:00 Range/Units Hemoglobin A1c 6.4 H <5.7 % A1C Assessment/Plan Assessment/Plan Assessment #acute on ?Chronic Hypoxic Respiratory failure likely due to COPD/CHF -currently on 2l oxygen -ABG on room air #?COPD exacerbation -Target SpO2 is 88-92%. -Nebulize with Ipratropium and Albuterol -switch to oral prednisone in the AM, currently on IV methylprednisone #HFrEF -last echo 30-35% EF -continue home meds #hypertension continue home meds DVT prophylaxis -lovenox 40mg daily Code staus discussed with the patient for >21 minutes, FULL CODE Case discussion with Dr Hatfield Plan discussed with: Patient, Other My Orders Orders - JASON CARDOSO RESIDENT Procedure Category Date Status Time * Leather Softener CONS 10/14/24 Transmitted Consult Abg W/ Co-Ox RT 10/14/24 Logged 14:05 Date of Service: Oct 14, 2024 Billing Provider: MALI HATFIELD MD Common Visit Codes: 78738-ZLMVFSH INP/OBS CARE (HIGH) Secondary Visit Codes: 37738-[id number] CARE PLAN 30 MINUTES JASON CARDOSO Oct 14, 2024 16:25 MALI HATFIELD MD Oct 14, 2024 22:46
[2024-10-14] MEDS: ENOXAPARIN SOD 40 MG/0.4 ML SYRINGE SC SCH (19:38)
--- NOTE | 2024-10-14 20:21 | DVHPN2 ---
Progress Note - Dictate Date Seen: Oct 14, 2024 Medical Necessity Reason Pt with a Central, PICC or Fol: No Subjective Patient seen and examined at bedside. Remains on supplemental oxygen Overnight events reviewed. vital signs Vital Sign Date Time Temp Pulse Resp B/P (MAP) Pulse Ox O2 Delivery O2 Flow Rate FiO2 10/14/24 19:48 98 Nasal Cannula* 2 10/14/24 16:53 97.7 87 18 105/56 (72) 97.7 medications Current Medications Medications Dose Ordered Sig/Gloria Route Start Time Stop Time Status Last Admin Dose Admin Albuterol 2.5 mg Q4HPRN PRN NEB 10/13/24 21:45 Ipratropium [place] 0.5 mg Q4HPRN PRN NEB 10/13/24 21:45 Methylprednisolone Sodium Succinate 40 mg BID IV 10/13/24 22:00 10/14/24 12:22 40 MG Famotidine 20 mg Q12HR IV 10/13/24 22:00 10/14/24 12:22 20 MG Sodium Chloride 10 ml Q8HR IV 10/13/24 22:00 10/14/24 06:16 10 ML Acetaminophen/ Hydrocodone Bitart 1 tab Q4HP PRN PO 10/13/24 21:45 Docusate Sodium 100 mg BIDPRN PRN PO 10/13/24 21:45 Acetaminophen 650 mg Q6HP PRN PO 10/13/24 21:45 Cefepime HCl 50 ml @ 12.5 mls/hr Q12HR IV 10/14/24 10:00 10/14/24 12:22 12.5 MLS/HR Budesonide 0.5 mg BID NEB 10/14/24 10:00 Carvedilol 3.125 mg BID PO 10/14/24 22:00 Hydrochlorothiazide 25 mg DAILY PO 10/15/24 10:00 Prasugrel 10 mg DAILY PO 10/15/24 10:00 Enoxaparin Sodium 40 mg DAILY@1800 SC 10/14/24 18:00 10/14/24 19:38 40 MG objective Gen.: Patient lying in bed in no apparent distress. On supplemental oxygen. Head: Normocephalic, atraumatic. Eyes: EOMI/PERRLA. Ears: Normal hearing. Normal anatomy. Neck/trachea: Trachea midline, supple. Nose: Normal external anatomy. Mouth: Moist mucous membranes. Chest: Decreased air entry bilaterally. No wheezing or rhonchi. Cardiovascular: Positive S1, positive S2. Regular rate and rhythm. Abdomen: Positive bowel sounds in all 4 quadrants. Soft, non-tender, non- distended. : Deferred. Rectal: Deferred. Skin: Warm, dry. Intact. Extremities: 2+ radial pulses bilaterally. No lower extremity edema. Neuro: Awake, alert, oriented x3. No gross motor or sensory deficits. Cranial nerves II through XII intact. Gait not assessed. laboratory and microbiology Laboratory Tests 10/14/24 05:22 Test 10/14/24 05:22 Range/Units Serum Glucose 162 H 74-106 mg/dL Assessment/Plan Impression: Chronic hypoxic respiratory failure Dependence on supplemental oxygen COPD Emphysema Nicotine dependence Pulmonary cachexia BMI 17.7 Events: Remains on Supplemental oxygen on 2 liters/minute via nasal cannula. Taper O2 as tolerated Continue bronchodilators IV steroids Continue antibiotics Incentive spirometry Monitor WBC count Labs and imaging reviewed. Rest of plan as noted below Plan: Recent chest x-ray from October 11, 2024. No pleural effusion or pneumothorax. No acute opacities. Supplemental oxygen Keep O2 saturation above 92%. Bronchodilators PRN IV steroids with Solu-Medrol Pulmicort Incentive spirometry On antibiotics due to leukocytosis Monitor WBC count Nutritional support recommended due to pulmonary cachexia GI prophylaxis with Pepcid Prognosis: Poor given multiple comorbidities. Rest of plan per hospitalist and other consultants. Thank you JEAN Bliss for allowing me to participate in this patient's care. Further recommendations will depend on patient's clinical course. Please do not hesitate to contact me if you have any questions or concerns. This medical document was created using an electronic medical record system with [employer] dictation system. Although this document has been carefully reviewed, there may still be some phonetic and typographical errors. These areas are purely typographical due to imperfections of the software programs, and do not reflect any compromise in the patient's medical care. Plan discussed with: Patient, Other (CHRISTIANNE Llanes) ZENAIDA VOGEL MD Oct 14, 2024 20:21
[2024-10-14] MEDS: CARVEDILOL 3.125 MG TAB PO SCH (22:00)
[2024-10-14] MEDS: IPRATROPIUM BROM 0.5 MG/2.5ML INH SOL NEB PRN (23:02)
[2024-10-14] MEDS: ALBUTEROL SULF 2.5 MG/0.5ML(0.5%) NEB SOLN NEB PRN (23:02)
[2024-10-15] VITALS (13 sets, daily range): BP systolic 91–112; BP diastolic 43–75; PULSE 53–86; RESP 16–20; TEMP 97.5–98.1; O2SAT 93–100
[2024-10-15 06:15] LABS: Basophils # (auto) 0 10 ^3/uL (0-0.2); Basophils % (auto) 0.1 % (0.0-2.0); Eosinophils # (auto) 0 10 ^3/uL (0-0.8); Hematocrit 42.4 % (41.0-53.0); Hemoglobin 14.2 g/dL (13.5-17.5); Lymphocytes # (auto) 1.2 10 ^3/uL (0.4-5.4); Lymphocytes % (auto) 6.3 % (10.0-50.0); Mean Corpuscular Hgb Conc. 33.4 g/dL (32.0-36.0); Mean Corpuscular Volume 92.7 fL (80.0-100.0); Monocytes # (auto) 0.9 10 ^3/uL (0-1.3); Monocytes % (auto) 4.8 % (0.0-12.0); Neutrophils % (auto) 88.8 % (37.0-80.0); Platelet Count (auto) 197 10^3/uL (140-450); Red Blood Cells 4.58 10^6/uL (4.5-5.90); Red Cell Distribution Width 13.4 % (11.8-14.3); White Blood Cell 19.1 10^3/uL (4.4-10.8)
[2024-10-15 06:40] LABS: Anion Gap 6 (5-15); Carbon Dioxide 29 mmol/L (20-31); Chloride 103 mmol/L (98-107); Potassium 4.7 mmol/L (3.5-5.1); Sodium 138 mmol/L (136-145)
[2024-10-15 06:42] LABS: Calcium 9.2 mg/dL (8.7-10.4)
[2024-10-15 06:47] LABS: BUN/Creatinine Ratio 32.4 (10.0-20.0)
[2024-10-15 06:49] LABS: Blood Urea Nitrogen 33 mg/dL (9-23); Glucose 160 mg/dL (74-106)
[2024-10-15] MEDS: hydroCHLOROthiazide 25 MG TAB PO SCH (09:19)
[2024-10-15] MEDS ORDERED: PRASUGREL HCL 10 MG TAB PO SCH (10:00)
[2024-10-15] MEDS ORDERED: PRED20TA2 PO (10:44)
[2024-10-15] MEDS ORDERED: UMEC1AER IN (10:44)
[2024-10-15] MEDS ORDERED: AZITTAB2 PO (10:44)
[2024-10-15] MEDS ORDERED: ALBU0.636 IN (10:44)
--- NOTE | 2024-10-15 10:47 | DVHDSRES ---
Discharge Summary Date of Admission Resident Creating Document: JASON CARDOSO Oct 13, 2024 at 23:29 Labs/Diagnostic Data: Laboratory Results Test 10/15/24 05:39 10/14/24 15:32 10/14/24 15:00 10/14/24 11:00 White Blood Count 19.1 10^3/uL (4.4-10.8) Red Blood Count 4.58 10^6/uL (4.5-5.90) Hemoglobin 14.2 g/dL (13.5-17.5) Hematocrit 42.4 % (41.0-53.0) Mean Corpuscular Volume 92.7 fL (80.0-100.0) Mean Corpuscular Hemoglobin 31.0 pg (28.0-32.0) Mean Corpuscular Hemoglobin Concent 33.4 g/dL (32.0-36.0) Red Cell Distribution Width 13.4 % (11.8-14.3) Platelet Count 197 10^3/uL (140-450) Mean Platelet Volume 9.1 fL (6.9-10.8) Neutrophils (%) (Auto) 88.8 % (37.0-80.0) Lymphocytes (%) (Auto) 6.3 % (10.0-50.0) Monocytes (%) (Auto) 4.8 % (0.0-12.0) Eosinophils (%) (Auto) 0.0 % (0.0-7.0) Basophils (%) (Auto) 0.1 % (0.0-2.0) Neutrophils # (Auto) 17.0 10 ^3/uL (1.6-8.6) Lymphocytes # (Auto) 1.2 10 ^3/uL (0.4-5.4) Monocytes # (Auto) 0.9 10 ^3/uL (0-1.3) Eosinophils # (Auto) 0 10 ^3/uL (0-0.8) Basophils # (Auto) 0 10 ^3/uL (0-0.2) Nucleated Red Blood Cells 0.0 % Sodium Level 138 mmol/L (136-145) Potassium Level 4.7 mmol/L (3.5-5.1) Chloride Level 103 mmol/L (98-107) Carbon Dioxide Level 29 mmol/L (20-31) Anion Gap 6 (5-15) Blood Urea Nitrogen 33 mg/dL (9-23) Creatinine 1.02 mg/dL (0.700-1.30) Glomerular Filtration Rate Calc 74 mL/min (>90) BUN/Creatinine Ratio 32.4 (10.0-20.0) Serum Glucose 160 mg/dL (74-106) Calcium Level 9.2 mg/dL (8.7-10.4) Magnesium Level 2.0 mg/dL (1.6-2.6) Blood Gas Specimen Type Arterial Blood Gas Sample Site Right radial Blood Gas Patient Temperature 37.0 Arterial Blood Date Drawn [id number] Arterial Blood pH 7.467 (7.350-7.450) Arterial Blood Partial Pressure CO2 37.3 mmHg (35.0-48.0) Arterial Blood Partial Pressure O2 64.6 mmHg (83.0-108.0) Arterial Blood HCO3 26.4 mmol/L (21.0-28.0) Arterial Blood Oxygen Saturation 93.1 % (94.0-98.0) Arterial Blood Base Excess 2.8 mmol/L (-2.0-3.0) Arterial Blood Oxyhemoglobin 91.3 % (94.0-98.0) Arterial Blood Carboxyhemoglobin 1.3 % (0.5-1.5) Arterial Blood Methemoglobin 0.6 % (0.0-1.5) Mao Test Yes Blood Gas Total Hemoglobin 16.00 g/dL (13.5-17.5) Blood Gas Modality Room air FiO2 % 21.0 SARS-CoV-2 Antigen (Rapid) Negative (NEGATIVE) Influenza Type A Antigen Negative (Negative) Influenza Type B Antigen Negative (Negative) Test 10/14/24 05:22 10/13/24 22:00 Total Bilirubin 1.0 mg/dL (0.2-1.0) Aspartate Amino Transferase (AST) 20 U/L (13-40) Alanine Aminotransferase (ALT) 73 U/L (7-40) Alkaline Phosphatase 47 U/L (46-116) Total Protein 6.0 g/dL (5.7-8.2) Albumin 3.7 g/dL (3.2-4.8) Hemoglobin A1c 6.4 % A1C (<5.7) Other Laboratory Tests 10/15/24 05:39 Discharge Statement: "Patient was advised to return to the ER or call 911 if any headaches, dizziness, shortness of breath, chest pain, abdominal pain, bleeding, fevers, or worsening of medical condition. Patient was counseled about treatment plan, medications, possible side effects, patientverbalized understanding. All questions were answered to the best of my ability. This discharge took greater then 30 minutes in planning, reviewing documentation, counseling the patient, and discussing with other team members." ASSESSMENT ASSESSMENT Assessment JASON CARDOSO RESIDENT Oct 15, 2024 10:47
--- NOTE | 2024-10-15 15:15 | DVHPNRES ---
Progress Note Date Seen: Oct 15, 2024 Resident Creating Document: JASON CARDOSO RESIDENT Medical Necessity Reason Pt with a Central, PICC or Fol: No Subjective Review of Systems pt seen and examined at bedside, mentioning of improvement in his symptoms Objective vital signs Vital Sign Date Time Temp Pulse Resp B/P (MAP) Pulse Ox O2 Delivery O2 Flow Rate FiO2 10/15/24 12:47 97.9 56 17 112/58 (76) 98 97.9 10/15/24 09:15 Nasal Cannula* 2 28 Total Intake and Output 10/14/24 10/14/24 10/15/24 15:00 23:00 07:00 Intake Total 50 ml 650 ml Balance 50 ml 650 ml medications Current Medications Medications Dose Ordered Sig/Gloria Route Start Time Stop Time Status Last Admin Dose Admin Albuterol 2.5 mg Q4HPRN PRN NEB 10/13/24 21:45 10/15/24 09:15 2.5 MG Ipratropium [place] 0.5 mg Q4HPRN PRN NEB 10/13/24 21:45 10/15/24 09:15 0.5 MG Methylprednisolone Sodium Succinate 40 mg BID IV 10/13/24 22:00 10/15/24 09:12 40 MG Famotidine 20 mg Q12HR IV 10/13/24 22:00 10/15/24 09:12 20 MG Sodium Chloride 10 ml Q8HR IV 10/13/24 22:00 10/15/24 06:31 10 ML Acetaminophen/ Hydrocodone Bitart 1 tab Q4HP PRN PO 10/13/24 21:45 Docusate Sodium 100 mg BIDPRN PRN PO 10/13/24 21:45 Acetaminophen 650 mg Q6HP PRN PO 10/13/24 21:45 Cefepime HCl 50 ml @ 12.5 mls/hr Q12HR IV 10/14/24 10:00 10/15/24 09:12 12.5 MLS/HR Budesonide 0.5 mg BID NEB 10/14/24 10:00 10/15/24 09:15 0.5 MG Carvedilol 3.125 mg BID PO 10/14/24 22:00 10/15/24 09:20 3.125 MG Hydrochlorothiazide 25 mg DAILY PO 10/15/24 10:00 10/15/24 09:19 25 MG Prasugrel 10 mg DAILY PO 10/15/24 10:00 Hold Enoxaparin Sodium 40 mg DAILY@1800 SC 10/14/24 18:00 10/14/24 19:38 40 MG Examination Examination General Appearance: Alert, Oriented X3, Cooperative, No acute distress HEENT: EOMI Respiratory: Clear to auscultation, Normal air movement Cardiovascular: Regular rate, Normal S1, Normal S2 Abdominal: Normal bowel sounds Extremities: No cyanosis, No edema, Normal pulses, No tenderness/swelling Skin: No rashes, No breakdown Neuro: Normal speech and tone laboratory and microbiology Laboratory Tests 10/15/24 05:39 Test 10/15/24 05:39 Range/Units Serum Glucose 160 H 74-106 mg/dL Microbiology Date/Time Source Procedure Growth Status 10/13/24 23:50 Blood Blood Culture - Preliminary NO GROWTH AFTER 24 HOURS OF INCUBATION. Resulted Labs and/or images reviewed: Labs reviewed by me, Image(s) reviewed by me Problem List/Assessment/Plan Problem List/Assessment/Plan Assessment/Plan #acute on ?Chronic Hypoxic Respiratory failure likely due to COPD/CHF -currently on 2l oxygen -ABG on room air #?COPD exacerbation -Target SpO2 is 88-92%. -Nebulize with Ipratropium and Albuterol -switch to oral prednisone #HFrEF -last echo 30-35% EF -continue home meds #hypertension continue home meds DVT prophylaxis -lovenox 40mg daily Code status discussed with the patient for >21 minutes, FULL CODE Case discussion with Dr Hatfield Plan discussed with: Patient, Other My Orders My Orders Orders - JASON CARDOSO Procedure Category Date Status Time Carvedilol Tablet PHA 10/14/24 In Process (Coreg Tablet) 22:00 Hydrochlorothiazide PHA 10/15/24 In Process Tablet (Hydrochlorot 10:00 Prasugrel Hcl Tablet PHA 10/15/24 In Process (Effient Tablet) 10:00 Enoxaparin Sodium PHA 10/14/24 In Process (Lovenox) 18:00 Schedule For Dc CHANTAL 10/15/24 In Process Clinic F/U 10:39 Date of Service: Oct 15, 2024 Billing Provider: MALI HATFIELD MD Common Visit Codes: [id number] INP/OBS CARE(HIGH) JASON CARDOSO Oct 15, 2024 15:15 MALI HATFIELD MD Oct 16, 2024 11:12
[2024-10-15] MEDS: AZITHROMYCIN 500MG/ 250ML 250 ML IV ONE (17:32)
--- NOTE | 2024-10-15 23:43 | DVHPN2 ---
Progress Note - Dictate Date Seen: Oct 15, 2024 Medical Necessity Reason Pt with a Central, PICC or Fol: No Subjective Patient seen and examined at bedside. Remains on supplemental oxygen Overnight events reviewed. vital signs Vital Sign Date Time Temp Pulse Resp B/P (MAP) Pulse Ox O2 Delivery O2 Flow Rate FiO2 10/15/24 21:33 64 103/50 10/15/24 19:25 18 97 10/15/24 19:15 Nasal Cannula* 2 28 10/15/24 17:03 98.1 98.1 Total Intake and Output 10/14/24 10/14/24 10/15/24 15:00 23:00 07:00 Intake Total 50 ml 650 ml Balance 50 ml 650 ml medications Current Medications Medications Dose Ordered Sig/Gloria Route Start Time Stop Time Status Last Admin Dose Admin Albuterol 2.5 mg Q4HPRN PRN NEB 10/13/24 21:45 10/15/24 19:15 2.5 MG Ipratropium [place] 0.5 mg Q4HPRN PRN NEB 10/13/24 21:45 10/15/24 19:15 0.5 MG Sodium Chloride 10 ml Q8HR IV 10/13/24 22:00 10/15/24 21:31 10 ML Budesonide 0.5 mg BID NEB 10/14/24 10:00 10/15/24 19:15 0.5 MG Carvedilol 3.125 mg BID PO 10/14/24 22:00 10/15/24 09:20 3.125 MG Hydrochlorothiazide 25 mg DAILY PO 10/15/24 10:00 10/15/24 09:19 25 MG Enoxaparin Sodium 40 mg DAILY@1800 SC 10/14/24 18:00 10/14/24 19:38 40 MG Azithromycin 250 ml @ 125 mls/hr DAILY IV 10/16/24 10:00 Prednisone 40 mg DAILY PO 10/16/24 10:00 Prasugrel 10 mg TUTHSA PO 10/16/24 10:00 objective Gen.: Patient lying in bed in no apparent distress. On supplemental oxygen. Head: Normocephalic, atraumatic. Eyes: EOMI/PERRLA. Ears: Normal hearing. Normal anatomy. Neck/trachea: Trachea midline, supple. Nose: Normal external anatomy. Mouth: Moist mucous membranes. Chest: Decreased air entry bilaterally. No wheezing or rhonchi. Cardiovascular: Positive S1, positive S2. Regular rate and rhythm. Abdomen: Positive bowel sounds in all 4 quadrants. Soft, non-tender, non- distended. : Deferred. Rectal: Deferred. Skin: Warm, dry. Intact. Extremities: 2+ radial pulses bilaterally. No lower extremity edema. Neuro: Awake, alert, oriented x3. No gross motor or sensory deficits. Cranial nerves II through XII intact. Gait not assessed. laboratory and microbiology Laboratory Tests 10/15/24 05:39 Test 10/15/24 05:39 Range/Units Serum Glucose 160 H 74-106 mg/dL Assessment/Plan Impression: Chronic hypoxic respiratory failure Dependence on supplemental oxygen COPD Emphysema Nicotine dependence Pulmonary cachexia BMI 17.7 Events: Remains on Supplemental oxygen on 2 liters/minute via nasal cannula. Taper O2 as tolerated Continue bronchodilators IV steroids Continue antibiotics Incentive spirometry Monitor WBC count Assess and arrange for home o2 if necessary. Recommend outpatient PFT Recommend outpatient 6 minute walk test Labs and imaging reviewed. Rest of plan as noted below Plan: Recent chest x-ray from October 11, 2024. No pleural effusion or pneumothorax. No acute opacities. Supplemental oxygen Keep O2 saturation above 92%. Bronchodilators PRN IV steroids with Solu-Medrol Pulmicort Incentive spirometry On antibiotics due to leukocytosis Monitor WBC count Nutritional support recommended due to pulmonary cachexia GI prophylaxis with Pepcid Prognosis: Poor given multiple comorbidities. Rest of plan per hospitalist and other consultants. Thank you JEAN Bliss for allowing me to participate in this patient's care. Further recommendations will depend on patient's clinical course. Please do not hesitate to contact me if you have any questions or concerns. This medical document was created using an electronic medical record system with [employer] dictation system. Although this document has been carefully reviewed, there may still be some phonetic and typographical errors. These areas are purely typographical due to imperfections of the software programs, and do not reflect any compromise in the patient's medical care. Plan discussed with: Patient, Other (RN, MD) ZENAIDA VOGEL MD Oct 15, 2024 23:43
[2024-10-16] VITALS (13 sets, daily range): BP systolic 90–111; BP diastolic 46–66; PULSE 58–94; RESP 14–20; TEMP 97.5–98; O2SAT 94–100
[2024-10-16 10:41] LABS: Chloride 100 mmol/L (98-107); Potassium 4.1 mmol/L (3.5-5.1); Sodium 137 mmol/L (136-145)
[2024-10-16 10:42] LABS: Anion Gap 5 (5-15); Calcium 9.2 mg/dL (8.7-10.4)
[2024-10-16 10:48] LABS: BUN/Creatinine Ratio 36.2 (10.0-20.0); Magnesium 1.8 mg/dL (1.6-2.6)
[2024-10-16 10:52] LABS: Basophils # (auto) 0 10 ^3/uL (0-0.2); Basophils % (auto) 0.2 % (0.0-2.0); Eosinophils # (auto) 0 10 ^3/uL (0-0.8); Eosinophils % (auto) 0.3 % (0.0-7.0); Hematocrit 44.3 % (41.0-53.0); Hemoglobin 14.7 g/dL (13.5-17.5); Lymphocytes # (auto) 3.1 10 ^3/uL (0.4-5.4); Lymphocytes % (auto) 21.6 % (10.0-50.0); Mean Corpuscular Hemoglobin 31.2 pg (28.0-32.0); Mean Corpuscular Hgb Conc. 33.3 g/dL (32.0-36.0); Mean Corpuscular Volume 93.8 fL (80.0-100.0); Monocytes # (auto) 1.2 10 ^3/uL (0-1.3); Monocytes % (auto) 8.5 % (0.0-12.0); Neutrophils # (auto) 9.9 10 ^3/uL (1.6-8.6); Neutrophils % (auto) 69.4 % (37.0-80.0); Platelet Count (auto) 187 10^3/uL (140-450); Red Blood Cells 4.72 10^6/uL (4.5-5.90); Red Cell Distribution Width 13.4 % (11.8-14.3); White Blood Cell 14.3 10^3/uL (4.4-10.8)
[2024-10-16] MEDS: PRASUGREL HCL 10 MG TAB PO SCH (11:04)
[2024-10-16] MEDS: predniSONE 20 MG TAB PO SCH (11:05)
[2024-10-16 11:06] LABS: Blood Urea Nitrogen 34 mg/dL (9-23); Carbon Dioxide 32 mmol/L (20-31); Glucose 109 mg/dL (74-106)
--- NOTE | 2024-10-16 11:17 | CONS ---
Pharmacy Clinical Information: From Heart Failure Fallout Report CQM Application, Steve BuckleyDrake is a 78 year old male with PMH of HFrEF (LVEF 30 -35%), COPD, HTN, HLD. His home medications for heart failure include carvedilol. His inpatient medications include carvedilol. Addition of MRA, SGLT2i, or ACEi/ARB/ARNi currently not recommended due to hypotension. BEVERLY STORY PHARMACIST Oct 16, 2024 11:17
--- NOTE | 2024-10-16 15:40 | DVHPNRES ---
Progress Note Date Seen: Oct 16, 2024 Resident Creating Document: JASON CARDOSO RESIDENT Medical Necessity Reason Pt with a Central, PICC or Fol: No Subjective Review of Systems pt seen and examined at bedside, mentioning of improvement in his symptoms Objective vital signs Vital Sign Date Time Temp Pulse Resp B/P (MAP) Pulse Ox O2 Delivery O2 Flow Rate FiO2 10/16/24 13:00 97.5 60 20 109/66 (80) 95 97.5 10/16/24 10:33 Nasal Cannula* 2 28 Total Intake and Output 10/15/24 10/15/24 10/16/24 15:00 23:00 07:00 Intake Total 676 ml 450 ml Balance 676 ml 450 ml medications Current Medications Medications Dose Ordered Sig/Gloria Route Start Time Stop Time Status Last Admin Dose Admin Albuterol 2.5 mg Q4HPRN PRN NEB 10/13/24 21:45 10/15/24 19:15 2.5 MG Ipratropium [place] 0.5 mg Q4HPRN PRN NEB 10/13/24 21:45 10/15/24 19:15 0.5 MG Sodium Chloride 10 ml Q8HR IV 10/13/24 22:00 10/16/24 14:00 10 ML Budesonide 0.5 mg BID NEB 10/14/24 10:00 10/16/24 10:31 0.5 MG Carvedilol 3.125 mg BID PO 10/14/24 22:00 10/15/24 09:20 3.125 MG Hydrochlorothiazide 25 mg DAILY PO 10/15/24 10:00 10/16/24 11:08 25 MG Enoxaparin Sodium 40 mg DAILY@1800 SC 10/14/24 18:00 10/14/24 19:38 40 MG Azithromycin 250 ml @ 125 mls/hr DAILY IV 10/16/24 10:00 Prednisone 40 mg DAILY PO 10/16/24 10:00 10/16/24 11:05 40 MG Prasugrel 10 mg TUTHSA PO 10/16/24 10:00 10/16/24 11:04 10 MG Examination Examination General Appearance: Alert, Oriented X3, Cooperative, No acute distress HEENT: EOMI Respiratory: Clear to auscultation, Normal air movement Cardiovascular: Regular rate, Normal S1, Normal S2 Abdominal: Normal bowel sounds Extremities: No cyanosis, No edema, Normal pulses, No tenderness/swelling Skin: No rashes, No breakdown Neuro: Normal speech and tone laboratory and microbiology Laboratory Tests 10/16/24 10:10 Test 10/16/24 10:10 Range/Units Serum Glucose 109 H 74-106 mg/dL Microbiology Date/Time Source Procedure Growth Status 10/14/24 11:00 Nose MRSA Screen - Final Complete 10/13/24 23:50 Blood Blood Culture - Preliminary NO GROWTH AFTER 48 HOURS OF INCUBATION. Resulted Labs and/or images reviewed: Labs reviewed by me, Image(s) reviewed by me Problem List/Assessment/Plan Problem List/Assessment/Plan Assessment/Plan #acute on ?Chronic Hypoxic Respiratory failure likely due to COPD/CHF -currently on 2l oxygen -ABG on room air #?COPD exacerbation -Target SpO2 is 88-92%. -Nebulize with Ipratropium and Albuterol -switch to oral prednisone #HFrEF -last echo 30-35% EF -continue home meds #hypertension continue home meds DVT prophylaxis -lovenox 40mg daily Code status discussed with the patient for >21 minutes, FULL CODE Case discussion with Dr Hatfield Plan discussed with: Patient, Other My Orders My Orders Orders - JASON CARDOSO Procedure Category Date Status Time Prasugrel Hcl Tablet PHA 10/16/24 In Process (Effient Tablet) 10:00 Date of Service: Oct 16, 2024 Billing Provider: MALI HATFIELD MD Common Visit Codes: [id number] INP/OBS CARE(MOD) JASON CARDOSO Oct 16, 2024 15:40 MALI HATFIELD MD Oct 16, 2024 15:45
[2024-10-16] MEDS: AZITHROMYCIN 500MG/ 250ML 250 ML IV SCH (18:05)
--- NOTE | 2024-10-16 22:16 | DVHPN2 ---
Progress Note - Dictate Date Seen: Oct 16, 2024 Medical Necessity Reason Pt with a Central, PICC or Fol: No Subjective Patient seen and examined at bedside. Remains on supplemental oxygen Overnight events reviewed. vital signs Vital Sign Date Time Temp Pulse Resp B/P (MAP) Pulse Ox O2 Delivery O2 Flow Rate FiO2 10/16/24 22:00 58 14 95 10/16/24 21:49 111/63 10/16/24 17:00 98.0 98.0 10/16/24 10:33 Nasal Cannula* 2 28 Total Intake and Output 10/15/24 10/15/24 10/16/24 15:00 23:00 07:00 Intake Total 676 ml 450 ml Balance 676 ml 450 ml medications Current Medications Medications Dose Ordered Sig/Gloria Route Start Time Stop Time Status Last Admin Dose Admin Albuterol 2.5 mg Q4HPRN PRN NEB 10/13/24 21:45 10/16/24 22:13 2.5 MG Ipratropium [place] 0.5 mg Q4HPRN PRN NEB 10/13/24 21:45 10/16/24 22:13 0.5 MG Sodium Chloride 10 ml Q8HR IV 10/13/24 22:00 10/16/24 21:48 10 ML Budesonide 0.5 mg BID NEB 10/14/24 10:00 10/16/24 22:06 0.5 MG Carvedilol 3.125 mg BID PO 10/14/24 22:00 10/15/24 09:20 3.125 MG Hydrochlorothiazide 25 mg DAILY PO 10/15/24 10:00 10/16/24 11:08 25 MG Enoxaparin Sodium 40 mg DAILY@1800 SC 10/14/24 18:00 10/14/24 19:38 40 MG Azithromycin 250 ml @ 125 mls/hr DAILY IV 10/16/24 10:00 10/16/24 18:05 125 MLS/HR Prednisone 40 mg DAILY PO 10/16/24 10:00 10/16/24 11:05 40 MG Prasugrel 10 mg TUTHSA PO 10/16/24 10:00 10/16/24 11:04 10 MG objective Gen.: Patient lying in bed in no apparent distress. On supplemental oxygen. Head: Normocephalic, atraumatic. Eyes: EOMI/PERRLA. Ears: Normal hearing. Normal anatomy. Neck/trachea: Trachea midline, supple. Nose: Normal external anatomy. Mouth: Moist mucous membranes. Chest: Decreased air entry bilaterally. No wheezing or rhonchi. Cardiovascular: Positive S1, positive S2. Regular rate and rhythm. Abdomen: Positive bowel sounds in all 4 quadrants. Soft, non-tender, non- distended. : Deferred. Rectal: Deferred. Skin: Warm, dry. Intact. Extremities: 2+ radial pulses bilaterally. No lower extremity edema. Neuro: Awake, alert, oriented x3. No gross motor or sensory deficits. Cranial nerves II through XII intact. Gait not assessed. laboratory and microbiology Laboratory Tests 10/16/24 10:10 Test 10/16/24 10:10 Range/Units Serum Glucose 109 H 74-106 mg/dL Assessment/Plan Impression: Chronic hypoxic respiratory failure Dependence on supplemental oxygen COPD Emphysema Nicotine dependence Pulmonary cachexia BMI 17.7 Events: Remains on Supplemental oxygen on 1 liter/minute via nasal cannula. Taper O2 as tolerated Continue bronchodilators IV steroids Continue antibiotics Incentive spirometry Monitor WBC count Labs and imaging reviewed. Rest of plan as noted below Plan: Recent chest x-ray from October 11, 2024. No pleural effusion or pneumothorax. No acute opacities. Supplemental oxygen Keep O2 saturation between 88-94%. Bronchodilators PRN Pulmicort Incentive spirometry On antibiotics due to leukocytosis Monitor WBC count Nutritional support recommended due to pulmonary cachexia GI prophylaxis with Pepcid Prognosis: Poor given multiple comorbidities. Rest of plan per hospitalist and other consultants. Thank you JEAN Bliss for allowing me to participate in this patient's care. Further recommendations will depend on patient's clinical course. Please do not hesitate to contact me if you have any questions or concerns. This medical document was created using an electronic medical record system with [employer] dictation system. Although this document has been carefully reviewed, there may still be some phonetic and typographical errors. These areas are purely typographical due to imperfections of the software programs, and do not reflect any compromise in the patient's medical care. Plan discussed with: Patient, Other (CHRISTIANNE Parra) ZENAIDA VOGEL MD Oct 16, 2024 22:16
[2024-10-17] VITALS (13 sets, daily range): BP systolic 87–106; BP diastolic 49–62; PULSE 56–79; RESP 14–24; TEMP 97.5–98.3; O2SAT 95–100
--- NOTE | 2024-10-17 13:44 | DVHPNRES ---
Progress Note Date Seen: Oct 17, 2024 Resident Creating Document: JASON CARDOSO RESIDENT Medical Necessity Reason Pt with a Central, PICC or Fol: No Subjective Review of Systems pt seen and examined at bedside, mentioning of improvement in his symptoms Objective vital signs Vital Sign Date Time Temp Pulse Resp B/P (MAP) Pulse Ox O2 Delivery O2 Flow Rate FiO2 10/17/24 13:01 97.9 71 20 87/49 (62) 95 97.9 10/17/24 10:00 Nasal Cannula* 2 28 Total Intake and Output 10/16/24 10/16/24 10/17/24 15:00 23:00 07:00 Intake Total 585 ml 1000 ml Output Total 250 ml Balance 585 ml 750 ml medications Current Medications Medications Dose Ordered Sig/Gloria Route Start Time Stop Time Status Last Admin Dose Admin Albuterol 2.5 mg Q4HPRN PRN NEB 10/13/24 21:45 10/17/24 09:57 2.5 MG Ipratropium [place] 0.5 mg Q4HPRN PRN NEB 10/13/24 21:45 10/17/24 09:57 0.5 MG Sodium Chloride 10 ml Q8HR IV 10/13/24 22:00 10/17/24 05:18 10 ML Budesonide 0.5 mg BID NEB 10/14/24 10:00 10/17/24 09:57 0.5 MG Carvedilol 3.125 mg BID PO 10/14/24 22:00 10/15/24 09:20 3.125 MG Hydrochlorothiazide 25 mg DAILY PO 10/15/24 10:00 10/16/24 11:08 25 MG Enoxaparin Sodium 40 mg DAILY@1800 SC 10/14/24 18:00 10/14/24 19:38 40 MG Azithromycin 250 ml @ 125 mls/hr DAILY IV 10/16/24 10:00 10/17/24 10:45 125 MLS/HR Prednisone 40 mg DAILY PO 10/16/24 10:00 10/17/24 10:45 40 MG Prasugrel 10 mg TUTHSA PO 10/16/24 10:00 10/16/24 11:04 10 MG Examination Examination General Appearance: Alert, Oriented X3, Cooperative, No acute distress HEENT: EOMI Respiratory: Clear to auscultation, Normal air movement Cardiovascular: Regular rate, Normal S1, Normal S2 Abdominal: Normal bowel sounds Extremities: No cyanosis, No edema, Normal pulses, No tenderness/swelling Skin: No rashes, No breakdown Neuro: Normal speech and tone laboratory and microbiology Laboratory Tests 10/16/24 10:10 Test 10/16/24 10:10 Range/Units Serum Glucose 109 H 74-106 mg/dL Microbiology Date/Time Source Procedure Growth Status 10/14/24 11:00 Nose MRSA Screen - Final Complete 10/13/24 23:50 Blood Blood Culture - Preliminary NO GROWTH AFTER 72 HOURS OF INCUBATION. Resulted Problem List/Assessment/Plan Problem List/Assessment/Plan Assessment/Plan #acute on ?Chronic Hypoxic Respiratory failure likely due to COPD/CHF -currently on 2l oxygen -ABG on room air #?COPD exacerbation -Target SpO2 is 88-92%. -Nebulize with Ipratropium and Albuterol -switch to oral prednisone #HFrEF -last echo 30-35% EF -continue home meds #hypertension continue home meds DVT prophylaxis -Lovenox 40mg daily Code status discussed with the patient for >21 minutes, FULL CODE Case discussion with Dr Hatfield Plan discussed with: Patient, Other Date of Service: Oct 17, 2024 Billing Provider: MALI HATFIELD MD Common Visit Codes: [id number] INP/OBS CARE(MOD) JASON CARDOSO RESIDENT Oct 17, 2024 13:44 MALI HATFIELD MD Oct 18, 2024 16:44
--- NOTE | 2024-10-17 23:20 | DVHPN2 ---
Progress Note - Dictate Date Seen: Oct 17, 2024 Medical Necessity Reason Pt with a Central, PICC or Fol: No Subjective Patient seen and examined at bedside. Remains on supplemental oxygen Overnight events reviewed. vital signs Vital Sign Date Time Temp Pulse Resp B/P (MAP) Pulse Ox O2 Delivery O2 Flow Rate FiO2 10/17/24 22:37 97 Nasal Cannula 2.0 10/17/24 22:37 73 18 10/17/24 22:37 28 10/17/24 22:00 98.1 106/59 (75) 98.1 Total Intake and Output 10/16/24 10/16/24 10/17/24 15:00 23:00 07:00 Intake Total 585 ml 1000 ml Output Total 250 ml Balance 585 ml 750 ml medications Current Medications Medications Dose Ordered Sig/Gloria Route Start Time Stop Time Status Last Admin Dose Admin Albuterol 2.5 mg Q4HPRN PRN NEB 10/13/24 21:45 10/17/24 22:37 2.5 MG Ipratropium [place] 0.5 mg Q4HPRN PRN NEB 10/13/24 21:45 10/17/24 22:37 0.5 MG Sodium Chloride 10 ml Q8HR IV 10/13/24 22:00 10/17/24 21:35 10 ML Budesonide 0.5 mg BID NEB 10/14/24 10:00 10/17/24 22:37 0.5 MG Carvedilol 3.125 mg BID PO 10/14/24 22:00 10/15/24 09:20 3.125 MG Hydrochlorothiazide 25 mg DAILY PO 10/15/24 10:00 10/16/24 11:08 25 MG Enoxaparin Sodium 40 mg DAILY@1800 SC 10/14/24 18:00 10/17/24 17:51 40 MG Azithromycin 250 ml @ 125 mls/hr DAILY IV 10/16/24 10:00 10/17/24 10:45 125 MLS/HR Prednisone 40 mg DAILY PO 10/16/24 10:00 10/17/24 10:45 40 MG Prasugrel 10 mg TUTHSA PO 10/16/24 10:00 10/16/24 11:04 10 MG objective Gen.: Patient lying in bed in no apparent distress. On supplemental oxygen. Head: Normocephalic, atraumatic. Eyes: EOMI/PERRLA. Ears: Normal hearing. Normal anatomy. Neck/trachea: Trachea midline, supple. Nose: Normal external anatomy. Mouth: Moist mucous membranes. Chest: Decreased air entry bilaterally. No wheezing or rhonchi. Cardiovascular: Positive S1, positive S2. Regular rate and rhythm. Abdomen: Positive bowel sounds in all 4 quadrants. Soft, non-tender, non- distended. : Deferred. Rectal: Deferred. Skin: Warm, dry. Intact. Extremities: 2+ radial pulses bilaterally. No lower extremity edema. Neuro: Awake, alert, oriented x3. No gross motor or sensory deficits. Cranial nerves II through XII intact. Gait not assessed. laboratory and microbiology Laboratory Tests 10/16/24 10:10 Test 10/16/24 10:10 Range/Units Serum Glucose 109 H 74-106 mg/dL Assessment/Plan Impression: Chronic hypoxic respiratory failure Dependence on supplemental oxygen COPD Emphysema Nicotine dependence Pulmonary cachexia BMI 17.7 Events: Remains on supplemental oxygen on 2 liters/minute via nasal cannula. Taper O2 as tolerated Continue bronchodilators IV steroids Continue antibiotics Incentive spirometry Monitor WBC count Arrange for home O2. Labs and imaging reviewed. Rest of plan as noted below Plan: Recent chest x-ray from October 11, 2024. No pleural effusion or pneumothorax. No acute opacities. Supplemental oxygen Keep O2 saturation between 88-94%. Bronchodilators PRN Pulmicort Incentive spirometry On antibiotics due to leukocytosis Monitor WBC count Nutritional support recommended due to pulmonary cachexia GI prophylaxis with Pepcid Prognosis: Poor given multiple comorbidities. Rest of plan per hospitalist and other consultants. Thank you JEAN Bliss for allowing me to participate in this patient's care. Further recommendations will depend on patient's clinical course. Please do not hesitate to contact me if you have any questions or concerns. This medical document was created using an electronic medical record system with [employer] dictation system. Although this document has been carefully reviewed, there may still be some phonetic and typographical errors. These areas are purely typographical due to imperfections of the software programs, and do not reflect any compromise in the patient's medical care. Plan discussed with: Patient, Other (CHRISTIANNE Parra) ZENAIDA VOGEL MD Oct 17, 2024 23:20
[2024-10-18] VITALS (13 sets, daily range): BP systolic 102–121; BP diastolic 53–66; PULSE 55–84; RESP 16–20; TEMP 97.1–98.4; O2SAT 87–99
--- NOTE | 2024-10-18 11:43 | DVHPN2 ---
Progress Note - Dictate Date Seen: Oct 17, 2024 Medical Necessity Reason Pt with a Central, PICC or Fol: No Subjective PT WITH COPD ENDSTAGE NEEDS O2 PROGRESSIVE SX SOB NEGRETE HYPOXIA ENDSTAGE COPD TOBACCO USE CACHEXIA [facility] ON 2021 1. Left main calcified, no flow restrictive lesion. Left anterior descending artery, mild intimal irregularity without any flow restrictive lesion. 2. Circumflex, mild intimal irregularity without any flow restrictive lesion. 3. Right coronary artery, mild intimal irregularity without any flow restrictive lesion. 4. Left ventricular function shows global hypokinesis with an estimated EF around 30-35% with an LVEDD EF of 10 mmHg with no gradient across the aortic valve with aortic valve pressure of 110. 5. Left and right iliac angiography shows moderate diffuse disease with heavy calcification while there was no flow restrictive lesion noted. At this time, conservative medical management should be implemented for the lower extremity, aggressive risk modification and again encouraged the patient to discontinue smoking. At this time, no catheter-based or surgical intervention is warranted for both coronary or peripheral anatomy. HFrEF CHRONIC CXR EMPHYSEMA vital signs Vital Sign Date Time Temp Pulse Resp B/P (MAP) Pulse Ox O2 Delivery O2 Flow Rate FiO2 10/18/24 10:00 92 Nasal Cannula 2.0 10/18/24 10:00 28 10/18/24 09:23 103/52 10/18/24 09:23 59 10/18/24 08:34 97.1 16 97.1 Total Intake and Output 10/17/24 10/17/24 10/18/24 15:00 23:00 07:00 Intake Total 250 ml 658 ml 325 ml Output Total 200 ml Balance 250 ml 458 ml 325 ml medications Current Medications Medications Dose Ordered Sig/Gloria Route Start Time Stop Time Status Last Admin Dose Admin Albuterol 2.5 mg Q4HPRN PRN NEB 10/13/24 21:45 10/17/24 22:37 2.5 MG Ipratropium [place] 0.5 mg Q4HPRN PRN NEB 10/13/24 21:45 10/17/24 22:37 0.5 MG Sodium Chloride 10 ml Q8HR IV 10/13/24 22:00 10/18/24 05:18 10 ML Budesonide 0.5 mg BID NEB 10/14/24 10:00 10/18/24 07:27 0.5 MG Carvedilol 3.125 mg BID PO 10/14/24 22:00 10/15/24 09:20 3.125 MG Hydrochlorothiazide 25 mg DAILY PO 10/15/24 10:00 10/16/24 11:08 25 MG Enoxaparin Sodium 40 mg DAILY@1800 SC 10/14/24 18:00 10/17/24 17:51 40 MG Azithromycin 250 ml @ 125 mls/hr DAILY IV 10/16/24 10:00 10/18/24 09:23 125 MLS/HR Prednisone 40 mg DAILY PO 10/16/24 10:00 10/18/24 09:23 40 MG Prasugrel 10 mg TUTHSA PO 10/16/24 10:00 10/16/24 11:04 10 MG laboratory and microbiology Laboratory Tests 10/16/24 10:10 Test 10/16/24 10:10 Range/Units Serum Glucose 109 H 74-106 mg/dL Problem List COPD ENDSTAGE NEEDS O2 PROGRESSIVE SX SOB NEGRETE HYPOXIA ENDSTAGE COPD TOBACCO USE [facility] ON 2021 1. Left main calcified, no flow restrictive lesion. Left anterior descending artery, mild intimal irregularity without any flow restrictive lesion. 2. Circumflex, mild intimal irregularity without any flow restrictive lesion. 3. Right coronary artery, mild intimal irregularity without any flow restrictive lesion. 4. Left ventricular function shows global hypokinesis with an estimated EF around 30-35% with an LVEDD EF of 10 mmHg with no gradient across the aortic valve with aortic valve pressure of 110. 5. Left and right iliac angiography shows moderate diffuse disease with heavy calcification while there was no flow restrictive lesion noted. At this time, conservative medical management should be implemented for the lower extremity, aggressive risk modification and again encouraged the patient to discontinue smoking. At this time, no catheter-based or surgical intervention is warranted for both coronary or peripheral anatomy. HFrEF CHRONIC CXR EMPHYSEMA Assessment/Plan HOME 02 HOME INHALER DC HOME WHEN THE ABOVE HAS BEEN ARRANGED Plan discussed with: Patient MI ORTEGA MD Oct 18, 2024 11:43
--- NOTE | 2024-10-18 11:43 | DVHPN2 ---
Progress Note - Dictate Date Seen: Oct 16, 2024 Medical Necessity Reason Pt with a Central, PICC or Fol: No Subjective PT WITH COPD ENDSTAGE NEEDS O2 PROGRESSIVE SX SOB NEGRETE HYPOXIA ENDSTAGE COPD TOBACCO USE CACHEXIA [facility] ON 2021 1. Left main calcified, no flow restrictive lesion. Left anterior descending artery, mild intimal irregularity without any flow restrictive lesion. 2. Circumflex, mild intimal irregularity without any flow restrictive lesion. 3. Right coronary artery, mild intimal irregularity without any flow restrictive lesion. 4. Left ventricular function shows global hypokinesis with an estimated EF around 30-35% with an LVEDD EF of 10 mmHg with no gradient across the aortic valve with aortic valve pressure of 110. 5. Left and right iliac angiography shows moderate diffuse disease with heavy calcification while there was no flow restrictive lesion noted. At this time, conservative medical management should be implemented for the lower extremity, aggressive risk modification and again encouraged the patient to discontinue smoking. At this time, no catheter-based or surgical intervention is warranted for both coronary or peripheral anatomy. HFrEF CHRONIC CXR EMPHYSEMA vital signs Vital Sign Date Time Temp Pulse Resp B/P (MAP) Pulse Ox O2 Delivery O2 Flow Rate FiO2 10/18/24 10:00 92 Nasal Cannula 2.0 10/18/24 10:00 28 10/18/24 09:23 103/52 10/18/24 09:23 59 10/18/24 08:34 97.1 16 97.1 Total Intake and Output 10/17/24 10/17/24 10/18/24 15:00 23:00 07:00 Intake Total 250 ml 658 ml 325 ml Output Total 200 ml Balance 250 ml 458 ml 325 ml medications Current Medications Medications Dose Ordered Sig/Gloria Route Start Time Stop Time Status Last Admin Dose Admin Albuterol 2.5 mg Q4HPRN PRN NEB 10/13/24 21:45 10/17/24 22:37 2.5 MG Ipratropium [place] 0.5 mg Q4HPRN PRN NEB 10/13/24 21:45 10/17/24 22:37 0.5 MG Sodium Chloride 10 ml Q8HR IV 10/13/24 22:00 10/18/24 05:18 10 ML Budesonide 0.5 mg BID NEB 10/14/24 10:00 10/18/24 07:27 0.5 MG Carvedilol 3.125 mg BID PO 10/14/24 22:00 10/15/24 09:20 3.125 MG Hydrochlorothiazide 25 mg DAILY PO 10/15/24 10:00 10/16/24 11:08 25 MG Enoxaparin Sodium 40 mg DAILY@1800 SC 10/14/24 18:00 10/17/24 17:51 40 MG Azithromycin 250 ml @ 125 mls/hr DAILY IV 10/16/24 10:00 10/18/24 09:23 125 MLS/HR Prednisone 40 mg DAILY PO 10/16/24 10:00 10/18/24 09:23 40 MG Prasugrel 10 mg TUTHSA PO 10/16/24 10:00 10/16/24 11:04 10 MG laboratory and microbiology Laboratory Tests 10/16/24 10:10 Test 10/16/24 10:10 Range/Units Serum Glucose 109 H 74-106 mg/dL Problem List COPD ENDSTAGE NEEDS O2 PROGRESSIVE SX SOB NEGRETE HYPOXIA ENDSTAGE COPD TOBACCO USE [facility] ON 2021 1. Left main calcified, no flow restrictive lesion. Left anterior descending artery, mild intimal irregularity without any flow restrictive lesion. 2. Circumflex, mild intimal irregularity without any flow restrictive lesion. 3. Right coronary artery, mild intimal irregularity without any flow restrictive lesion. 4. Left ventricular function shows global hypokinesis with an estimated EF around 30-35% with an LVEDD EF of 10 mmHg with no gradient across the aortic valve with aortic valve pressure of 110. 5. Left and right iliac angiography shows moderate diffuse disease with heavy calcification while there was no flow restrictive lesion noted. At this time, conservative medical management should be implemented for the lower extremity, aggressive risk modification and again encouraged the patient to discontinue smoking. At this time, no catheter-based or surgical intervention is warranted for both coronary or peripheral anatomy. HFrEF CHRONIC CXR EMPHYSEMA Assessment/Plan HOME 02 HOME INHALER DC HOME WHEN THE ABOVE HAS BEEN ARRANGED Plan discussed with: Patient, Spouse MI ORTEGA MD Oct 18, 2024 11:43
--- NOTE | 2024-10-18 19:42 | DVHPNRES ---
Progress Note Date Seen: Oct 18, 2024 Resident Creating Document: JASON CARDOSO RESIDENT Medical Necessity Reason Pt with a Central, PICC or Fol: No Subjective Review of Systems pt seen and examined at bedside, mentioning of improvement in his symptoms. Objective vital signs Vital Sign Date Time Temp Pulse Resp B/P (MAP) Pulse Ox O2 Delivery O2 Flow Rate FiO2 10/18/24 17:00 97.5 65 18 110/64 (79) 94 97.5 10/18/24 10:00 Nasal Cannula 2.0 10/18/24 10:00 28 Total Intake and Output 10/17/24 10/17/24 10/18/24 15:00 23:00 07:00 Intake Total 250 ml 658 ml 325 ml Output Total 200 ml Balance 250 ml 458 ml 325 ml medications Current Medications Medications Dose Ordered Sig/Gloria Route Start Time Stop Time Status Last Admin Dose Admin Albuterol 2.5 mg Q4HPRN PRN NEB 10/13/24 21:45 10/17/24 22:37 2.5 MG Ipratropium [place] 0.5 mg Q4HPRN PRN NEB 10/13/24 21:45 10/17/24 22:37 0.5 MG Sodium Chloride 10 ml Q8HR IV 10/13/24 22:00 10/18/24 13:37 10 ML Budesonide 0.5 mg BID NEB 10/14/24 10:00 10/18/24 07:27 0.5 MG Carvedilol 3.125 mg BID PO 10/14/24 22:00 10/15/24 09:20 3.125 MG Hydrochlorothiazide 25 mg DAILY PO 10/15/24 10:00 10/16/24 11:08 25 MG Enoxaparin Sodium 40 mg DAILY@1800 SC 10/14/24 18:00 10/18/24 17:50 40 MG Azithromycin 250 ml @ 125 mls/hr DAILY IV 10/16/24 10:00 10/18/24 09:23 125 MLS/HR Prednisone 40 mg DAILY PO 10/16/24 10:00 10/18/24 09:23 40 MG Prasugrel 10 mg TUTHSA PO 10/16/24 10:00 10/16/24 11:04 10 MG Examination Examination General Appearance: Alert, Oriented X3, Cooperative, No acute distress HEENT: EOMI Respiratory: Clear to auscultation, Normal air movement Cardiovascular: Regular rate, Normal S1, Normal S2 Abdominal: Normal bowel sounds Extremities: No cyanosis, No edema, Normal pulses, No tenderness/swelling Skin: No rashes, No breakdown Neuro: Normal speech and tone laboratory and microbiology Laboratory Tests 10/16/24 10:10 Test 10/16/24 10:10 Range/Units Serum Glucose 109 H 74-106 mg/dL Microbiology Date/Time Source Procedure Growth Status 10/14/24 11:00 Nose MRSA Screen - Final Complete 10/13/24 23:50 Blood Blood Culture - Preliminary NO GROWTH AFTER 72 HOURS OF INCUBATION. Resulted Labs and/or images reviewed: Labs reviewed by me, Image(s) reviewed by me Problem List/Assessment/Plan Problem List/Assessment/Plan Assessment/Plan #acute on ?Chronic Hypoxic Respiratory failure likely due to COPD/CHF -currently on 2l oxygen -ABG on room air #?COPD exacerbation -Target SpO2 is 88-92%. -Nebulize with Ipratropium and Albuterol -switch to oral prednisone #HFrEF -last echo 30-35% EF -continue home Meds #hypertension continue home Meds DVT prophylaxis -Lovenox 40mg daily Code status discussed with the patient for >21 minutes, FULL CODE Case discussion with Dr Hatfield Plan discussed with: Patient, Other Date of Service: Oct 18, 2024 Billing Provider: MALI HATFIELD MD Common Visit Codes: [id number] INP/OBS CARE(LOW) JASON CARDOSO RESIDENT Oct 18, 2024 19:42 MALI HATFIELD MD Oct 22, 2024 19:45
--- NOTE | 2024-10-18 22:22 | DVHPN2 ---
Progress Note - Dictate Date Seen: Oct 18, 2024 Medical Necessity Reason Pt with a Central, PICC or Fol: No Subjective Patient seen and examined at bedside. Remains on supplemental oxygen Overnight events reviewed. vital signs Vital Sign Date Time Temp Pulse Resp B/P (MAP) Pulse Ox O2 Delivery O2 Flow Rate FiO2 10/18/24 21:49 63 116/60 10/18/24 20:00 99 Nasal Cannula* 2 28 10/18/24 17:00 97.5 18 97.5 Total Intake and Output 10/17/24 10/17/24 10/18/24 15:00 23:00 07:00 Intake Total 250 ml 658 ml 325 ml Output Total 200 ml Balance 250 ml 458 ml 325 ml medications Current Medications Medications Dose Ordered Sig/Gloria Route Start Time Stop Time Status Last Admin Dose Admin Albuterol 2.5 mg Q4HPRN PRN NEB 10/13/24 21:45 10/17/24 22:37 2.5 MG Ipratropium [place] 0.5 mg Q4HPRN PRN NEB 10/13/24 21:45 10/17/24 22:37 0.5 MG Sodium Chloride 10 ml Q8HR IV 10/13/24 22:00 10/18/24 21:50 10 ML Budesonide 0.5 mg BID NEB 10/14/24 10:00 10/18/24 07:27 0.5 MG Carvedilol 3.125 mg BID PO 10/14/24 22:00 10/18/24 21:49 3.125 MG Hydrochlorothiazide 25 mg DAILY PO 10/15/24 10:00 10/16/24 11:08 25 MG Enoxaparin Sodium 40 mg DAILY@1800 SC 10/14/24 18:00 10/18/24 17:50 40 MG Azithromycin 250 ml @ 125 mls/hr DAILY IV 10/16/24 10:00 10/18/24 09:23 125 MLS/HR Prednisone 40 mg DAILY PO 10/16/24 10:00 10/18/24 09:23 40 MG Prasugrel 10 mg TUTHSA PO 10/16/24 10:00 10/16/24 11:04 10 MG objective Gen.: Patient lying in bed in no apparent distress. On supplemental oxygen. Head: Normocephalic, atraumatic. Eyes: EOMI/PERRLA. Ears: Normal hearing. Normal anatomy. Neck/trachea: Trachea midline, supple. Nose: Normal external anatomy. Mouth: Moist mucous membranes. Chest: Decreased air entry bilaterally. No wheezing or rhonchi. Cardiovascular: Positive S1, positive S2. Regular rate and rhythm. Abdomen: Positive bowel sounds in all 4 quadrants. Soft, non-tender, non- distended. : Deferred. Rectal: Deferred. Skin: Warm, dry. Intact. Extremities: 2+ radial pulses bilaterally. No lower extremity edema. Neuro: Awake, alert, oriented x3. No gross motor or sensory deficits. Cranial nerves II through XII intact. Gait not assessed. laboratory and microbiology Laboratory Tests 10/16/24 10:10 Test 10/16/24 10:10 Range/Units Serum Glucose 109 H 74-106 mg/dL Assessment/Plan Impression: Chronic hypoxic respiratory failure Dependence on supplemental oxygen COPD Emphysema Nicotine dependence Pulmonary cachexia BMI 17.7 Events: Remains on supplemental oxygen on 2 liters/minute via nasal cannula. Taper O2 as tolerated Note - pt refused room air trial (ABG + O2 sat). Continue bronchodilators Continue steroids - PO Prednisone Continue antibiotics Incentive spirometry Monitor WBC count Arrange for home O2. Labs and imaging reviewed. Rest of plan as noted below Plan: Recent chest x-ray from October 11, 2024. No pleural effusion or pneumothorax. No acute opacities. Supplemental oxygen Keep O2 saturation between 88-94%. Bronchodilators PRN Pulmicort Incentive spirometry On antibiotics due to leukocytosis Monitor WBC count Nutritional support recommended due to pulmonary cachexia GI prophylaxis with Pepcid Prognosis: Poor given multiple comorbidities. Rest of plan per hospitalist and other consultants. Thank you JEAN Bliss for allowing me to participate in this patient's care. Further recommendations will depend on patient's clinical course. Please do not hesitate to contact me if you have any questions or concerns. This medical document was created using an electronic medical record system with [employer] dictation system. Although this document has been carefully reviewed, there may still be some phonetic and typographical errors. These areas are purely typographical due to imperfections of the software programs, and do not reflect any compromise in the patient's medical care. Plan discussed with: Patient, Other (ZENAIDA Mayo MD Oct 18, 2024 22:22
[2024-10-19] VITALS (8 sets, daily range): BP systolic 87–126; BP diastolic 47–68; PULSE 60–76; RESP 16–20; TEMP 97.7–98.3; O2SAT 94–100
--- NOTE | 2024-10-19 13:21 | DVHDSRES ---
Discharge Summary Date of Admission Resident Creating Document: JASON CARDOSO Oct 13, 2024 at 23:29 Date of Discharge: Oct 19, 2024 Admitting Diagnosis Shortness of breath Labs/Diagnostic Data: Laboratory Results Test 10/16/24 10:10 10/14/24 15:32 10/14/24 15:00 10/14/24 11:00 White Blood Count 14.3 10^3/uL (4.4-10.8) Red Blood Count 4.72 10^6/uL (4.5-5.90) Hemoglobin 14.7 g/dL (13.5-17.5) Hematocrit 44.3 % (41.0-53.0) Mean Corpuscular Volume 93.8 fL (80.0-100.0) Mean Corpuscular Hemoglobin 31.2 pg (28.0-32.0) Mean Corpuscular Hemoglobin Concent 33.3 g/dL (32.0-36.0) Red Cell Distribution Width 13.4 % (11.8-14.3) Platelet Count 187 10^3/uL (140-450) Mean Platelet Volume 9.1 fL (6.9-10.8) Neutrophils (%) (Auto) 69.4 % (37.0-80.0) Lymphocytes (%) (Auto) 21.6 % (10.0-50.0) Monocytes (%) (Auto) 8.5 % (0.0-12.0) Eosinophils (%) (Auto) 0.3 % (0.0-7.0) Basophils (%) (Auto) 0.2 % (0.0-2.0) Neutrophils # (Auto) 9.9 10 ^3/uL (1.6-8.6) Lymphocytes # (Auto) 3.1 10 ^3/uL (0.4-5.4) Monocytes # (Auto) 1.2 10 ^3/uL (0-1.3) Eosinophils # (Auto) 0 10 ^3/uL (0-0.8) Basophils # (Auto) 0 10 ^3/uL (0-0.2) Nucleated Red Blood Cells 0.0 % Sodium Level 137 mmol/L (136-145) Potassium Level 4.1 mmol/L (3.5-5.1) Chloride Level 100 mmol/L (98-107) Carbon Dioxide Level 32 mmol/L (20-31) Anion Gap 5 (5-15) Blood Urea Nitrogen 34 mg/dL (9-23) Creatinine 0.94 mg/dL (0.700-1.30) Glomerular Filtration Rate Calc 82 mL/min (>90) BUN/Creatinine Ratio 36.2 (10.0-20.0) Serum Glucose 109 mg/dL (74-106) Calcium Level 9.2 mg/dL (8.7-10.4) Magnesium Level 1.8 mg/dL (1.6-2.6) Blood Gas Specimen Type Arterial Blood Gas Sample Site Right radial Blood Gas Patient Temperature 37.0 Arterial Blood Date Drawn [id number] Arterial Blood pH 7.467 (7.350-7.450) Arterial Blood Partial Pressure CO2 37.3 mmHg (35.0-48.0) Arterial Blood Partial Pressure O2 64.6 mmHg (83.0-108.0) Arterial Blood HCO3 26.4 mmol/L (21.0-28.0) Arterial Blood Oxygen Saturation 93.1 % (94.0-98.0) Arterial Blood Base Excess 2.8 mmol/L (-2.0-3.0) Arterial Blood Oxyhemoglobin 91.3 % (94.0-98.0) Arterial Blood Carboxyhemoglobin 1.3 % (0.5-1.5) Arterial Blood Methemoglobin 0.6 % (0.0-1.5) Mao Test Yes Blood Gas Total Hemoglobin 16.00 g/dL (13.5-17.5) Blood Gas Modality Room air FiO2 % 21.0 SARS-CoV-2 Antigen (Rapid) Negative (NEGATIVE) Influenza Type A Antigen Negative (Negative) Influenza Type B Antigen Negative (Negative) Test 10/14/24 05:22 10/13/24 22:00 Total Bilirubin 1.0 mg/dL (0.2-1.0) Aspartate Amino Transferase (AST) 20 U/L (13-40) Alanine Aminotransferase (ALT) 73 U/L (7-40) Alkaline Phosphatase 47 U/L (46-116) Total Protein 6.0 g/dL (5.7-8.2) Albumin 3.7 g/dL (3.2-4.8) Hemoglobin A1c 6.4 % A1C (<5.7) Other Laboratory Tests 10/16/24 10:10 Brief Hx & Hospital Course: 78-year-old male patient with past medical history of heart failure with reduced ejection fraction, COPD, hypertension, hyperlipidemia presented with complaint of shortness of breath. Patient was recently discharged on Tuesday for COPD exacerbation. Patient mentioned that he was waiting for his home oxygen arrangement while his oxygen cylinder got finished when he reached home and started having shortness of breath. He also mentioned that he smoked four cigarettes after going to home because of stress. One arrival, patient was started on oxygen, nebulized with ipratropium and albuterol, started on methylprednisolone IV. Order Tracer was consulted. Dr. Morrison, patient's primary care doctor was also consulted. Patient was started on home medications and IV antibiotics. Patient mentioned improvement in his symptoms. Family Health Nurse Practitioner was consulted to arrange home oxygen. At the time of discharge, patient had stable vitals, no new complaints. Discharge plan was discussed with the patient and patient advised to follow up with PCP within one week. Patient was prescribed with albuterol, prednisolone, azithromycin and Umeclidinum-Vilanterol. Home oxygen was arranged by patient's primary care physician before discharge. Examination on the day of discharge General Appearance: Alert, Oriented X3, Cooperative, No acute distress HEENT: EOMI Respiratory: Clear to auscultation, Normal air movement, wheezing resolved Cardiovascular: Regular rate, Normal S1, Normal S2 Abdominal: Normal bowel sounds Extremities: No cyanosis, No edema, Normal pulses, No tenderness/swelling Skin: No rashes, No breakdown Neuro: Normal speech and tone Discussed with Dr. Moraes Consults/Reason for consult Pulmonology consult Condition at Discharge: Stable Final Diagnosis/Problems List COPD Exacerbation Sirs/sepsis ruled out Heart failure with preserved ejection fraction Hypertension Hyperlipidemia Discharge Disposition: Home (With home oxygen) Discharge Instruct/Medications Diet: Cardiac 2g Na,low cholest Activity: No Restrictions, As Tolerated Follow Up/Referral: f/u with PCP within 1 week Medications: script sent to pharmacy for albuterol, prednisolone, azithromycin and Umeclidinum-Vilanterol. Discharge Statement: "Patient was advised to return to the ER or call 911 if any headaches, dizziness, shortness of breath, chest pain, abdominal pain, bleeding, fevers, or worsening of medical condition. Patient was counseled about treatment plan, medications, possible side effects, patientverbalized understanding. All questions were answered to the best of my ability. This discharge took greater then 30 minutes in planning, reviewing documentation, counseling the patient, and discussing with other team members." ASSESSMENT ASSESSMENT Assessment COPD Exacerbation Addendum Addendum Addendum I was physically present for the urbano portions of the service provided to patient by THE RESIDENT. I have reviewed the documentation, discussed the case with resident and agree with the resident's documentation except as noted. Also the patient's clinical case was discussed with the patient's nurse. This medical document was created using an electronic medical record system with computerized dictation system. Although this document has been carefully reviewed, there might still be some phonetic and typographical errors. These areas are purely typographical due to imperfections of the software programs, and do not reflect any compromise in the patient's medical care. Late signature. Date of Service: Oct 19, 2024 Billing Provider: JILLIAN MORAES MD Common Visit Codes: 55340-RNM/OBS DISCH DAY >30min JASON CARDOSO RESIDENT Oct 19, 2024 13:21 JILLIAN MORAES MD Oct 20, 2024 13:58
--- NOTE | 2024-10-19 13:21 | DVHCONRES ---
Family History: Diabetes mellitus MATERNAL GRANDMOTHER, Onset:Unknown Allergies: Coded Allergies: Amoxicillin (Verified Allergy, Unknown, 12/22/21) Clavulanic Acid (Verified Allergy, Unknown, 12/22/21) Home Meds Active Scripts Albuterol Sulfate (Albuterol Sulfate) 0.63 Mg/3 Ml Neb, 0.63 MG IN TIDP PRN for 30 Days, #1 INH [facility] 10/15/24 Umeclidinium-Vilanterol (Anoro Ellipta 62.5-25 Mcg/INH) 1 Aer Aer, 1 AER IN DAILY for 30 Days, #1 AER Prov:[facility] 10/15/24 Azithromycin (Zithromax Tri-Vivek) 500 Mg Tab, 500 MG PO DAILY for 3 Days, #3 TAB Prov:[facility] 10/15/24 Prednisone (Prednisone) 20 Mg Tab, 40 MG PO DAILY for 5 Days, #10 MG Prov:[facility] 10/15/24 Reported Medications Carvedilol (Carvedilol) 3.125 Mg Tab, 1 TAB PO BID 10/07/24 Prasugrel Hydrochloride (Effient) 10 Mg Tab, 10 MG PO for BLOOD THINNER, TAB TAKE EVERY OTHER DAY. 11/09/18 Hctz (Hydrochlorothiazide) 25 Mg Tab, 25 MG PO DAILY for EDEMA, TAB 11/09/18 Vital Signs Vital Signs Date Time Temp Pulse Resp B/P (MAP) Pulse Ox O2 Delivery O2 Flow Rate FiO2 10/19/24 10:58 76 16 100 10/19/24 10:52 Nasal Cannula 2.0 10/19/24 10:52 28 10/19/24 10:23 126/53 10/19/24 09:00 98.0 98.0 Labs/Diagnostic Data Labs Test 10/16/24 10:10 10/14/24 15:32 10/14/24 15:00 10/14/24 11:00 Range/Units White Blood Count 14.3 #H 4.4-10.8 10^3/uL Red Blood Count 4.72 4.5-5.90 10^6/uL Hemoglobin 14.7 13.5-17.5 g/dL Hematocrit 44.3 41.0-53.0 % Mean Corpuscular Volume 93.8 80.0-100.0 fL Mean Corpuscular Hemoglobin 31.2 28.0-32.0 pg Mean Corpuscular Hemoglobin Concent 33.3 32.0-36.0 g/dL Red Cell Distribution Width 13.4 11.8-14.3 % Platelet Count 187 140-450 10^3/uL Mean Platelet Volume 9.1 6.9-10.8 fL Neutrophils (%) (Auto) 69.4 37.0-80.0 % Lymphocytes (%) (Auto) 21.6 10.0-50.0 % Monocytes (%) (Auto) 8.5 0.0-12.0 % Eosinophils (%) (Auto) 0.3 0.0-7.0 % Basophils (%) (Auto) 0.2 0.0-2.0 % Neutrophils # (Auto) 9.9 H 1.6-8.6 10 ^3/uL Lymphocytes # (Auto) 3.1 0.4-5.4 10 ^3/uL Monocytes # (Auto) 1.2 0-1.3 10 ^3/uL Eosinophils # (Auto) 0 0-0.8 10 ^3/uL Basophils # (Auto) 0 0-0.2 10 ^3/uL Nucleated Red Blood Cells 0.0 % Sodium Level 137 136-145 mmol/L Potassium Level 4.1 3.5-5.1 mmol/L Chloride Level 100 98-107 mmol/L Carbon Dioxide Level 32 H 20-31 mmol/L Anion Gap 5 5-15 Blood Urea Nitrogen 34 H 9-23 mg/dL Creatinine 0.94 0.700-1.30 mg/dL Glomerular Filtration Rate Calc 82 >90 mL/min BUN/Creatinine Ratio 36.2 H 10.0-20.0 Serum Glucose 109 H 74-106 mg/dL Calcium Level 9.2 8.7-10.4 mg/dL Magnesium Level 1.8 1.6-2.6 mg/dL Blood Gas Specimen Type Arterial Blood Gas Sample Site Right radial Blood Gas Patient Temperature 37.0 Arterial Blood Date Drawn [id number] Arterial Blood pH 7.467 H 7.350-7.450 Arterial Blood Partial Pressure CO2 37.3 35.0-48.0 mmHg Arterial Blood Partial Pressure O2 64.6 L 83.0-108.0 mmHg Arterial Blood HCO3 26.4 21.0-28.0 mmol/L Arterial Blood Oxygen Saturation 93.1 L 94.0-98.0 % Arterial Blood Base Excess 2.8 -2.0-3.0 mmol/L Arterial Blood Oxyhemoglobin 91.3 L 94.0-98.0 % Arterial Blood Carboxyhemoglobin 1.3 0.5-1.5 % Arterial Blood Methemoglobin 0.6 0.0-1.5 % Mao Test Yes Blood Gas Total Hemoglobin 16.00 13.5-17.5 g/dL Blood Gas Modality Room air FiO2 % 21.0 SARS-CoV-2 Antigen (Rapid) Negative NEGATIVE Influenza Type A Antigen Negative Negative Influenza Type B Antigen Negative Negative Test 10/14/24 05:22 10/13/24 22:00 Range/Units Total Bilirubin 1.0 0.2-1.0 mg/dL Aspartate Amino Transferase (AST) 20 13-40 U/L Alanine Aminotransferase (ALT) 73 H 7-40 U/L Alkaline Phosphatase 47 46-116 U/L Total Protein 6.0 5.7-8.2 g/dL Albumin 3.7 3.2-4.8 g/dL Hemoglobin A1c 6.4 H <5.7 % A1C Microbiology Date/Time Source Procedure Growth Status 10/14/24 11:00 Nose MRSA Screen - Final Complete 10/13/24 23:50 Blood Blood Culture - Final NO GROWTH AFTER 5 DAYS OF INCUBATION. Complete JASON CARDOSO RESIDENT Oct 19, 2024 13:21
--- NOTE | 2024-10-19 13:57 | DVHPN2 ---
Progress Note - Dictate Date Seen: Oct 18, 2024 Medical Necessity Reason Pt with a Central, PICC or Fol: No Subjective PT WITH COPD ENDSTAGE NEEDS O2 PROGRESSIVE SX SOB NEGRETE HYPOXIA ENDSTAGE COPD TOBACCO USE CACHEXIA [facility] ON 2021 1. Left main calcified, no flow restrictive lesion. Left anterior descending artery, mild intimal irregularity without any flow restrictive lesion. 2. Circumflex, mild intimal irregularity without any flow restrictive lesion. 3. Right coronary artery, mild intimal irregularity without any flow restrictive lesion. 4. Left ventricular function shows global hypokinesis with an estimated EF around 30-35% with an LVEDD EF of 10 mmHg with no gradient across the aortic valve with aortic valve pressure of 110. 5. Left and right iliac angiography shows moderate diffuse disease with heavy calcification while there was no flow restrictive lesion noted. At this time, conservative medical management should be implemented for the lower extremity, aggressive risk modification and again encouraged the patient to discontinue smoking. At this time, no catheter-based or surgical intervention is warranted for both coronary or peripheral anatomy. HFrEF CHRONIC CXR EMPHYSEMA vital signs Vital Sign Date Time Temp Pulse Resp B/P (MAP) Pulse Ox O2 Delivery O2 Flow Rate FiO2 10/19/24 13:28 66 10/19/24 10:58 16 100 10/19/24 10:52 Nasal Cannula 2.0 10/19/24 10:52 28 10/19/24 10:23 126/53 10/19/24 09:00 98.0 98.0 Total Intake and Output 10/18/24 10/18/24 10/19/24 15:00 23:00 07:00 Intake Total 250 ml 400 ml 900 ml Balance 250 ml 400 ml 900 ml medications Current Medications Medications Dose Ordered Sig/Gloria Route Start Time Stop Time Status Last Admin Dose Admin Albuterol 2.5 mg Q4HPRN PRN NEB 10/13/24 21:45 10/17/24 22:37 2.5 MG Ipratropium [place] 0.5 mg Q4HPRN PRN NEB 10/13/24 21:45 10/17/24 22:37 0.5 MG Sodium Chloride 10 ml Q8HR IV 10/13/24 22:00 10/19/24 05:31 10 ML Budesonide 0.5 mg BID NEB 10/14/24 10:00 10/19/24 10:52 0.5 MG Carvedilol 3.125 mg BID PO 10/14/24 22:00 10/19/24 09:23 3.125 MG Hydrochlorothiazide 25 mg DAILY PO 10/15/24 10:00 10/19/24 09:22 25 MG Enoxaparin Sodium 40 mg DAILY@1800 SC 10/14/24 18:00 10/18/24 17:50 40 MG Azithromycin 250 ml @ 125 mls/hr DAILY IV 10/16/24 10:00 10/19/24 09:24 125 MLS/HR Prednisone 40 mg DAILY PO 10/16/24 10:00 10/19/24 09:22 40 MG Prasugrel 10 mg TUTHSA PO 10/16/24 10:00 10/16/24 11:04 10 MG laboratory and microbiology Laboratory Tests 10/16/24 10:10 Test 10/16/24 10:10 Range/Units Serum Glucose 109 H 74-106 mg/dL Problem List COPD ENDSTAGE NEEDS O2 PROGRESSIVE SX SOB NEGRETE HYPOXIA ENDSTAGE COPD TOBACCO USE [facility] ON 2021 1. Left main calcified, no flow restrictive lesion. Left anterior descending artery, mild intimal irregularity without any flow restrictive lesion. 2. Circumflex, mild intimal irregularity without any flow restrictive lesion. 3. Right coronary artery, mild intimal irregularity without any flow restrictive lesion. 4. Left ventricular function shows global hypokinesis with an estimated EF around 30-35% with an LVEDD EF of 10 mmHg with no gradient across the aortic valve with aortic valve pressure of 110. 5. Left and right iliac angiography shows moderate diffuse disease with heavy calcification while there was no flow restrictive lesion noted. At this time, conservative medical management should be implemented for the lower extremity, aggressive risk modification and again encouraged the patient to discontinue smoking. At this time, no catheter-based or surgical intervention is warranted for both coronary or peripheral anatomy. HFrEF CHRONIC CXR EMPHYSEMA Assessment/Plan HOME 02 HOME INHALER DC HOME WHEN THE ABOVE HAS BEEN ARRANGED DISCUSSED WITH PATIENT [facility] PROGNOSIS Plan discussed with: Patient, Spouse MI ORTEGA MD Oct 19, 2024 13:57
--- NOTE | 2024-10-19 13:58 | DVHPN2 ---
Progress Note - Dictate Date Seen: Oct 19, 2024 Medical Necessity Reason Pt with a Central, PICC or Fol: No Subjective PT WITH COPD ENDSTAGE NEEDS O2 PROGRESSIVE SX SOB NEGRETE HYPOXIA ENDSTAGE COPD TOBACCO USE CACHEXIA [facility] ON 2021 1. Left main calcified, no flow restrictive lesion. Left anterior descending artery, mild intimal irregularity without any flow restrictive lesion. 2. Circumflex, mild intimal irregularity without any flow restrictive lesion. 3. Right coronary artery, mild intimal irregularity without any flow restrictive lesion. 4. Left ventricular function shows global hypokinesis with an estimated EF around 30-35% with an LVEDD EF of 10 mmHg with no gradient across the aortic valve with aortic valve pressure of 110. 5. Left and right iliac angiography shows moderate diffuse disease with heavy calcification while there was no flow restrictive lesion noted. At this time, conservative medical management should be implemented for the lower extremity, aggressive risk modification and again encouraged the patient to discontinue smoking. At this time, no catheter-based or surgical intervention is warranted for both coronary or peripheral anatomy. HFrEF CHRONIC CXR EMPHYSEMA vital signs Vital Sign Date Time Temp Pulse Resp B/P (MAP) Pulse Ox O2 Delivery O2 Flow Rate FiO2 10/19/24 13:28 66 10/19/24 10:58 16 100 10/19/24 10:52 Nasal Cannula 2.0 10/19/24 10:52 28 10/19/24 10:23 126/53 10/19/24 09:00 98.0 98.0 Total Intake and Output 10/18/24 10/18/24 10/19/24 15:00 23:00 07:00 Intake Total 250 ml 400 ml 900 ml Balance 250 ml 400 ml 900 ml medications Current Medications Medications Dose Ordered Sig/Gloria Route Start Time Stop Time Status Last Admin Dose Admin Albuterol 2.5 mg Q4HPRN PRN NEB 10/13/24 21:45 10/17/24 22:37 2.5 MG Ipratropium [place] 0.5 mg Q4HPRN PRN NEB 10/13/24 21:45 10/17/24 22:37 0.5 MG Sodium Chloride 10 ml Q8HR IV 10/13/24 22:00 10/19/24 05:31 10 ML Budesonide 0.5 mg BID NEB 10/14/24 10:00 10/19/24 10:52 0.5 MG Carvedilol 3.125 mg BID PO 10/14/24 22:00 10/19/24 09:23 3.125 MG Hydrochlorothiazide 25 mg DAILY PO 10/15/24 10:00 10/19/24 09:22 25 MG Enoxaparin Sodium 40 mg DAILY@1800 SC 10/14/24 18:00 10/18/24 17:50 40 MG Azithromycin 250 ml @ 125 mls/hr DAILY IV 10/16/24 10:00 10/19/24 09:24 125 MLS/HR Prednisone 40 mg DAILY PO 10/16/24 10:00 10/19/24 09:22 40 MG Prasugrel 10 mg TUTHSA PO 10/16/24 10:00 10/16/24 11:04 10 MG laboratory and microbiology Laboratory Tests 10/16/24 10:10 Test 10/16/24 10:10 Range/Units Serum Glucose 109 H 74-106 mg/dL Problem List COPD ENDSTAGE NEEDS O2 PROGRESSIVE SX SOB NEGRETE HYPOXIA ENDSTAGE COPD TOBACCO USE [facility] ON 2021 1. Left main calcified, no flow restrictive lesion. Left anterior descending artery, mild intimal irregularity without any flow restrictive lesion. 2. Circumflex, mild intimal irregularity without any flow restrictive lesion. 3. Right coronary artery, mild intimal irregularity without any flow restrictive lesion. 4. Left ventricular function shows global hypokinesis with an estimated EF around 30-35% with an LVEDD EF of 10 mmHg with no gradient across the aortic valve with aortic valve pressure of 110. 5. Left and right iliac angiography shows moderate diffuse disease with heavy calcification while there was no flow restrictive lesion noted. At this time, conservative medical management should be implemented for the lower extremity, aggressive risk modification and again encouraged the patient to discontinue smoking. At this time, no catheter-based or surgical intervention is warranted for both coronary or peripheral anatomy. HFrEF CHRONIC CXR EMPHYSEMA Assessment/Plan HOME 02 HOME INHALER DC HOME WHEN THE ABOVE HAS BEEN ARRANGED DISCUSSED WITH PATIENT [facility] PROGNOSIS DC HOME TODAY ALL ARRANGEMENT HAS BEEN MADE FOR HOME O2 AND NEBULIZER Plan discussed with: Patient, Spouse MI ORTEGA MD Oct 19, 2024 13:58
--- NOTE | 2024-10-19 23:25 | DVHPN2 ---
Progress Note - Dictate Date Seen: Oct 19, 2024 Medical Necessity Reason Pt with a Central, PICC or Fol: No Subjective Patient seen and examined at bedside. Remains on supplemental oxygen Overnight events reviewed. vital signs Vital Sign Date Time Temp Pulse Resp B/P (MAP) Pulse Ox O2 Delivery O2 Flow Rate FiO2 10/19/24 13:28 66 10/19/24 13:00 97.7 18 126/52 (76) 96 97.7 10/19/24 10:52 Nasal Cannula 2.0 10/19/24 10:52 28 Total Intake and Output 10/18/24 10/18/24 10/19/24 15:00 23:00 07:00 Intake Total 250 ml 400 ml 900 ml Balance 250 ml 400 ml 900 ml objective Gen.: Patient lying in bed in no apparent distress. On supplemental oxygen. Head: Normocephalic, atraumatic. Eyes: EOMI/PERRLA. Ears: Normal hearing. Normal anatomy. Neck/trachea: Trachea midline, supple. Nose: Normal external anatomy. Mouth: Moist mucous membranes. Chest: Decreased air entry bilaterally. No wheezing or rhonchi. Cardiovascular: Positive S1, positive S2. Regular rate and rhythm. Abdomen: Positive bowel sounds in all 4 quadrants. Soft, non-tender, non- distended. : Deferred. Rectal: Deferred. Skin: Warm, dry. Intact. Extremities: 2+ radial pulses bilaterally. No lower extremity edema. Neuro: Awake, alert, oriented x3. No gross motor or sensory deficits. Cranial nerves II through XII intact. Gait not assessed. laboratory and microbiology Laboratory Tests 10/16/24 10:10 Test 10/16/24 10:10 Range/Units Serum Glucose 109 H 74-106 mg/dL Assessment/Plan Impression: Chronic hypoxic respiratory failure Dependence on supplemental oxygen COPD Emphysema Nicotine dependence Pulmonary cachexia BMI 17.7 Events: Remains on supplemental oxygen on 2 liters/minute via nasal cannula. Taper O2 as tolerated Continue bronchodilators Continue steroids - PO Prednisone Continue antibiotics Incentive spirometry Monitor WBC count Arrange for home O2. Patient is stable for discharge from the pulmonary standpoint. Follow up in 2-3 weeks in Pulmonary Clinic. Labs and imaging reviewed. Rest of plan as noted below Plan: Recent chest x-ray from October 11, 2024. No pleural effusion or pneumothorax. No acute opacities. Supplemental oxygen Keep O2 saturation between 88-94%. Bronchodilators PRN Pulmicort Incentive spirometry On antibiotics due to leukocytosis Monitor WBC count Nutritional support recommended due to pulmonary cachexia GI prophylaxis with Pepcid Prognosis: Poor given multiple comorbidities. Rest of plan per hospitalist and other consultants. Thank you JEAN Bliss for allowing me to participate in this patient's care. Further recommendations will depend on patient's clinical course. Please do not hesitate to contact me if you have any questions or concerns. This medical document was created using an electronic medical record system with [employer] dictation system. Although this document has been carefully reviewed, there may still be some phonetic and typographical errors. These areas are purely typographical due to imperfections of the software programs, and do not reflect any compromise in the patient's medical care. Plan discussed with: Patient, Other (RN Shraddha) ZENAIDA VOGEL MD Oct 19, 2024 23:25
== END 2024-10-19 14:10 | disposition home or self-care (01) | DRG 189 ==
LOC: ER 14:47 → TELE 23:29 → TELE-WESTW 10-14 09:45 → WEST WING 10-15 07:57
PROVIDERS: ADMIT Internal Medicine; ATTEND Internal Medicine
DX: J96.21 Acute and chronic respiratory failure with hypoxia (principal); J44.1 Chronic obstructive pulmonary disease with (acute) exacerbation; R64 Cachexia; Z68.1 Body mass index [BMI] 19.9 or less, adult; I50.22 Chronic systolic (congestive) heart failure; I11.0 Hypertensive heart disease with heart failure; J43.9 Emphysema, unspecified; F17.210 Nicotine dependence, cigarettes, uncomplicated; E78.5 Hyperlipidemia, unspecified; Z99.81 Dependence on supplemental oxygen; Z83.3 Family history of diabetes mellitus
CPT/HCPCS: 36415; 36600; 80048; 80053; 82805; 83036; 83735; 85025; 87040; 87081; 87426; 87804; 94640; G0378; J3490

== ENCOUNTER → 2024-10-30 | Outpatient (CLI) | payer MEDICARE, OTHER, MEDICAID ==
[~2024-10-30] MED LIST changes: +ALBU0.636 IN; +AZITTAB2 PO; +IOHEXOL 350 MG/ML 100ML IJ ONE; +PRED20TA2 PO; +READI-CAT 2 (BARIUM SULF)(VANILLA SMOOTHIE) 450ML ONE; +UMEC1AER IN
[2024-10-30 12:00] VITALS: BP 138/68; PULSE 16; RESP 16; O2SAT 98
[2024-10-30 12:53] VITALS: BP 127/62; PULSE 65; RESP 16; O2SAT 98
--- NOTE | 2024-10-30 12:54 | DVH ---
Exam: CT CT ABD PELVIS W CON-ORAL IV History: ABD PAIN TECHNIQUE: A digital director of content marketing image was obtained. During the uneventful, intravenous administration of c ontrast material, multislice data acquisition was obtained through the abdomen and pelvis. The data s et was subsequently reconstructed into axial images. Images were reviewed on a work station using a c ombination of axial and multiplanar using a variety of window levels and settings. 100 cc of Omnipaqu e 300 contrast was injected intravenously. All CT scans at this medical facility are performed using dose modulation techniques as appropriate t o a performed exam including the following:Automated exposure control was utilized; adjustment of the MA and/or KV according to patient size; and use of iterative reconstruction technique. Radiation Dose Information: CT Dose: CTDI volume is 3.54 mGy. Dose-length product is 137.97 mGy*cm Comparison: CT CT CHST AB PLV W CON-ORAL IV on DOS: 02/03/24 FINDINGS: There is mild fatty infiltration of the liver. There is a 5.2 cm simple appearing cyst in the upper pole of the left kidney. There is no evidence o f nephrolithiasis or hydronephrosis. The gallbladder, pancreas, adrenal glands, and spleen appear within normal limits. There is no evidence of abdominal lymphadenopathy. There is no free fluid or free air. The stomach grossly appears unremarkable. The small and large bowel loops demonstrate normal caliber and appear within normal limits.. There are calcified atherosclerotic changes in the abdominal aorta. The IVC appears within normal whiteside its. The bladder appears within normal limits the degree of distention. There is stable appearance of the prostate gland with central calcifications. There is no evidence of a pelvic mass or lymphadenopathy . There is no free fluid collection. Lung bases are clear. There is scoliotic curvature of the lumbar spine with multilevel degenerative changes. IMPRESSION: 1. There is no acute process in the abdomen and pelvis.. 2. Mild fatty infiltration of the liver. 3. Scoliotic curvature of the lumbar spine with multilevel degenerative changes. HS:Y
== END | disposition home or self-care (01) ==
LOC: Rad HDHVI 11:55
PROVIDERS: ATTEND Internal Medicine Cardiovascular Disease
DX: K76.0 Fatty (change of) liver, not elsewhere classified (principal); I70.0 Atherosclerosis of aorta; M41.86 Other forms of scoliosis, lumbar region; M47.816 Spondylosis without myelopathy or radiculopathy, lumbar region; R63.4 Abnormal weight loss; R06.02 Shortness of breath; R10.9 Unspecified abdominal pain
CPT/HCPCS: 74177; G0463; Q9967

== ENCOUNTER → 2025-01-25 | Outpatient (CLI) | payer MEDICARE, OTHER, MEDICAID ==
[~2025-01-25] MED LIST changes: -READI-CAT 2 (BARIUM SULF)(VANILLA SMOOTHIE) 450ML ONE
[2025-01-25 11:28] VITALS: BP 111/76; PULSE 76; RESP 16; O2SAT 94
[2025-01-25 11:45] VITALS: BP 116/57; PULSE 76; RESP 16; O2SAT 94
--- NOTE | 2025-01-25 14:35 | DVH ---
Procedure: CT CHEST WITH CONTRAST Reason for study/Clinical History: R/O CA Comparison Study: None available at time of dictation. Exam Date: 01/25/2025 11:28 AM Radiation Dose Information: CT Dose: CTDI volume is 7.08 mGy. Dose-length product is 283.02 mGy*cm Contrast: Type of contrast: Omnipaque Contrast inject: 100 mL Contrast wasted:0 TECHNIQUE: After the uneventful administration of intravenous contrast intravenously, CT imaging was performed through the chest. Coronal and sagittal reformations were performed by the technologist. FINDINGS: Lower Neck: Visualized portions of the thyroid gland are unremarkable. Heterogeneous enhancement of t he pulmonary artery can not exclude pulmonary emboli. Aorta and Vasculature: Normal caliber of thoracic aorta. Lymph Nodes: No enlarged intrathoracic lymph nodes. Mediastinum: Heart size is normal. There is no pericardial effusion. The esophagus is unremarkable. Lungs: No pulmonary nodules or masses. Musculoskeletal: No acute osseous abnormality. Upper abdomen: 5.7 cm cortical cysts left kidney IMPRESSION: 1. No pulmonary nodules or masses. 2. Heterogeneous opacification of the pulmonary artery and right and left pulmonary arteries can not exclude pulmonary emboli. 3. No osseous metastasis All CT scans at this medical facility are performed using dose modulation techniques as appropriate t o a performed exam including the following: Automated exposure control was utilized; adjustment of th e MA and/or KV according to patient size; and use of iterative reconstruction technique. HS:Y
== END | disposition home or self-care (01) ==
LOC: Rad HDHVI 10:55
PROVIDERS: ATTEND Internal Medicine Cardiovascular Disease
DX: I50.33 Acute on chronic diastolic (congestive) heart failure (principal); N28.1 Cyst of kidney, acquired
CPT/HCPCS: 71260; 93306; G0463; Q9967